=== PATIENT | female | born 1945 | race African-American/Black ===

== ENCOUNTER 2016-04-27 10:30 | Emergency (ER) | payer OTHER ==
[2016-04-27 10:51] VITALS: BMI 40.8
[2016-04-27] MEDS ORDERED: SODIUM CHLORIDE 1,000 ML IV STA (11:01)
--- NOTE | 2016-04-27 11:07 | PDOC ---
History of Present Illness - History of Present Illness Initial Comments: 04/27/16 11:02 70-year-old female with a past medical history of hypertension, hyperlipidemia, and hiatal hernia Patient has no history of CAD, although she has a strong family history of CAD PCP-Dr. Oneil Prasad Patient is complaining of 4-5 days of bilateral neck pain, more on the left lateral neck, less on the right lateral neck, radiating into the left face and into the left head She denies any associated fevers or chills, she denies any posterior neck pain She has had a left sided headache with this off and on This is been going on for 4-5 days and is unrelated to turning her head or changing in position She denies any focal neurologic symptoms She denies any dental pain She denies any cough She states that she did not go to the salon recently or have her head extended back She denies any whiplash or flexion-extension injury She denies any trauma to her neck She denies any chest pain or arm pain She denies any weakness or difficulty walking She states that this pain came on spontaneously She denies any other complaints at this time, and the remainder of the review of systems is negative <Shayla Woodson - Last Filed: 04/28/16 17:54> <Cecilia Riggs - Last Filed: 04/28/16 22:47> - General Chief Complaint: Pain, Acute Stated Complaint: NECK PAIN Time Seen by Provider: 04/27/16 10:44 Past History - Past Medical History Anemia: No Asthma: No Cancer: No GI Disorders: Yes (HIATAL HERNIA) HTN: Yes Hypercholesterolemia: Yes Suicide Attempt (Hx): No - Immunization History Immunization Up to Date: Yes - Psycho/Social/Smoking Cessation Hx Anxiety: No Suicidal Ideation: No Smoking Status: No Smoking History: Never smoked Have you smoked in the past 12 months: No Number of Cigarettes Smoked Daily: 0 Information on smoking cessation initiated: No Hx Alcohol Use: No Drug/Substance Use Hx: No Substance Use Type: None <Shayla Woodson - Last Filed: 04/28/16 17:54> <Cecilia Riggs - Last Filed: 04/28/16 22:47> - Past Medical History Allergies/Adverse Reactions: Allergies Allergy/AdvReac Type Severity Reaction Status Date / Time No Known Allergies Allergy Verified 04/27/16 10:51 Home Medications: Ambulatory Orders Rosuvastatin Calcium [Crestor] 20 mg PO DAILY 03/22/12 Amlodipine Besylate [Norvasc -] 5 mg PO DAILY 06/23/13 Aspirin [ASA -] 81 mg PO DAILY tab.chew 10/09/15 Carvedilol 25 mg PO BID 04/27/16 Quinapril/Hydrochlorothiazide [Accuretic 20-12.5 mg Tablet] 1 each PO DAILY 07/09 Review of Systems - Review of Systems Able to Perform ROS?: Yes Comments:: 04/27/16 11:04 12 point review of systems is as per history of present illness and otherwise negative <Shayla Woodson - Last Filed: 04/28/16 17:54> *Physical Exam - Vital Signs Last Vital Signs Temp Pulse Resp BP Pulse Ox 97.8 F 65 18 175/90 96 04/27/16 10:49 04/27/16 10:49 04/27/16 10:49 04/27/16 10:49 04/27/16 10:49 - Physical Exam Comments: 04/27/16 11:05 Physical exam Last Vital Signs Temp Pulse Resp BP Pulse Ox 97.8 F 65 18 175/90 96 04/27/16 10:49 04/27/16 10:49 04/27/16 10:49 04/27/16 10:49 04/27/16 10:49 GENERAL: The patient is awake, alert, and fully oriented, and in no apparent distress. HEAD: Normal with no signs of trauma. EYES: Pupils equal, round and reactive to light, extraocular movements intact, sclera anicteric, conjunctiva are normal. ENT: nares patent, oropharynx clear without exudates. Moist mucous membranes. There is some left cheek tenderness, although there is no evidence of gum tenderness or dental infection NECK: Normal range of motion, supple without lymphadenopathy, JVD, or masses. There is some diffuse left lateral neck tenderness, without definite adenopathy palpated There is lesser right lateral neck tenderness, with out definite adenopathy palpated There is no midline C-spine tenderness No thyroid mass is palpated LUNGS: Breath sounds equal, clear to auscultation bilaterally. No wheezes, and no crackles. HEART: Regular rate and rhythm, normal S1 and S2 without murmur, rub or gallop. ABDOMEN: Soft, nontender, normoactive bowel sounds. No guarding, no rebound. No masses appreciated. EXTREMITIES: Normal range of motion, no edema. No clubbing or cyanosis. No cords, erythema, or tenderness. NEURO: Mental status: The patient is oriented x3. Cranial nerves: Cranial nerves II through XII are intact Motor: The upper extremities are 5 over 5 in all muscle groups. The lower extremities are 5 over 5 in all muscle groups. Sensation: Sensation is intact to light touch throughout. Cerebellar: [id number] is normal in both upper extremities. Heel-knee- joe is normal in both lower extremities. Gait: Normal. PSYCH: Normal mood, normal affect. SKIN: Warm, Dry, normal turgor, no rashes or lesions noted. <Shayla Woodson - Last Filed: 04/28/16 17:54> - Vital Signs Last Vital Signs Temp Pulse Resp BP Pulse Ox 97.8 F 72 16 134/62 99 04/27/16 10:49 04/27/16 11:21 04/27/16 11:21 04/27/16 11:21 04/27/16 11:21 <Cecilia Riggs - Last Filed: 04/28/16 22:47> ED Treatment Course - LABORATORY CBC & Chemistry Diagram: 04/27/16 11:20 04/27/16 11:20 - RADIOLOGY Radiology Studies Ordered: Category Date Time Status HEAD CT WITH AND W/O CONTRAST [CT] Stat CT Scan 04/27/16 10:59 Ordered NECK CTA [CT] Stat CT Scan 04/27/16 10:59 Ordered CHEST X-RAY PORTABLE* [RAD] Stat Radiology 04/27/16 10:58 Ordered <Shayla Woodson - Last Filed: 04/28/16 17:54> - LABORATORY CBC & Chemistry Diagram: 04/27/16 11:20 04/27/16 11:20 - ADDITIONAL ORDERS Additional order review: Laboratory Results 04/27/16 04/27/16 11:20 11:20 Sodium 141 Potassium 4.1 Chloride 102 Carbon Dioxide 32 Anion Gap 7 L BUN 18 Creatinine 1.1 H Creat Clearance w eGFR 49.25 Random Glucose 106 Calcium 8.6 Magnesium 1.9 Total Bilirubin 0.7 AST 21 ALT 17 D Alkaline Phosphatase 87 Creatine Kinase 191 D CK-MB (CK-2) < 1.000 Troponin I < 0.02 Total Protein 7.0 Albumin 3.6 TSH 0.68 04/27/16 11:20 RBC 4.79 MCV 77.5 L MCHC 31.6 L RDW 15.9 H MPV 8.3 - Medications Given in the ED: ED Medications Discontinued Medications Generic Name Dose Route Start Last Admin Trade Name Sanjuana PRN Reason Stop Dose Admin Acetaminophen 650 mg 04/27/16 11:40 04/27/16 12:00 Tylenol - PO 04/27/16 11:41 650 mg ONCE ONE Administration Sodium Chloride 1,000 mls @ 500 mls/hr 04/27/16 11:01 04/27/16 11:20 Normal Saline - IV 04/27/16 13:00 500 mls/hr ASDIR STA Administration <Cecilia Riggs - Last Filed: 04/28/16 22:47> Medical Decision Making - Medical Decision Making 04/27/16 11:06 70-year-old female with constellation of symptoms is noted One concern would be carotid dissection Which start with labwork, and CTA of the head and neck 04/27/16 17:27 Laboratory Results - last 24 hr 04/27/16 04/27/16 04/27/16 11:20 11:20 11:20 WBC 7.9 RBC 4.79 Hgb 11.7 Hct 37.1 MCV 77.5 L MCHC 31.6 L RDW 15.9 H Plt Count 201 D MPV 8.3 Sodium 141 Potassium 4.1 Chloride 102 Carbon Dioxide 32 Anion Gap 7 L BUN 18 Creatinine 1.1 H Creat Clearance w eGFR 49.25 Random Glucose 106 Calcium 8.6 Magnesium 1.9 Total Bilirubin 0.7 AST 21 ALT 17 D Alkaline Phosphatase 87 Creatine Kinase 191 D CK-MB (CK-2) < 1.000 Troponin I < 0.02 Total Protein 7.0 Albumin [address] head with and without-NAD Awaiting reading on CTA neck SIGN OUT Case discussed in detail with oncoming Emergency Physician including history, physical exam and ancillary studies. Oncoming Emergency Physician has assumed care for the patient and will complete the evaluation and treatment. Transfer of care to Dr. Riggs at 5:30 PM awaiting reading on CTA neck <Shayla Woodson Last Filed: 04/28/16 17:54> - Medical Decision Making 04/28/16 22:46 CTA neck NEGATIVE for any carotid dissection -there was significant discogenic disease particularly in c4,c5 pt discharged home <Cecilia Riggs - Last Filed: 04/28/16 22:47> *DC/Admit/Observation/Transfer <Shayla Woodson - Last Filed: 04/28/16 17:54> <Cecilia Riggs - Last Filed: 04/28/16 22:47> Diagnosis at time of Disposition: Neck pain, Discogenic cervical pain - Discharge Dispostion Disposition: HOME Condition at time of disposition: Stable - Referrals Referrals: Gerardo Thomas MD [Staff Physician] - - Patient Instructions Printed Discharge Instructions: DI for Neck Pain, DI for Degenerative Disc Disease Additional Instructions: please follow up with your primary doctor You should see orthopedist for further evaluation
[2016-04-27 11:33] LABS: MCH 24.5 pg (25.7-33.7); MCHC 31.6 g/dl (32.0-36.0); MEAN CELL VOLUME 77.5 fl (80-96); MEAN PLT VOLUME 8.3 fl (7.5-11.1); PLATELET COUNT 201 K/MM3 (134-434); RDW 15.9 % (11.6-15.6); WHITE BLOOD COUNT 7.9 K/mm3 (4.0-10.0)
[2016-04-27] MEDS ORDERED: ACETAMINOPHEN 325 MG TABLET (FP) PO ONE (11:40)
[2016-04-27] MEDS ORDERED: ACETAMINOPHEN 325 MG TABLET (FP) ONE (11:57)
[2016-04-27 11:59] LABS: ALBUMIN 3.6 g/dl (3.4-5.0); ANION GAP 7 (8-16); BILIRUBIN,TOTAL 0.7 mg/dL (0.2-1.0); CALCIUM 8.6 mg/dL (8.5-10.1); CO2 32 mmol/L (21-32); CREATININE 1.1 mg/dL (0.55-1.02); GLUCOSE,RANDOM 106 mg/dL (74-106); MAGNESIUM 1.9 mg/dL (1.8-2.4); SGPT/ALT 17 U/L (12-78)
[2016-04-27 12:01] LABS: ALK PHOS 87 U/L (45-117); TROPONIN I < 0.02 ng/ml (0.00-0.05)
[2016-04-27 12:02] LABS: SGOT/AST 21 U/L (15-37)
--- NOTE | 2016-04-27 19:03 | EKG ---
Test Reason : Blood Pressure : / mmHG Vent. Rate : 064 BPM Atrial Rate : 064 BPM P-R Int : 230 ms QRS Dur : 098 ms QT Int : 436 ms P-R-T Axes : 052 -31 -03 degrees QTc Int : 449 ms SINUS RHYTHM WITH 1ST DEGREE A-V BLOCK LEFT AXIS DEVIATION NONSPECIFIC T WAVE ABNORMALITY ABNORMAL ECG WHEN COMPARED WITH ECG OF 05-DEC-2015 21:23, FLAT T WAVES NOW EVIDENT IN INFEROLATERAL LEADS Confirmed by NIKKY JOHN MD ([id number]) on 04/27/2016 7:03:08 PM Referred By: Confirmed By:NIKKY JOHN MD
[2016-04-27] MEDS ORDERED: IBUPROFEN 600 MG TABLET (FP) PO ONE ×2 (19:12→19:25)
[2016-04-27 19:38] VITALS: BP 121/82; PULSE 66; TEMP 97.9
== END 2016-04-27 19:42 | disposition home or self-care (01) ==
LOC: JER 10:30
PROC: 3E0337Z Introduction of Electrolytic and Water Balance Substance into Peripheral Vein, Percutaneous Approach (ICD-10-PCS; principal; 2016-04-27)
DX: M50.30 Other cervical disc degeneration, unspecified cervical region (principal); I10 Essential (primary) hypertension; E78.00 Pure hypercholesterolemia, unspecified
CPT/HCPCS: 36415; 70470-TC; 70498-TC; 71010-TC; 80053; 82550; 82553; 83735; 84443; 84484; 85027; 93005; 93010; 96360; 96361; 99283-25

== ENCOUNTER 2016-05-21 19:33 | Emergency (ER) | payer OTHER ==
[2016-05-21 20:15] VITALS: PULSE 83; BMI 40.2
--- NOTE | 2016-05-21 21:18 | PDOC ---
History of Present Illness - General Chief Complaint: Weakness Stated Complaint: WEAKNESS Time Seen by Provider: 05/21/16 21:17 History Source: Patient Exam Limitations: No Limitations - History of Present Illness Initial Comments: 05/21/16 21:55 Patient is a 70-year-old female with history of hypertension and hypercholesterolemia who presents with flulike symptoms for the past 2-3 days. Patient complains of mild frontal headache, coarse cough productive of white sputum, rhinorrhea, sore throat, mild dysphasia, generalized weakness and malaise, and bilateral upper and lower extremity myalgias. Patient also complains of intermittent nausea but denies vomiting/diarrhea/dysuria/rash. Patient reports that 2 of her sons are experiencing flulike symptoms and one of them was diagnosed with influenza. Patient denies travel, complains of tactile fevers and chills. REVIEW OF SYSTEMS CONSTITUTIONAL: + fever, + chills, no fatigue EYES: No visual changes ENT: No ear pain, + sore throat CARDIOVASCULAR: No chest pain, no palpitations RESPIRATORY: + cough, no SOB GI: No abdominal pain, no nausea, no vomiting, no constipation, no diarrhea GENITOURINARY: No dysuria, no frequency, no hematuria MUSKULOSKELETAL: No backpain, no joint pain, + myalgias SKIN: No rash NEURO: + headache EXAMINATION CONSTITUTIONAL: Well-appearing; well-nourished; in no apparent distress HEAD: Normocephalic; atraumatic EYES: PERRL; EOM intact; no photophobia; ENMT: External appears normal; posterior pharynx is minimally erythematous; uvula is midline and nonedematous; there is no exudate NECK: Supple; non-tender; no cervical lymphadenopathy CARD: Normal S1, S2; no murmurs, rubs, or gallops RESP: Normal chest excursion with respiration; breath sounds clear and equal bilaterally; no wheezes, rhonchi, or rales ABD: Soft, non-distended; non-tender; no palpable organomegaly, no palpable hernias EXT: Normal ROM in all four extremities; non-tender to palpation; distal pulses intact SKIN: Warm, dry, no rash NEURO: Cranial nerves II through XII are grossly intact; motor is 554; gait- stable Past History - Past Medical History Allergies/Adverse Reactions: Allergies Allergy/AdvReac Type Severity Reaction Status Date / Time No Known Allergies Allergy Verified 05/21/16 20:11 Home Medications: Ambulatory Orders Rosuvastatin Calcium [Crestor] 20 mg PO DAILY 03/22/12 Amlodipine Besylate [Norvasc -] 5 mg PO DAILY 06/23/13 Aspirin [ASA -] 81 mg PO DAILY tab.chew 10/09/15 Carvedilol 25 mg PO BID 04/27/16 Quinapril/Hydrochlorothiazide [Accuretic 20-12.5 mg Tablet] 1 each PO DAILY 07/09 Oseltamivir Phosphate [Tamiflu -] 75 mg PO BID #10 capsule 05/22/16 Potassium Chloride [K-Dur -] 20 meq PO BID #6 tablet.er 05/22/16 Anemia: No Asthma: No Cancer: No GI Disorders: Yes (HIATAL HERNIA) HTN: Yes Hypercholesterolemia: Yes Suicide Attempt (Hx): No - Immunization History Immunization Up to Date: Yes - Psycho/Social/Smoking Cessation Hx Anxiety: No Suicidal Ideation: No Smoking Status: No Smoking History: Never smoked Have you smoked in the past 12 months: No Number of Cigarettes Smoked Daily: 0 Hx Alcohol Use: No Drug/Substance Use Hx: No Substance Use Type: None *Physical Exam - Vital Signs Last Vital Signs Temp Pulse Resp BP Pulse Ox 98.5 F 83 22 133/76 97 05/21/16 20:13 05/21/16 20:13 05/21/16 20:13 05/21/16 20:13 05/21/16 20:13 Heart Score/ECG Review - ECG Intrepretation Comment:: 05/21/16 22:08 83, sinus rhythm with first-degree AV block, left axis deviation, nonspecific interventricular conduction delay, no ST-T abnormalities, negative voltage criteria for LVH, abnormal EKG. ED Treatment Course - LABORATORY CBC & Chemistry Diagram: 05/21/16 22:28 05/21/16 22:28 - ADDITIONAL ORDERS Additional order review: 05/21/16 20:10 Influenza Types A,B Antigen (MARSHAL) - Final Nasopharyngeal Swab - Final Medical Decision Making - Medical Decision Making 05/22/16 00:18 Patient is a well-appearing 70-year-old female with history of hypertension and high cholesterol who presents with flulike symptoms. In the ER, patient is awake and alert, afebrile with stable vital signs. Patient is noted to be influenza B-positive. CBC is unremarkable. CMP reveals mild hypercalcemia and moderate hypokalemia. Elevated CPK but a normal troponin are also noted. It may be related to patient's statin therapy or a consequence of influenza. EKG shows no evidence of QTC prolongation. Chest x-ray reveals no evidence of infiltrate or effusion, small hiatal hernias noted. We'll administer Tamiflu, we 'll K-Dur and KCl IV. Will reassess. Likely discharge. 05/22/16 01:28 Patient reassessed. Patient is resting comfortably. Patient is safe for discharge with outpatient follow-up. *DC/Admit/Observation/Transfer Diagnosis at time of Disposition: Influenza B, Hypokalemia - Discharge Dispostion Disposition: HOME Condition at time of disposition: Stable - Referrals Referrals: Oneil Prasad MD [Primary Care Provider] - - Patient Instructions Printed Discharge Instructions: Influenza, DI for Hypokalemia Additional Instructions: Please stop taking Crestor until reevaluated by Dr. Oshea. Follow-up with them in several days. Return immediately to the ER for high fever, worsening weakness , severe muscle pains.
[2016-05-21 22:45] LABS: BASOPHIL 1.3 % (0-2.0); EOSINOPHIL 4.8 % (0-4.5); MCH 24.8 pg (25.7-33.7); MCHC 32.4 g/dl (32.0-36.0); MEAN CELL VOLUME 76.5 fl (80-96); MEAN PLT VOLUME 8.5 fl (7.5-11.1); PLATELET COUNT 182 K/MM3 (134-434); RDW 15.8 % (11.6-15.6); WHITE BLOOD COUNT 6.6 K/mm3 (4.0-10.0)
[2016-05-21 23:34] LABS: ALBUMIN 3.6 g/dl (3.4-5.0); ANION GAP 14 (8-16); BILIRUBIN,TOTAL 0.5 mg/dL (0.2-1.0); CALCIUM 8.3 mg/dL (8.5-10.1); CO2 30 mmol/L (21-32); CREATININE 1.6 mg/dL (0.55-1.02); GLUCOSE,RANDOM 109 mg/dL (74-106); SGOT/AST 21 U/L (15-37); SGPT/ALT 15 U/L (12-78); TOT PROT 7.3 g/dl (6.4-8.2)
[2016-05-21 23:36] LABS: ALK PHOS 83 U/L (45-117); TROPONIN I < 0.02 ng/ml (0.00-0.05)
[2016-05-21] MEDS ORDERED: KCL 10 MEQ IVPB 100 ML IVPB SCH (23:45)
[2016-05-21] MEDS ORDERED: POTASSIUM CHLORIDE TABS 20 MEQ TABLET.ER (FP) PO ONE ×2 (23:47→23:54)
[2016-05-21] MEDS ORDERED: OSELTAMIVIR PHOSPHATE 75 MG CAPSULE PO ONE (23:48)
[2016-05-21] MEDS ORDERED: SODIUM CHLORIDE 500 ML IV STA (23:52)
[2016-05-21] MEDS ORDERED: KCL 10 MEQ IVPB 100 ML IVPB ONE (23:54)
[2016-05-21] MEDS ORDERED: OSELTAMIVIR PHOSPHATE 75 MG CAPSULE ONE (23:54)
[2016-05-22 02:06] VITALS: BP 149/85; TEMP 99.3
--- NOTE | 2016-05-22 12:22 | EKG ---
Test Reason : Blood Pressure : / mmHG Vent. Rate : 083 BPM Atrial Rate : 083 BPM P-R Int : 224 ms QRS Dur : 112 ms QT Int : 372 ms P-R-T Axes : 048 -36 066 degrees QTc Int : 437 ms SINUS RHYTHM WITH 1ST DEGREE A-V BLOCK LEFT AXIS DEVIATION INCOMPLETE LEFT BUNDLE BRANCH BLOCK ABNORMAL ECG WHEN COMPARED WITH ECG OF 27-APR-2016 11:21, NO SIGNIFICANT CHANGE WAS FOUND Confirmed by HAILE SHARMA, GRACE ([id number]) on 05/22/2016 12:22:14 PM Referred By: Confirmed By:GRACE BE MD
== END 2016-05-22 01:55 | disposition home or self-care (01) ==
LOC: JER 19:33
PROC: 3E0337Z Introduction of Electrolytic and Water Balance Substance into Peripheral Vein, Percutaneous Approach (ICD-10-PCS; principal; 2016-05-21)
DX: J10.1 Influenza due to other identified influenza virus with other respiratory manifestations (principal); E87.6 Hypokalemia; I10 Essential (primary) hypertension; E78.00 Pure hypercholesterolemia, unspecified
CPT/HCPCS: 36415; 71020-TC; 80053; 82550; 82553; 84484; 85025; 87804; 93005; 93010; 99283-25

== ENCOUNTER 2016-05-27 20:14 | Emergency (ER) | payer OTHER ==
[2016-05-27 20:24] VITALS: BP 132/67; PULSE 73; TEMP 97.9; BMI 38.9
[2016-05-27] MEDS ORDERED: DEXAMETHASONE LIQUID 0.5 MG/5 ML 240 ML BULK BOTTLE PO ONE (21:02)
[2016-05-27] MEDS ORDERED: IBUPROFEN 100 MG/5 ML UNIT DOSE CUPS PO ONE (21:02)
[2016-05-27] MEDS ORDERED: ALBUTEROL SO4 0.083% IH SOL 2.5 MG/3 ML VIAL.NEB. NEB ONE ×2 (21:02→21:07)
[2016-05-27] MEDS ORDERED: DEXAMETHASONE 4 MG TABLET (FP) ONE (21:07)
[2016-05-27] MEDS ORDERED: IBUPROFEN 100 MG/5 ML UNIT DOSE CUPS ONE (21:07)
--- NOTE | 2016-05-27 21:12 | PDOC ---
History of Present Illness - General Chief Complaint: Sore Throat Stated Complaint: SORE THROAT Time Seen by Provider: 05/27/16 20:30 History Source: Patient Exam Limitations: No Limitations - History of Present Illness Initial Comments: 05/27/16 21:12 CHIEF COMPLAINT: Throat pain HISTORY OF PRESENT ILLNESS: This is a 70-year-old female with history of hypertension and hypercholesterolemia who was seen here on 05/21 and diagnosed with Influenza B. She completed a course of Tamiflu. She returns today with persistent cough/wheeze and throat pain. She has been "spitting" all day because it is so painful to swallow. She has had chills, but no fever. Vital signs on arrival are unremarkable. REVIEW OF SYSTEMS: GENERAL/CONSTITUTIONAL: No fever or chills. No weakness. No weight change. HEAD, EYES, EARS, NOSE AND THROAT: Throat pain/painful swallowing. CARDIOVASCULAR: No chest pain or palpitations. RESPIRATORY: Cough and wheezing. No shortness of breath. GASTROINTESTINAL: No nausea, vomiting, diarrhea or constipation. GENITOURINARY: No dysuria, frequency, or change in urination. MUSCULOSKELETAL: No joint or muscle swelling or pain. No neck or back pain. SKIN: No rash or easy bruising. NEUROLOGIC: No headache, vertigo, loss of consciousness, or loss of sensation. HEMATOLOGIC/LYMPHATIC: No anemia, easy bleeding, or history of blood clots. ALLERGIC/IMMUNOLOGIC: No hives or skin allergy. No latex allergy. PHYSICAL EXAM: GENERAL: The patient is awake, alert, and fully oriented, in no acute distress. ENT: Pharyngeal erythema, + tonsillar swelling, + cervical adenopathy. No exudates. Pupils equal, round and reactive to light, extraocular movements intact, sclera anicteric, conjunctiva clear. Neck supple. LUNGS: Coughing. No wheezing. Normal excursion. No respiratory distress or use of accessory muscles. CV: RRR, S1/S2, no MRG. Cap refill < 2 sec. ABDOMEN: Soft, non-distended, non-tender. EXTREMITIES: Normal range of motion, no edema. NEUROLOGICAL: Normal speech, normal gait. CN II-XII grossly intact. PSYCH: Normal mood, normal affect. SKIN: Warm, dry, normal turgor, no rashes or lesions noted. Past History - Past Medical History Allergies/Adverse Reactions: Allergies Allergy/AdvReac Type Severity Reaction Status Date / Time No Known Allergies Allergy Verified 05/27/16 20:22 Home Medications: Ambulatory Orders Rosuvastatin Calcium [Crestor] 20 mg PO DAILY 03/22/12 Amlodipine Besylate [Norvasc -] 5 mg PO DAILY 06/23/13 Aspirin [ASA -] 81 mg PO DAILY tab.chew 10/09/15 Carvedilol 25 mg PO BID 04/27/16 Quinapril/Hydrochlorothiazide [Accuretic 20-12.5 mg Tablet] 1 each PO DAILY 07/09 Oseltamivir Phosphate [Tamiflu -] 75 mg PO BID #10 capsule 05/22/16 Potassium Chloride [K-Dur -] 20 meq PO BID #6 tablet.er 05/22/16 Amoxicillin/Potassium Clav [Augmentin 875-125 Tablet] 1 each PO BID #14 tablet 05/27/16 Anemia: No Asthma: No Cancer: No GI Disorders: Yes (HIATAL HERNIA) HTN: Yes Hypercholesterolemia: Yes Suicide Attempt (Hx): No - Immunization History Immunization Up to Date: Yes - Psycho/Social/Smoking Cessation Hx Anxiety: No Suicidal Ideation: No Smoking Status: No Smoking History: Never smoked Have you smoked in the past 12 months: No Number of Cigarettes Smoked Daily: 0 Information on smoking cessation initiated: No Hx Alcohol Use: No Drug/Substance Use Hx: No Substance Use Type: None *Physical Exam - Vital Signs Last Vital Signs Temp Pulse Resp BP Pulse Ox 97.9 F 73 14 132/67 95 05/27/16 20:22 05/27/16 20:22 05/27/16 20:22 05/27/16 20:22 05/27/16 20:22 ED Treatment Course - RADIOLOGY Radiology Studies Ordered: Category Date Time Status CHEST PA & LAT [RAD] Stat Radiology 05/27/16 21:02 Ordered Medical Decision Making - Medical Decision Making 05/27/16 23:09 A/P: 70 year old female with throat pain, tonsillar swelling, and cervical adenopathy. 1. CXR (coughing, post-influenza, r/o infiltrate) 2. Albuterol neb x 1 for cough 3. Decadron 10mg po x 1 4. Throat culture CXR wet read: no infiltrate Patient is feeling better following Decadron/albuterol and requesting to be discharged Throat culture is pending - will treat empirically with Augmentin *DC/Admit/Observation/Transfer Diagnosis at time of Disposition: Throat pain - Discharge Dispostion Disposition: HOME Condition at time of disposition: Improved Admit: No - Prescriptions Prescriptions: Amoxicillin/Potassium Clav [Augmentin 875-125 Tablet] 1 each PO BID #14 tablet - Referrals Referrals: Oneil Prasad MD [Primary Care Provider] - 3 days - Patient Instructions Printed Discharge Instructions: DI for Pharyngitis/Tonsillopharyngitis -- Adult Additional Instructions: -You were given a one-time dose of steroids for throat inflammation -Continue antibiotics as prescribed -Follow up with Dr. Prasad -Return here for difficulty breathing, inability to swallow your saliva, or any other concerning symptoms
== END 2016-05-27 22:19 | disposition home or self-care (01) ==
LOC: JERFT 20:14
PROC: 3E0F7GC Introduction of Other Therapeutic Substance into Respiratory Tract, Via Natural or Artificial Opening (ICD-10-PCS; principal; 2016-05-27)
DX: J02.9 Acute pharyngitis, unspecified (principal); I10 Essential (primary) hypertension
CPT/HCPCS: 71020-TC; 87070; 87430; 94640; 99281-25

== ENCOUNTER 2016-06-15 10:13 | Emergency (ER) | payer OTHER ==
[2016-06-15 10:18] VITALS: TEMP 98.2; BMI 39.6
--- NOTE | 2016-06-15 10:33 | PDOC ---
History of Present Illness - General Chief Complaint: Respiratory Stated Complaint: COUGH Time Seen by Provider: 06/15/16 10:32 History Source: Patient Exam Limitations: No Limitations - History of Present Illness Initial Comments: 70 F h/o significant family h/o cardiac disease, HTN, HLD, and chronic back pain presented to the ED with cough and shortness of breath. The symptom has been getting worse since last night, associated with nausea and chronic non productive cough which has been persistent since last time she's treated for flu in and finished tamiflu as outpatient. Patient stated that she's experiencing increasing excercise intolerance and feel like something is dripping down her throat and cough more when she wakes up in the morning. Denies fever, chills, chest pain, chest pressure, dizziness, focal weakness. Past History - Past Medical History Allergies/Adverse Reactions: Allergies Allergy/AdvReac Type Severity Reaction Status Date / Time No Known Allergies Allergy Verified 06/15/16 10:16 Home Medications: Ambulatory Orders Amlodipine Besylate [Norvasc -] 10 mg PO DAILY 06/23/13 Aspirin [ASA -] 81 mg PO DAILY tab.chew 10/09/15 Carvedilol 25 mg PO BID 04/27/16 Benzonatate [Tessalon Pearls -] 100 mg PO TID #21 capsule 06/15/16 Loratadine [Claritin -] 10 mg PO DAILY #7 tablet 06/15/16 Ondansetron [Zofran -] 4 mg PO BID #7 tablet 06/15/16 Anemia: No Asthma: No Cancer: No GI Disorders: Yes (HIATAL HERNIA) HTN: Yes Hypercholesterolemia: Yes Suicide Attempt (Hx): No - Immunization History Immunization Up to Date: Yes - Psycho/Social/Smoking Cessation Hx Anxiety: No Suicidal Ideation: No Smoking Status: No Smoking History: Never smoked Have you smoked in the past 12 months: No Number of Cigarettes Smoked Daily: 0 Hx Alcohol Use: No Drug/Substance Use Hx: No Substance Use Type: None *Physical Exam - Vital Signs Last Vital Signs Temp Pulse Resp BP Pulse Ox 98.2 F 78 18 138/78 98 06/15/16 10:15 06/15/16 10:15 06/15/16 10:15 06/15/16 10:15 06/15/16 10:15 ED Treatment Course - LABORATORY CBC & Chemistry Diagram: 06/15/16 10:40 04/23/17 10:52 Medical Decision Making - Medical Decision Making 06/15/16 11:57 71 yo F c/o shortness of breath with cough. Patient was previously admitted for chest pain and flu respectively. Will obtain cardiac enzyme, cbc, cmp, cxr. Ddx include bronchitis, post-nasal drip 06/15/16 12:04 CXR negative for any pulmonary disease, EKG shows no acute change, CBC within normal limits. Awaits electrolytes. 06/15/16 12:17 Chemistry negative for any acute electrolyte imbalance, Cr is elevated but at baseline. Will discharge the patient on tessalon zofran and claritin. Instructed the patient to follow up with her PMD regarding kidney function. *DC/Admit/Observation/Transfer Diagnosis at time of Disposition: Shortness of breath, Post-nasal drip, Cough - Discharge Dispostion Disposition: HOME Condition at time of disposition: Stable - Prescriptions Prescriptions: Loratadine [Claritin -] 10 mg PO DAILY #7 tablet Benzonatate [Tessalon Pearls -] 100 mg PO TID #21 capsule Ondansetron [Zofran -] 4 mg PO BID #7 tablet - Referrals Referrals: Oneil Prasad MD [Primary Care Provider] - - Patient Instructions Additional Instructions: You were seen in the ED because of shortness of breath with cough after flu. The shortness of breath is likely due to your persistent cough and post-nasal drip. All your blood work, EKG and chest X-ray are negative. Please take clarin for a week and tessalon 3 times a day as needed. Come back in the ER if you develop fever, chills, chest pain, worsening shortness of breath.
[2016-06-15 11:31] LABS: MCH 25.1 pg (25.7-33.7); MEAN CELL VOLUME 78.4 fl (80-96); MEAN PLT VOLUME 8.6 fl (7.5-11.1); RDW 16.1 % (11.6-15.6); WHITE BLOOD COUNT 8.9 K/mm3 (4.0-10.0)
[2016-06-15 11:42] LABS: MAGNESIUM 1.9 mg/dL (1.8-2.4)
[2016-06-15 11:43] LABS: TROPONIN I < 0.02 ng/ml (0.00-0.05)
[2016-06-15 12:05] LABS: PLATELET COUNT 158 K/MM3 (134-434)
[2016-06-15 12:05] LABS: ALBUMIN 3.4 g/dl (3.4-5.0); BILIRUBIN,TOTAL 0.6 mg/dL (0.2-1.0); CALCIUM 8.4 mg/dL (8.5-10.1); COCKROFT - GAULT 76.33; CREATININE 1.1 mg/dL (0.55-1.02)
[2016-06-15 12:24] VITALS: BP 130/74; PULSE 74
--- NOTE | 2016-06-18 08:23 | EKG ---
Test Reason : Blood Pressure : / mmHG Vent. Rate : 078 BPM Atrial Rate : 078 BPM P-R Int : 206 ms QRS Dur : 086 ms QT Int : 398 ms P-R-T Axes : 038 -39 -09 degrees QTc Int : 453 ms NORMAL SINUS RHYTHM LEFT AXIS DEVIATION JUNCTIONAL ST DEPRESSION, PROBABLY ABNORMAL ABNORMAL ECG WHEN COMPARED WITH ECG OF 21-MAY-2016 21:58, Confirmed by NEL BELLO MD ([id number]) on 06/18/2016 8:22:57 AM Referred By: Confirmed By:NEL BELLO MD
== END 2016-06-15 12:27 | disposition home or self-care (01) ==
LOC: SUPCPDRO 10:13 → JER 10:13
DX: R09.82 Postnasal drip (principal); R05 Cough; I10 Essential (primary) hypertension; E78.00 Pure hypercholesterolemia, unspecified
CPT/HCPCS: 36415; 71010-TC; 80053; 82550; 83735; 84484; 85025; 93005; 93010; 99283-25

== ENCOUNTER 2016-07-11 20:22 | Emergency (ER) | payer OTHER ==
[2016-07-11 20:50] VITALS: BP 156/86; PULSE 75; TEMP 98; BMI 39.6
--- NOTE | 2016-07-11 22:18 | PDOC ---
History of Present Illness - General History Source: Patient Exam Limitations: No Limitations - History of Present Illness Initial Comments: 07/11/16 22:21 The patient is a 71 year old female with a significant past medical history of HTN, HLD, anosmia, who presents to the ER with gradually worsening bilateral lower leg swelling for four days. Patient reports she had similar symptoms about 4-5 months ago that she reports were resolved with leg elevations. Patient states she was diagnosed with a first degree heart block 6 months ago and was given Carvedilol for the symptoms. Patient also reports having a productive cough with white sputum for about a month. Crampy legs when she walks Pins and needles in left leg Denies nausea, vomiting, diarrhea Denies dizziness Denies chest pain, shortness of breath, orthopnea Denies calf pain Family Hx: Son from [place]. Mother from stroke PCP: Dr. Sim <Mili Acosta - Last Filed: 07/12/16 01:33> <Elizabeth Adams - Last Filed: 07/12/16 19:51> - General Chief Complaint: Edema Stated Complaint: BOTH FEET SWOLLENG/PAIN Time Seen by Provider: 07/11/16 21:41 Past History <Mili Acosta - Last Filed: 07/12/16 01:33> - Past Medical History Anemia: No Asthma: No Cancer: No GI Disorders: Yes (HIATAL HERNIA) HTN: Yes Hypercholesterolemia: Yes Suicide Attempt (Hx): No - Immunization History Immunization Up to Date: Yes - Psycho/Social/Smoking Cessation Hx Anxiety: No Suicidal Ideation: No Smoking Status: No Smoking History: Never smoked Have you smoked in the past 12 months: No Number of Cigarettes Smoked Daily: 0 Information on smoking cessation initiated: No Hx Alcohol Use: No Drug/Substance Use Hx: No Substance Use Type: None <Elizabeth Adams - Last Filed: 07/12/16 19:51> - Past Medical History Allergies/Adverse Reactions: Allergies Allergy/AdvReac Type Severity Reaction Status Date / Time No Known Allergies Allergy Verified 06/15/16 10:16 Home Medications: Ambulatory Orders Amlodipine Besylate [Norvasc -] 10 mg PO DAILY 06/23/13 Aspirin [ASA -] 81 mg PO DAILY tab.chew 10/09/15 Carvedilol 25 mg PO BID 04/27/16 Benzonatate [Tessalon Pearls -] 100 mg PO TID #21 capsule 06/15/16 Loratadine [Claritin -] 10 mg PO DAILY #7 tablet 06/15/16 Ondansetron [Zofran -] 4 mg PO BID #7 tablet 06/15/16 Review of Systems - Review of Systems Comments:: 07/11/16 22:54 CONSTITUTIONAL: Absent: fever, no chills, no fatigue EYES: Absent: visual changes ENT: Absent: ear pain, no sore throat CARDIOVASCULAR: Absent: chest pain, no palpitations RESPIRATORY: Present: (+)cough Absent: no SOB GI: Absent: abdominal pain, no nausea, no vomiting, no constipation, no diarrhea GENITOURINARY: Absent: dysuria, no frequency, no hematuria MUSCULOSKELETAL: Present: Bilateral leg edema Absent: back pain, no arthralgia, no myalgia SKIN: Absent: rash NEURO: Absent: headache <Uts,Mili - Last Filed: 07/12/16 01:33> *Physical Exam - Vital Signs Last Vital Signs Temp Pulse Resp BP Pulse Ox 98.0 F 75 23 156/86 98 07/11/16 20:46 07/11/16 20:46 07/11/16 20:46 07/11/16 20:46 07/11/16 20:46 - Physical Exam Comments: 07/11/16 22:54 GENERAL: Well-appearing, well-nourished. No apparent distress. HEENT: Normocephalic, atraumatic. PERRL, EOM intact. CARDIOVASCULAR: Normal S1, S2. Regular rate and rhythm. PULMONARY: Clear to auscultation bilaterally. ABDOMEN: Soft, non-distended, non-tender. EXTREMITIES: 1-2+ pedal edema bilaterally. No calf tenderness. Normal ROM in all four extremities. SKIN: Warm, dry. No rash NEUROLOGICAL: No focal neurological deficits. <Uts,Mili - Last Filed: 07/12/16 01:33> - Vital Signs Last Vital Signs Temp Pulse Resp BP Pulse Ox 98.0 F 75 23 156/86 98 07/11/16 20:46 07/11/16 20:46 07/11/16 20:46 07/11/16 20:46 07/11/16 20:46 <Elizabeth Adams - Last Filed: 07/12/16 19:51> ED Treatment Course - LABORATORY CBC & Chemistry Diagram: 07/11/16 22:45 07/11/16 22:45 <Mili Acosta - Last Filed: 07/12/16 01:33> - LABORATORY CBC & Chemistry Diagram: 07/11/16 22:45 07/11/16 22:45 <Elizabeth Adams - Last Filed: 07/12/16 19:51> Medical Decision Making - Medical Decision Making 07/12/16 01:13 Report Date: 07/12/2016 00:09:00 Report Status: Preliminary === Begin of Report Content Referring Physician: Elizabeth Adams Patient Name: Adriana Ann This is a preliminary report by imaging external relations manager Exam: Bilateral lower extremity venous duplex Images: 40 Clinical indication: Rule out DVT. Findings: The common femoral, proximal deep femoral , proximal greater saphenous femoral, popliteal and and posterior tibial veins were examined bilaterally using mckinley scale, color, and Doppler venous imaging. All levels exhibited normal compressibility, color signal, and Doppler venous wave forms. No filling defects were identified. Impression: Bilateral lower extremity venous duplex negative for deep venous thrombosis. THIS DOCUMENT HAS BEEN ELECTRONICALLY SIGNED 07/12/16 19:50 Pt also complains of a white productive cough. CXR is normal and she has no fever so I will not treat this with any meds. Pt's repeat vitals are normal and she is compliant with all of her meds. SHe will follow with her PMD. <Elizabeth Adams - Last Filed: 07/12/16 19:51> *DC/Admit/Observation/Transfer - Attestations Scribe Attestion: 07/11/16 22:55 Documentation prepared by Mili Acosta, acting as medical care evaluation specialist for Elizabeth Adams MD. <Mili Acosta - Last Filed: 07/12/16 01:33> - Discharge Dispostion Admit: No <Elizabeth Adams - Last Filed: 07/12/16 19:51> Diagnosis at time of Disposition: Leg swelling, Pins and needles sensation - Discharge Dispostion Disposition: HOME Condition at time of disposition: Stable - Referrals Referrals: Oneil Prasad MD [Primary Care Provider] - - Patient Instructions Printed Discharge Instructions: DI for Leg Pain Additional Instructions: compression stockings
[2016-07-11 23:06] LABS: BASOPHIL 1.3 % (0-2.0); EOSINOPHIL 7.9 % (0-4.5); MCH 24.5 pg (25.7-33.7); MCHC 31.8 g/dl (32.0-36.0); MEAN PLT VOLUME 8.1 fl (7.5-11.1); PLATELET COUNT 211 K/MM3 (134-434); RDW 16.5 % (11.6-15.6)
[2016-07-11 23:23] LABS: INR 1.06 (0.82-1.09); PROTHROMBIN TIME (PATIENT) 11.7 SEC (9.98-11.88)
[2016-07-11 23:34] LABS: ALBUMIN 3.8 g/dl (3.4-5.0); BILIRUBIN,TOTAL 0.7 mg/dL (0.2-1.0); CALCIUM 8.8 mg/dL (8.5-10.1); COCKROFT - GAULT 83.963; TOT PROT 7.2 g/dl (6.4-8.2)
== END 2016-07-12 02:01 | disposition home or self-care (01) ==
LOC: SUPCPDRO 20:22 → JER 20:22
DX: R60.0 Localized edema (principal); R20.2 Paresthesia of skin; I10 Essential (primary) hypertension; E78.00 Pure hypercholesterolemia, unspecified; R43.0 Anosmia
CPT/HCPCS: 36415; 71020-TC; 80053; 83880; 85025; 85610; 93970-TC; 99282-25

== ENCOUNTER → 2016-08-02 | Emergency (ER) | payer OTHER ==
[~2016-08-02] MED LIST: ACETAMINOPHEN 325 MG TABLET (FP) PO ONE
[2016-08-02 12:20] VITALS: BP 154/84; PULSE 81; TEMP 97.9; BMI 39.6
--- NOTE | 2016-08-02 12:46 | PDOC ---
History of Present Illness - General Chief Complaint: Edema Stated Complaint: SWOLLEN FEET Time Seen by Provider: 08/02/16 12:42 History Source: Patient Exam Limitations: No Limitations - History of Present Illness Initial Comments: 08/02/16 13:05 71y F hx of htn, hl, ?renal problems - currently being worked up by dr. Gudino , presents with leg pain and swelling. Pt states that for the past few days she has had incerased pain on ambulation. The pain is localized to the dorsum of her LLE/anterior ankle and radiates to her toe - it is worse when she is dorsiflexing and ambulating. When she is resting she is fine. Pt also notes she has had swelling in her extremities for several months, improves when she is keeping them elevated / sleeping, worse after she ambulates. pt denies any other complaints including cp, sob, cough, palpitations, hemoptysis, calf pain. Past History - Past Medical History Allergies/Adverse Reactions: Allergies Allergy/AdvReac Type Severity Reaction Status Date / Time No Known Allergies Allergy Verified 08/02/16 12:18 Home Medications: Ambulatory Orders Amlodipine Besylate [Norvasc -] 10 mg PO DAILY 06/23/13 Aspirin [ASA -] 81 mg PO DAILY tab.chew 10/09/15 Carvedilol 25 mg PO BID 04/27/16 Benzonatate [Tessalon Pearls -] 100 mg PO TID #21 capsule 06/15/16 Loratadine [Claritin -] 10 mg PO DAILY #7 tablet 06/15/16 Ondansetron [Zofran -] 4 mg PO BID #7 tablet 06/15/16 Anemia: No Asthma: No Cancer: No GI Disorders: Yes (HIATAL HERNIA) HTN: Yes Hypercholesterolemia: Yes Suicide Attempt (Hx): No Other medical history: being worked up for kidney disease - Immunization History Immunization Up to Date: Yes - Psycho/Social/Smoking Cessation Hx Anxiety: No Suicidal Ideation: No Smoking Status: No Smoking History: Never smoked Have you smoked in the past 12 months: No Number of Cigarettes Smoked Daily: 0 Hx Alcohol Use: No Drug/Substance Use Hx: No Substance Use Type: None Review of Systems - Review of Systems Able to Perform ROS?: Yes Comments:: 08/02/16 13:15 Constitutional - no reported Fever, Chills, HEENT: no reported vision changes, sore throat Respiratory: no reported cough, sob, hemoptysis Cardiac: no reported chest pain, palpitations, light headedness, leg swelling Abd/GI: no reported abd pain, nausea, vomiting, blood per rectum, melena, diarrhea : no reported dysuria, frequency, discharge Musculskelatal - +b/l leg swelling, L foot/ankle pain no reported back pain, joint swelling skin - no reported bruising, erythema, rash neurological: no reported headache, numbness, focal weakness, tingling, ataxia, hematologic: no reported anemia, easy bruising, easy bleeding *Physical Exam - Vital Signs Last Vital Signs Temp Pulse Resp BP Pulse Ox 97.9 F 81 18 154/84 99 08/02/16 12:19 08/02/16 12:19 08/02/16 12:19 08/02/16 12:19 08/02/16 12:19 - Physical Exam Comments: 08/02/16 13:17 GENERAL: The patient is awake, alert, and fully oriented, Nontoxic - in no acute distress. HEAD: Normocephalic, atraumatic. EYES: extraocular movements intact, sclera anicteric, conjunctiva clear. ENT: Normal voice, Moist mucous membranes. NECK: Normal range of motion, supple LUNGS: Breath sounds equal, clear to auscultation bilaterally. No wheezes, no rhonchi, no rales. HEART: Regular rate and rhythm, normal S1 and S2 without murmur, rub or gallop. ABDOMEN: Soft, nontender, normoactive bowel sounds. No guarding, no rebound. . No CVA tenderness EXTREMITIES: +tenderness to extensor halisus longus (reproducible with dorsflexion and palpation), neg calf tenderness, neg homans sign, +1 pitting edema b/l in ankles NEUROLOGICAL: No facial assymetry, Normal speech, PSYCH: Normal mood, normal affect. SKIN: Warm, Dry, normal turgor, Medical Decision Making - Medical Decision Making 08/02/16 13:23 suspect tendonitis will r/ odvt with US pt with labsin the ast month, will dfer lab work 08/02/16 16:21 pts DVT negative will dc with supportive care at home will have pt fu with pmd and renal I discussed the physical exam findings, ancillary test results and final diagnoses with the patient. I answered all of the patient's questions. The patient was satisfied with the care received and felt comfortable with the discharge plan and treatment plan. The patient will call their primary care physician within 24 hours to arrange follow-up and will return to the Emergency Department with any new, persistent or worsening symptoms. *DC/Admit/Observation/Transfer Diagnosis at time of Disposition: Leg edema, Tendonitis of ankle or foot - Discharge Dispostion Disposition: HOME Condition at time of disposition: Improved Admit: No - Referrals Referrals: Oneil Prasad MD [Primary Care Provider] - - Patient Instructions Printed Discharge Instructions: DI for Dependent Edema, DI for Tendinitis Additional Instructions: Return to the emergency department immediately with ANY new, persistent or worsening symptoms. Take tylenol as needed for your pain. Keep your leg elevated to minimize swelling. You MUST call and follow up with your doctor tomorrow for further evaluation of your symptoms. Results were discussed with you. Please make sure your doctor reviews the results of your emergency evaluation. Print Language: ZAMBIAN
== END | disposition home or self-care (01) ==
LOC: JER 12:16
DX: M77.8 Other enthesopathies, not elsewhere classified (principal); M79.89 Other specified soft tissue disorders; I10 Essential (primary) hypertension; E78.00 Pure hypercholesterolemia, unspecified
CPT/HCPCS: 93971-TC; 99281-25

== ENCOUNTER 2016-08-19 16:10 | Emergency (ER) | payer OTHER ==
[2016-08-19 16:19] VITALS: BMI 40.4
[2016-08-19] MEDS ORDERED: LABETALOL HCL 5 MG/1 ML (100MG/20 ML VIAL) IVPUSH ONE (16:27)
[2016-08-19] MEDS ORDERED: FUROSEMIDE 40 MG/4 ML INJECTABLE VIAL IVPUSH ONE (16:27)
[2016-08-19] MEDS ORDERED: LABETALOL HCL 5 MG/1 ML (200MG/40ML VIAL) IVPB ONE (16:52)
[2016-08-19] MEDS ORDERED: FUROSEMIDE 40 MG/4 ML INJECTABLE VIAL ONE (16:52)
--- NOTE | 2016-08-19 17:11 | PDOC ---
History of Present Illness - General History Source: Patient Exam Limitations: No Limitations - History of Present Illness Initial Comments: CHIEF COMPLAINT: 71 y/o afebrile female with PMH HTN and CHF c/o worsening LE swelling and SOB. HISTORY OF PRESENT ILLNESS: The patient states for the past 2 months her lower extremity swelling has been getting worse, along with her SOB on exertion. She admits this morning she did have some chest discomfort which has resolved. She used to take amlodipine and lasix but was taken off because of swelling and low potassium. She states she went to see her [employer], Dr. Resendiz today, and he wanted her to come here because her BP was very high. She denies REBOLLEDO, changes in vision/hearing, neck pain, cough, hemoptysis, n/v/d, abd pain, back pain, orthopnea. Dr. Resendiz would like the patient to have IV labetalol and lasix. Vital signs on arrival are notable for BP of 210/110. REVIEW OF SYSTEMS: GENERAL/CONSTITUTIONAL: No fever/chills. No weakness. No weight change. HEAD, EYES, EARS, NOSE AND THROAT: No change in vision. No ear pain or discharge. No sore throat. CARDIOVASCULAR: +CP. +SOB on exertion. No orthopnea RESPIRATORY: No cough, wheezing, or hemoptysis. GASTROINTESTINAL: No abd pain, nausea, vomiting, diarrhea. GENITOURINARY: No dysuria, frequency, or change in urination. MUSCULOSKELETAL: +LE swelling. No neck or back pain. SKIN: No rash or easy bruising. NEUROLOGIC: No headache, vertigo, loss of consciousness, or loss of sensation. PHYSICAL EXAM: GENERAL: The patient is awake, alert, and fully oriented, in no acute distress. She is a pleasant, morbidly obese, ambulatory female who is in NAD and speaks in full sentences. HEAD: Normal with no signs of trauma. ENT: Pupils equal, round and reactive to light, extraocular movements intact, sclera anicteric, conjunctiva clear. Neck supple. LUNGS: Clear to auscultation bilaterally. Normal excursion. No respiratory distress or use of accessory muscles. CV: RRR, S1/S2, no MRG. Cap refill < 2 sec. ABDOMEN: Soft, non-distended, non-tender even to deep palpation, no hepatomegaly or splenomegaly, no masses. EXTREMITIES: Normal range of motion. 1+ pitting edema right LE. 2+ pitting edema left LE. NEUROLOGICAL: Normal speech, normal gait. CN II-XII grossly intact. No slurred speech. No facial drooping. Normal finger to nose. Normal rapid alternating movements. A&Ox 3. Equal straight leg raise b/l. PSYCH: Normal mood, normal affect. SKIN: Warm, dry, normal turgor, no rashes or lesions noted. <Shayla Reed - Last Filed: 08/19/16 18:54> <Kelly Odell - Last Filed: 08/19/16 20:02> - General Chief Complaint: Shortness of Breath Stated Complaint: HIGH BP Time Seen by Provider: 08/19/16 16:26 Past History - Past Medical History Anemia: No Asthma: No Cancer: No GI Disorders: Yes (HIATAL HERNIA) HTN: Yes Hypercholesterolemia: Yes Suicide Attempt (Hx): No Other medical history: back problems - Immunization History Immunization Up to Date: Yes - Psycho/Social/Smoking Cessation Hx Anxiety: No Suicidal Ideation: No Smoking Status: No Smoking History: Never smoked Have you smoked in the past 12 months: No Number of Cigarettes Smoked Daily: 0 Information on smoking cessation initiated: No Hx Alcohol Use: No Drug/Substance Use Hx: No Substance Use Type: None <Shayla Reed - Last Filed: 08/19/16 18:54> <Kelly Odell - Last Filed: 08/19/16 20:02> - Past Medical History Allergies/Adverse Reactions: Allergies Allergy/AdvReac Type Severity Reaction Status Date / Time No Known Allergies Allergy Verified 08/19/16 17:36 Home Medications: Ambulatory Orders Carvedilol 25 mg PO BID 04/27/16 Quinapril HCl [Accupril -] 10 mg PO TID 08/19/16 Rosuvastatin Calcium [Crestor] 10 mg PO DAILY 08/19/16 *Physical Exam - Vital Signs Last Vital Signs Temp Pulse Resp BP Pulse Ox 97.4 F L 65 18 210/110 97 08/19/16 16:13 08/19/16 16:13 08/19/16 16:13 08/19/16 16:13 08/19/16 16:13 <Shayla Reed - Last Filed: 08/19/16 18:54> - Vital Signs Last Vital Signs Temp Pulse Resp BP Pulse Ox 98.7 F 63 18 203/100 100 08/19/16 17:40 08/19/16 18:47 08/19/16 18:47 08/19/16 18:47 08/19/16 18:47 <Kelly Odell - Last Filed: 08/19/16 20:02> Heart Score/ECG Review - ECG Intrepretation Comment:: Twelve-lead EKG was performed and reviewed by Dr. Canas. There is sinus bradycardia with sinus arrhythmia. The axis is normal. The intervals are normal. There are no ST or T wave abnormalities. Impression: Borderline twelve-lead EKG <Shayla Reed - Last Filed: 08/19/16 18:54> ED Treatment Course - LABORATORY CBC & Chemistry Diagram: 08/19/16 17:32 08/19/16 17:32 - RADIOLOGY Radiology Studies Ordered: Category Date Time Status CHEST PA & LAT [RAD] Stat Radiology 08/19/16 16:28 Ordered <Shayla Reed - Last Filed: 08/19/16 18:54> - LABORATORY CBC & Chemistry Diagram: 08/19/16 17:32 08/19/16 17:32 - ADDITIONAL ORDERS Additional order review: Laboratory Results 08/19/16 17:32 Sodium 140 Potassium 4.2 Chloride 103 Carbon Dioxide 30 Anion Gap 7 L BUN 13 Creatinine 0.9 Creat Clearance w eGFR > 60 Random Glucose 81 Calcium 9.0 Total Bilirubin 0.8 AST 17 ALT 17 Alkaline Phosphatase 78 Creatine Kinase 171 D CK-MB (CK-2) < 1.000 Troponin I < 0.02 B-Natriuretic Peptide 200.56 H Total Protein 7.1 Albumin 3.5 08/19/16 17:32 RBC 4.39 MCV 77.4 L MCHC 31.4 L RDW 16.2 H MPV 8.3 Neutrophils % 53.8 Lymphocytes % 28.7 Monocytes % 7.9 Eosinophils % 8.4 H Basophils % 1.2 - Medications Given in the ED: ED Medications Discontinued Medications Generic Name Dose Route Start Last Admin Trade Name Freq PRN Reason Stop Dose Admin Carvedilol 25 mg 08/19/16 18:29 08/19/16 18:38 Coreg - PO 08/19/16 18:30 25 mg ONCE ONE Administration Furosemide 40 mg 08/19/16 16:27 08/19/16 17:35 Lasix Injection - IVPUSH 08/19/16 16:28 40 mg ONCE ONE Administration Labetalol HCl 20 mg 08/19/16 16:27 08/19/16 17:35 Normodyne Injection - IVPUSH 08/19/16 16:28 20 mg ONCE ONE Administration <Kelly Odell - Last Filed: 08/19/16 20:02> Medical Decision Making - Medical Decision Making A/P: 71 y/o afebrile female with worsening SOB on exertion and LE edema sent in by Dr. Resendiz. Plan is as follows: 1. Labs 2. EKG 3. CXR 4. IV labetalol 5. IV lasix Labs otherwise unremarkable. 1st troponin negative BNP 200 The patient states she already feels better after IV labetalol and IV lasix. However, her BP is still 203/[address] Resendiz I am signing this patient out to my colleague: TUTU Odell In brief, this patient is being seen in the ED for a chief complaint of: SOB on exertion, LE edema I have completed the initial assessment interview note and have ordered: labs, CXR, EKG I have reviewed the following results: Labs, EKG Pending results are: CXR Please call the PCP: Osmar Plan for disposition is as follows: Most likely admission <Shayla Reed - Last Filed: 08/19/16 18:54> - Medical Decision Making 08/19/16 19:29 Patient repeat B/P 164/99. She denies Cp, SOB, Diff breathing, back pain. Patient otherwise appears well. 08/19/16 20:01 2 Calls placed to PCP. No return call. Patient requesting to go home, states she feels fine and will f/u with Cardiology. <Kelly Odell - Last Filed: 08/19/16 20:02> *DC/Admit/Observation/Transfer <Shayla Reed - Last Filed: 08/19/16 18:54> - Discharge Dispostion Admit: No <Kelly Odell - Last Filed: 08/19/16 20:02> Diagnosis at time of Disposition: SOB (shortness of breath) on exertion Hypertension Qualifiers: Hypertension type: other secondary hypertension Qualified Code(s): I15.8 - Other secondary hypertension - Discharge Dispostion Disposition: HOME Condition at time of disposition: Improved - Referrals Referrals: Oneil Rodriges MD [Primary Care Provider] - - Patient Instructions Printed Discharge Instructions: High Blood Pressure Additional Instructions: FOLLOW UP WITH DR. RODRIGES THIS WEEK AND YOUR [facility] DISCUSSED. RETURN IF SYMPTOMS WORSEN OR ANY CONCERNS FOR FURTHER EVALUATION. Print Language: URDU
[2016-08-19 17:44] VITALS: TEMP 98.7
[2016-08-19 17:52] LABS: BASOPHIL 1.2 % (0-2.0); EOSINOPHIL 8.4 % (0-4.5); MCH 24.3 pg (25.7-33.7); MCHC 31.4 g/dl (32.0-36.0); MEAN CELL VOLUME 77.4 fl (80-96); MEAN PLT VOLUME 8.3 fl (7.5-11.1); NEUTROPHILS 53.8 % (42.8-82.8); PLATELET COUNT 199 K/MM3 (134-434); RDW 16.2 % (11.6-15.6); WHITE BLOOD COUNT 6.9 K/mm3 (4.0-10.0)
[2016-08-19 18:16] LABS: ALBUMIN 3.5 g/dl (3.4-5.0); ANION GAP 7 (8-16); BILIRUBIN,TOTAL 0.8 mg/dL (0.2-1.0); CO2 30 mmol/L (21-32); CREATININE 0.9 mg/dL (0.55-1.02); GLUCOSE,RANDOM 81 mg/dL (74-106); SGOT/AST 17 U/L (15-37); SGPT/ALT 17 U/L (12-78); TOT PROT 7.1 g/dl (6.4-8.2)
[2016-08-19 18:19] LABS: ALK PHOS 78 U/L (45-117); TROPONIN I < 0.02 ng/ml (0.00-0.05)
[2016-08-19] MEDS ORDERED: CARVEDILOL 25 MG TABLET (FP) PO ONE (18:29)
[2016-08-19 19:33] VITALS: BP 164/99; PULSE 70
--- NOTE | 2016-08-21 11:17 | EKG ---
Test Reason : Blood Pressure : / mmHG Vent. Rate : 057 BPM Atrial Rate : 057 BPM P-R Int : 200 ms QRS Dur : 096 ms QT Int : 436 ms P-R-T Axes : 029 -28 000 degrees QTc Int : 424 ms POOR DATA QUALITY, INTERPRETATION MAY BE ADVERSELY AFFECTED SINUS BRADYCARDIA WITH SINUS ARRHYTHMIA INCOMPLETE RIGHT BUNDLE BRANCH BLOCK MINIMAL VOLTAGE CRITERIA FOR LVH, MAY BE NORMAL VARIANT BORDERLINE ECG WHEN COMPARED WITH ECG OF 15-JUN-2016 10:34, NO SIGNIFICANT CHANGE WAS FOUND Confirmed by GRACE BE MD ([id number]) on 08/21/2016 11:17:08 AM Referred By: Confirmed By:GRACE BE MD
== END 2016-08-19 21:19 | disposition home or self-care (01) ==
LOC: JER 16:10
PROC: 3E033GC Introduction of Other Therapeutic Substance into Peripheral Vein, Percutaneous Approach (ICD-10-PCS; principal; 2016-08-19)
DX: I15.8 Other secondary hypertension (principal); R06.02 Shortness of breath
CPT/HCPCS: 36415; 71020-TC; 80053; 82550; 82553; 83880; 84484; 85025; 93005; 93010; 96374; 96375; 99285-25

== ENCOUNTER 2016-09-16 20:42 | Emergency (ER) | payer OTHER ==
[2016-09-16 20:50] VITALS: TEMP 97.8; BMI 41.7
--- NOTE | 2016-09-16 21:19 | PDOC ---
History of Present Illness - General History Source: Patient Exam Limitations: No Limitations - History of Present Illness Initial Comments: 09/16/16 21:28 The patient is a 71-year-old female, with a significant past medical history of HTN and hypercholesterolemia, who presents to the ED with left-sided headache and discomfort under left eye. She denies experiencing any numbness or weakness. She states that her BP fluctuates despite her being compliant with her medications. She is followed by her PCP, cytopathology technologist, and language specialist in order to control her BP. At present patient is not experiencing any chest pain or shortness of breath. Her headache is about the same and the discomfort under her left eye has somewhat improved. The patient denies any fever, chills, nausea, vomiting, diarrhea, or abdominal pain. She denies any dizziness. <Anju Mejia - Last Filed: 09/16/16 23:35> - General History Source: Patient <Sin Tate - Last Filed: 09/17/16 00:34> - General Chief Complaint: Blood Pressure Problem Stated Complaint: BLOOD PRESSURE PROBLEM Time Seen by Provider: 09/16/16 21:19 NIH Stroke Scale - Last Known Well Date/Time & Onset Date Last Known Well: 09/16/16 Time Last Known Well: 21:23 - Initial Evaluation Level of consciousness: Alert Ask patient the month and their age: Answers both correctly Ask patient to open & close eyes; make fist and let go: Obeys both correctly Best gaze (horizontal eye movement): Normal Visual field testing: No visual field loss Facial paresis (Show teeth/raise eyebrows/close eyes tight): Normal symmetrical movement Motor Function: Left Arm: Normal Motor Function: Right Arm: Normal (extends arm 90 (or 45) degrees for 10 seconds without drift Motor Function: Left Leg: Normal (extends leg 30 degrees for 5 seconds without drift) Motor Function: Right Leg: Normal (extends leg 30 degrees for 5 seconds without drift) Limb Ataxia: No ataxia Sensory(Use pinprick test arms,legs,trunk,face/side to side): Normal Best language (Describe picture, name items, read sentences): No Aphasia Dysarthria (read several words): Normal articulation Extinction and Inattention: No abnormality - Total Score NIH Stroke Scale Score: 0 <Sin Tate - Last Filed: 09/17/16 00:34> tPA Exclusion Checklist 0-3hr - Time Elapsed Date last known well: 09/16/16 Time last known well: 21:24 Elaspsed time: Day(s) and 3 Hour(s) and 9 Minutes - Thrombolytic Therapy Candidate Is the patient eligible for Thrombolytic Therapy?: No - Exclusion Criteria 0-3hr SBP greater than 185 or DBP greater than 110mmHg despite tx: No Recent IC/spinal surgery,head trauma or stroke w/in last 3mo: No Hx of previous IC hemorrhage, IC neoplasm, AVM or aneurysm: No Active internal bleeding: No Blding diathesis(low plt ct, inc PTT,INR>1.7 or use of NOAC): No Symptoms suggest subarachnoid hemorrhage: No CT demonstrates multilobar infarct(>1/3 cerebral hemiphere): No Arterial puncture at noncompressible site in previous 7 days: No Blood glucose concentration less than 50mg/dL (2.7mmol/L): No - Relative Exclusion Criteria 0-3h Life expectancy <1yr/severe co-morbid illness/[employer] on admit: No : No Patient/family refused: No Rapid improvement: No Stroke severity too mild: Yes Recent acute [place] (w/in previous 3 months): No Seizure at onset with postictal residual neuro impairments: No Major surgery or serious trauma w/in previous 14 days: No Recent GI or hemorrhage (w/in previous 21 days): No - Ineligibility reason(s) Reasons No tPA given: See reason(s) noted above <Sin Tate - Last Filed: 09/17/16 00:34> Past History <Anju Mejia - Last Filed: 09/16/16 23:35> - Past Medical History Anemia: No Asthma: No Cancer: No GI Disorders: Yes (HIATAL HERNIA) HTN: Yes Hypercholesterolemia: Yes Suicide Attempt (Hx): No - Immunization History Immunization Up to Date: Yes - Psycho/Social/Smoking Cessation Hx Anxiety: No Suicidal Ideation: No Smoking Status: No Smoking History: Never smoked Have you smoked in the past 12 months: No Number of Cigarettes Smoked Daily: 0 Information on smoking cessation initiated: No Hx Alcohol Use: No Drug/Substance Use Hx: No Substance Use Type: None <Sin Tate - Last Filed: 09/17/16 00:34> - Past Medical History Allergies/Adverse Reactions: Allergies Allergy/AdvReac Type Severity Reaction Status Date / Time No Known Allergies Allergy Verified 09/16/16 20:50 Home Medications: Ambulatory Orders Carvedilol 25 mg PO BID 04/27/16 Quinapril HCl [Accupril -] 10 mg PO TID 08/19/16 Rosuvastatin Calcium [Crestor] 10 mg PO DAILY 08/19/16 Review of Systems - Review of Systems Able to Perform ROS?: Yes Comments:: 09/16/16 21:28 CONSTITUTIONAL: Absent: fever, chills, diaphoresis, generalized weakness, malaise, loss of appetite HEENT: Present: left under eye discomfort Absent: rhinorrhea, nasal congestion, throat pain, throat swelling, difficulty swallowing, mouth swelling, ear pain, visual Changes CARDIOVASCULAR: Absent: chest pain, syncope, palpitations, irregular heart rate, lightheadedness , peripheral edema RESPIRATORY: Absent: cough, shortness of breath, dyspnea with exertion, orthopnea, wheezing, stridor, hemoptysis GASTROINTESTINAL: Absent: abdominal pain, abdominal distension, nausea, vomiting, diarrhea, constipation, melena, hematochezia GENITOURINARY: Absent: dysuria, frequency, urgency, hesitancy, hematuria, flank pain, genital pain MUSCULOSKELETAL: Absent: myalgia, arthralgia, joint swelling SKIN: Absent: rash, itching, pallor HEMATOLOGIC/IMMUNOLOGIC: Absent: easy bleeding, easy bruising, lymphadenopathy, frequent infections ENDOCRINE: Absent: unexplained weight gain, unexplained weight loss, heat intolerance, cold intolerance NEUROLOGIC: Present: headache Absent: focal weakness or paresthesias, dizziness, unsteady gait, seizure, mental status changes, bladder or bowel incontinence PSYCHIATRIC: Absent: anxiety, depression, suicidal or homicidal ideation, hallucinations. <Anju Mejia - Last Filed: 09/16/16 23:35> *Physical Exam - Vital Signs Last Vital Signs Temp Pulse Resp BP Pulse Ox 97.8 F 66 17 160/98 99 09/16/16 20:47 09/16/16 20:47 09/16/16 20:47 09/16/16 20:47 09/16/16 20:47 - Physical Exam Comments: 09/16/16 21:29 GENERAL: Well developed, well nourished. Awake and alert. No acute distress. HEENT: Normocephalic, atraumatic. PERRLA, EOMI. No conjunctival pallor. Sclera are non- icteric. Moist mucous membranes. Oropharynx is clear. NECK: Supple. Full ROM. No JVD. Carotid pulses 2+ and symmetric, without bruits. No thyromegaly. No lymphadenopathy. CARDIOVASCULAR: Regular rate and rhythm. No murmurs, rubs, or gallops. Distal pulses are 2+ and symmetric. PULMONARY: No evidence of respiratory distress. Lungs clear to auscultation bilaterally. No wheezing, rales or rhonchi. ABDOMINAL: Soft. Non-tender. Non-distended. No rebound or guarding. No organomegaly. Normoactive bowel sounds. MUSCULOSKELETAL Normal range of motion at all joints. No bony deformities or tenderness. No CVA tenderness. EXTREMITIES: No cyanosis. No clubbing. No edema. No calf tenderness. SKIN: Warm and dry. Normal capillary refill. No rashes. No jaundice. NEUROLOGICAL: Alert, awake, appropriate. PSYCHIATRIC: Cooperative. Good eye contact. Appropriate mood and affect. <Anju Mejia - Last Filed: 09/16/16 23:35> - Vital Signs Last Vital Signs Temp Pulse Resp BP Pulse Ox 97.8 F 66 17 160/98 99 09/16/16 20:47 09/16/16 20:47 09/16/16 20:47 09/16/16 20:47 09/16/16 20:47 <Sin Tate - Last Filed: 09/17/16 00:34> Heart Score/ECG Review - ECG Intrepretation Comment:: 09/16/16 23:35 EKG was reviewed by Dr. Tate at 22:26. Impression: Sinus bradycardia with 1st degree AV block. Left axis deviation. Minimal voltage criteria for LVH, may be normal variant. Vent. rate: 53 bpm SD Interval: 214 ms QTc: 427 ms <Anju Mejia - Last Filed: 09/16/16 23:35> ED Treatment Course - LABORATORY CBC & Chemistry Diagram: 09/16/16 22:30 09/16/16 22:30 <Sin Tate - Last Filed: 09/17/16 00:34> Medical Decision Making - Medical Decision Making 09/17/16 00:30 Dr. Sinisterra: The scribe's documentation has been prepared under my direction and personally reviewed by me in its entirery. I confirm that the note above accurately reflects all work, treatment, procedures, and medical decision making performed by me. Blood pressure has improved. CAT scan of brain is negative for any pathology. We will discharge to follow-up with her pcp. Advised ot continue her medications <Sin Tate - Last Filed: 09/17/16 00:34> *DC/Admit/Observation/Transfer - Attestations Scribe Attestion: 09/16/16 21:30 Documentation prepared by Anju Mejia, acting as adjunct faculty for medical terminology for Sin Tate MD. <Anju Mejia - Last Filed: 09/16/16 23:35> - Discharge Dispostion Admit: No <Sin Tate - Last Filed: 09/17/16 00:34> Diagnosis at time of Disposition: Headache Hypertension Qualifiers: Hypertension type: essential hypertension Qualified Code(s): I10 - Essential ( primary) hypertension - Discharge Dispostion Disposition: HOME Condition at time of disposition: Stable - Referrals Referrals: Oneil Prasad MD [Primary Care Provider] - - Patient Instructions Printed Discharge Instructions: DI for High Blood Pressure, How to Monitor Your Blood Pressure at Home Additional Instructions: Please follow up with your primary care for further evaluation as needed. continue your current blood pressure medication. Periodically take Tylenol or Motrin pain
[2016-09-16 23:41] LABS: BASOPHIL 0.7 % (0-2.0); EOSINOPHIL 8.9 % (0-4.5); MCH 24.3 pg (25.7-33.7); MCHC 31.5 g/dl (32.0-36.0); MEAN CELL VOLUME 77.2 fl (80-96); MEAN PLT VOLUME 8.9 fl (7.5-11.1); NEUTROPHILS 48.7 % (42.8-82.8); PLATELET COUNT 210 K/MM3 (134-434); RDW 15.5 % (11.6-15.6); WHITE BLOOD COUNT 8.1 K/mm3 (4.0-10.0)
[2016-09-16 23:54] LABS: INR 1.04 (0.82-1.09); PROTHROMBIN TIME (PATIENT) 11.5 SEC (9.98-11.88)
[2016-09-17 00:04] LABS: ALBUMIN 3.7 g/dl (3.4-5.0); ANION GAP 9 (8-16); BILIRUBIN,TOTAL 0.6 mg/dL (0.2-1.0); CALCIUM 9.1 mg/dL (8.5-10.1); CO2 30 mmol/L (21-32); CREATININE 1.6 mg/dL (0.55-1.02); GLUCOSE,RANDOM 101 mg/dL (74-106); SGOT/AST 21 U/L (15-37); SGPT/ALT 20 U/L (12-78); TOT PROT 7.3 g/dl (6.4-8.2)
[2016-09-17 00:06] LABS: ALK PHOS 83 U/L (45-117); TROPONIN I < 0.02 ng/ml (0.00-0.05)
[2016-09-17 00:27] VITALS: BP 148/97; PULSE 83
--- NOTE | 2016-09-17 12:58 | EKG ---
Test Reason : Blood Pressure : / mmHG Vent. Rate : 052 BPM Atrial Rate : 052 BPM P-R Int : 214 ms QRS Dur : 102 ms QT Int : 460 ms P-R-T Axes : 059 -30 006 degrees QTc Int : 427 ms SINUS BRADYCARDIA WITH 1ST DEGREE A-V BLOCK LEFT AXIS DEVIATION MINIMAL VOLTAGE CRITERIA FOR LVH, MAY BE NORMAL VARIANT ABNORMAL ECG WHEN COMPARED WITH ECG OF 19-AUG-2016 17:16, NO SIGNIFICANT CHANGE WAS FOUND Confirmed by WADE NICKERSON MD ([id number]) on 09/17/2016 12:58:35 PM Referred By: Confirmed By:WADE NICKERSON MD
== END 2016-09-17 00:46 | disposition home or self-care (01) ==
LOC: JER 20:42
DX: I10 Essential (primary) hypertension (principal); E78.00 Pure hypercholesterolemia, unspecified; R00.1 Bradycardia, unspecified
CPT/HCPCS: 70450-TC; 80053; 82550; 82553; 84484; 85025; 85610; 93005; 93010; 99282-25

== ENCOUNTER 2017-03-12 05:10 | Emergency (ER) | payer OTHER ==
[2017-03-12 05:36] VITALS: BMI 40.9
[2017-03-12] MEDS ORDERED: ACETAMINOPHEN 1000 MG/100 ML VIAL (NON FORMULARY) IVPB ONE (06:13)
--- NOTE | 2017-03-12 06:13 | PDOC ---
Attending Attestation - [facility] HPI: 03/12/17 06:28 The patient is a 71 year old female, with a significant past medical history of CAD, htn, hld, who presents to the emergency department with 2 weeks of cough which has been progressively worse over the past few days, The patient also reports diffuse body aches, subjective fevers, chills, nausea, and vomiting. She denies sick contacts. She denies chest pain, shortness of breath, headache and dizziness. She denies diarrhea and constipation. She denies dysuria, frequency, urgency and hematuria. Allergies: NKDA PCP: Dr. Prasad - Physicial Exam PE: 03/12/17 06:16 GENERAL: (+) febrile. ill-appearing. In mild distress. Awake and alert. Obese. HEENT: (+) edentulous on bottom. Normocephalic, atraumatic. PERRLA, EOMI. No conjunctival pallor. Sclera are non-icteric. Moist mucous membranes. Oropharynx is clear. NECK: Supple. Full ROM. No JVD. Carotid pulses 2+ and symmetric, without bruits. No thyromegaly. No lymphadenopathy. CARDIOVASCULAR: Regular rate and rhythm. No murmurs, rubs, or gallops. Distal pulses are 2+ and symmetric. PULMONARY: No evidence of respiratory distress. Lungs clear to auscultation bilaterally. No wheezing, rales or rhonchi. ABDOMINAL: Soft. Non-tender. Non-distended. No rebound or guarding. No organomegaly. Normoactive bowel sounds. MUSCULOSKELETAL No active vomiting. Normal range of motion at all joints. No bony deformities or tenderness. No CVA tenderness. EXTREMITIES: No cyanosis. No clubbing. No edema. No calf tenderness. SKIN: Warm and dry. Normal capillary refill. No rashes. No jaundice. NEUROLOGICAL: Alert, awake, appropriate. Cranial nerves 2-12 intact. Normoreflexic in the upper and lower extremities. Normal speech. Toes are down-going bilaterally. Gait is normal without ataxia. PSYCHIATRIC: Cooperative. Good eye contact. Appropriate mood and affect. __ Documentation prepared by Pretty Cui, acting as electromedical equipment technician for Sin Tate DO. <Pretty Cui - Last Filed: 03/12/17 06:28> - Resident Resident Name: She Muñoz - ED Attending Attestation I have performed the following: I have examined & evaluated the patient, The case was reviewed & discussed with the resident, I agree w/resident's findings & plan, Exceptions are as noted - Medical Decision Making 03/12/17 20:34 Pt treated and released <Sin Tate - Last Filed: 03/12/17 20:34>
[2017-03-12] MEDS ORDERED: SODIUM CHLORIDE 0.9% 1000 ML INFUS.BAG IV ONE (06:14)
[2017-03-12] MEDS ORDERED: ONDANSETRON 4 MG/2 ML VIAL IVPUSH ONE (06:20)
--- NOTE | 2017-03-12 06:41 | PDOC ---
History of Present Illness - General Chief Complaint: Pain, Acute Stated Complaint: ABD PAIN,COUGHING,ACHES Time Seen by Provider: 03/12/17 06:00 History Source: Patient Exam Limitations: No Limitations - History of Present Illness Initial Comments: This is a 71 YOF with h/o CHF, HTN, and HLD who p/w vomiting, diarrhea, body aches, cough productive of yellow sputum, generalized weakness, and malaise worsening for the past two days. She has not been able to keep down anything she eats or drinks (including water and tea). She additionally notes right- sided chest pain yesterday night but none currently. She has not tried any medications for her symptoms. She expresses concern that if she has influenza or another infectious cause, she does not want to pass this to her daughter who has cerebral palsy and whom she has to care for. She denies any current or recent chest pain, SOB, rash, leg swelling, or other symptoms. Past History - Past Medical History Allergies/Adverse Reactions: Allergies Allergy/AdvReac Type Severity Reaction Status Date / Time No Known Allergies Allergy Verified 03/12/17 05:33 Home Medications: Ambulatory Orders Carvedilol 25 mg PO BID 04/27/16 Quinapril HCl [Accupril -] 10 mg PO TID 08/19/16 Rosuvastatin Calcium [Crestor] 10 mg PO DAILY 08/19/16 Anemia: No Asthma: No Cancer: No GI Disorders: Yes (HIATAL HERNIA) HTN: Yes Hypercholesterolemia: Yes - Immunization History Immunization Up to Date: Yes - Suicide/Smoking/Psychosocial Hx Smoking Status: No Smoking History: Never smoked Have you smoked in the past 12 months: No Number of Cigarettes Smoked Daily: 0 Information on smoking cessation initiated: No Hx Alcohol Use: No Drug/Substance Use Hx: No Substance Use Type: None Review of Systems - Review of Systems Able to Perform ROS?: Yes Constitutional: Yes: Chills, Fever, Malaise, Weakness. No: Unexplained wgt Loss HEENTM: Yes: Nose Congestion. No: Throat Pain Respiratory: Yes: Cough, Productive cough. No: Shortness of Breath Cardiac (ROS): Yes: Chest Pain (last night). No: Edema, Lightheadedness, Palpitations ABD/GI: Yes: Diarrhea, Nausea, Vomiting. No: Constipated : No: Burning, Dysuria Musculoskeletal: No: Back Pain, Neck Pain Integumentary: No: Bruising, Rash Neurological: No: Headache, Numbness, Tingling, Weakness, Dizziness Endocrine: No: Unexplained Weight Gain, Unexplained Weight Loss *Physical Exam - Vital Signs Last Vital Signs Temp Pulse Resp BP Pulse Ox 100.0 F H 90 20 136/73 98 03/12/17 05:33 03/12/17 05:33 03/12/17 05:33 03/12/17 05:03/12/17 05:33 - Physical Exam General Appearance: Yes: Nourished, Appropriately Dressed, Mild Distress, Obese , Other (uncomfortable appearing older adult female who is laying on her side but sits up to talk with examiner, answers questions appropriately) HEENT: positive: EOMI, CONSTANTINO, Normal Voice, Pharynx Normal, Nasal Congestion, Hearing Grossly Normal, Other (mostly edentulous). negative: Scleral Icterus (R ), Scleral Icterus (L) Neck: positive: Trachea midline, Supple. negative: Tender, Rigid, Decreased range of motion, Rigidity Respiratory/Chest: positive: Lungs Clear, Normal Breath Sounds. negative: Chest Tender, Respiratory Distress, Crackles, Rhonchi, Stridor, Wheezing Cardiovascular: positive: Regular Rhythm, Regular Rate, Systolic Murmur (2/6). negative: Edema, JVD, Murmur Gastrointestinal/Abdominal: positive: Normal Bowel Sounds, Soft. negative: Tender, Organomegaly, Pulsatile Mass, Guarding Musculoskeletal: positive: Normal Inspection. negative: Decreased Range of Motion, Vertebral Tenderness Extremity: positive: Normal Capillary Refill, Normal Inspection, Normal Range of Motion. negative: Tender, Cyanosis Integumentary: positive: Normal Color, Dry, Warm. negative: Erythema, Rash, Bruising Neurologic: positive: diesel engine erector II-XII NML intact, Fully Oriented, Alert, Normal Mood/ Affect, Normal Response, Motor Strength 5/5 Heart Score/ECG Review - History History: Slightly suspicious - Age Age: >/= 65 - Risk Factors Risk Factors Heart Score: Yes Hx Hypercholesterolemia, Yes Hx Hypertension, Yes Hx Obesity Based on the list above the patient has:: >/=3 risk factors or Hx atherosclerotic disease ED Treatment Course - RADIOLOGY Radiology Studies Ordered: Category Date Time Status CHEST PA & LAT [RAD] Stat Radiology 03/12/17 06:03 Ordered *DC/Admit/Observation/Transfer - Referrals Referrals: Oneil Prasad MD [Primary Care Provider] - - Patient Instructions - Post Discharge Activity
[2017-03-12 08:01] LABS: BASO % 0.7 % (0-2.0); EOS % 4.2 % (0-4.5); HEMATOCRIT 35.9 % (32.4-45.2); HEMOGLOBIN 11.2 GM/dL (10.7-15.3); LYMPH % 10.9 % (8-40); MCH 24.2 pg (25.7-33.7); MCHC 31.2 g/dl (32.0-36.0); MEAN CELL VOLUME 77.4 fl (80-96); MEAN PLT VOLUME 8.3 fl (7.5-11.1); MONO % 9.6 % (3.8-10.2); NEUT % 74.6 % (42.8-82.8); PLATELET COUNT 192 K/MM3 (134-434); RBC 4.64 M/mm3 (3.60-5.2); RDW 15.6 % (11.6-15.6); WHITE BLOOD COUNT 9.5 K/mm3 (4.0-10.0)
[2017-03-12 08:12] LABS: ALBUMIN 3.5 g/dl (3.4-5.0); ANION GAP 6 (8-16); BILIRUBIN,TOTAL 0.7 mg/dL (0.2-1.0); BLOOD UREA NITROGEN 21 mg/dL (7-18); CALCIUM 8.4 mg/dL (8.5-10.1); CHLORIDE 102 mmol/L (98-107); CO2 30 mmol/L (21-32); CREATININE 1.3 mg/dL (0.55-1.02); GLUCOSE,RANDOM 114 mg/dL (74-106); POTASSIUM 3.8 mmol/L (3.5-5.1); SGOT/AST 14 U/L (15-37); SGPT/ALT 17 U/L (12-78); SODIUM 138 mmol/L (136-145); TOT PROT 7.4 g/dl (6.4-8.2)
[2017-03-12 08:15] LABS: ALK PHOS 78 U/L (45-117); N-TERMINAL BNP 254.26 pg/ml (5-125)
--- NOTE | 2017-03-12 08:23 | PDOC ---
*Physical Exam - Vital Signs Last Vital Signs Temp Pulse Resp BP Pulse Ox 100.0 F H 90 20 136/73 98 03/12/17 05:33 03/12/17 05:33 03/12/17 05:33 03/12/17 05:33 03/12/17 05:33 - Physical Exam General Appearance: Yes: Nourished, Appropriately Dressed HEENT: positive: CONSTANTINO. negative: Tonsillar Exudate, Tonsillar Erythema, Nasal Congestion, Sinus Tenderness, TM Dull, TM Erythema Neck: positive: Trachea midline, Supple Respiratory/Chest: positive: Lungs Clear Cardiovascular: positive: S1, S2 Gastrointestinal/Abdominal: positive: Normal Bowel Sounds. negative: Distended , Guarding, Rebound, Tenderness, Hernia, Mass Extremity: positive: Normal Capillary Refill, Normal Inspection Integumentary: positive: Normal Color, Dry, Warm Neurologic: positive: Fully Oriented, Alert ED Treatment Course - LABORATORY CBC & Chemistry Diagram: 03/12/17 07:32 03/12/17 07:32 - ADDITIONAL ORDERS Additional order review: Laboratory Results 03/12/17 07:32 Sodium 138 Potassium 3.8 Chloride 102 Carbon Dioxide 30 Anion Gap 6 L BUN 21 H Creatinine 1.3 H Creat Clearance w eGFR 40.49 Random Glucose 114 H Calcium 8.4 L Total Bilirubin 0.7 AST 14 L ALT 17 Total Protein 7.4 Albumin 3.5 03/12/17 07:12 Influenza Types A,B Antigen (MARSHAL) - Preliminary Nasopharyngeal Swab - Preliminary 03/12/17 07:32 RBC 4.64 MCV 77.4 L MCHC 31.2 L RDW 15.6 MPV 8.3 Neutrophils % 74.6 D Lymphocytes % 10.9 D Monocytes % 9.6 Eosinophils % 4.2 Basophils % 0.7 - Medications Given in the ED: ED Medications Discontinued Medications Generic Name Dose Route Start Last Admin Trade Name Freq PRN Reason Stop Dose Admin Acetaminophen 1,000 mg 03/12/17 06:13 03/12/17 07:31 Ofirmev Injection - IVPB 03/12/17 06:14 1,000 mg ONCE ONE Administration Ondansetron HCl 4 mg 03/12/17 06:20 03/12/17 07:31 Zofran Injection IVPUSH 03/12/17 06:21 4 mg NOW ONE Administration Sodium Chloride 500 ml 03/12/17 06:14 03/12/17 07:31 Normal Saline - IV 03/12/17 06:15 500 ml ONCE ONE Administration Medical Decision Making - Medical Decision Making 03/12/17 08:23 Patient signed out by Dr. Muñoz (Resident) under the care of Dr. Tate ( Attending). Patient is a 71 y.o. female who presents with Viral URI symptoms. Influenza A positive. Febrile @ 100 degrees F --> Tylenol. 03/12/17 10:28 Patient counseled extensively on risks/benefits of Tamiflu. Given OTD in ED with outpatient prescription. Successful PO challenge. Patient to be discharged home with return precautions, instructions for supportive care and alternating Tylenol/Motrin for fevers. At time of discharge patient ambulatory , tolerating PO intake, improved and understands her discharge instructions. *DC/Admit/Observation/Transfer Diagnosis at time of Disposition: Influenza - Discharge Dispostion Disposition: HOME Condition at time of disposition: Good Admit: No - Prescriptions Prescriptions: Oseltamivir Phosphate [Tamiflu] 75 mg PO BID #20 capsule - Referrals Referrals: Oneil Prasad MD [Primary Care Provider] - - Patient Instructions Printed Discharge Instructions: DI for Influenza -- Adult Additional Instructions: Please increase fluid intake (2-3 L daily) and wash your hands often. A prescription has been called to your pharmacy. Please complete the entire antibiotic course. You can take Tylenol or Motrin for fevers and/or body aches. Please return to the ED for any new/worsening/concerning symptoms. - Post Discharge Activity
[2017-03-12] MEDS ORDERED: OSELTAMIVIR PHOSPHATE 75 MG CAPSULE PO ONE (08:24)
[2017-03-12] MEDS ORDERED: OSELTAMIVIR PHOSPHATE 75 MG CAPSULE ONE (08:31)
[2017-03-12 11:07] VITALS: BP 115/74; PULSE 73; TEMP 97.8
--- NOTE | 2017-03-12 12:31 | EKG ---
Test Reason : Blood Pressure : / mmHG Vent. Rate : 081 BPM Atrial Rate : 081 BPM P-R Int : 194 ms QRS Dur : 108 ms QT Int : 400 ms P-R-T Axes : 056 -20 056 degrees QTc Int : 464 ms POOR DATA QUALITY, INTERPRETATION MAY BE ADVERSELY AFFECTED NORMAL SINUS RHYTHM SEPTAL INFARCT , AGE UNDETERMINED ABNORMAL ECG WHEN COMPARED WITH ECG OF 16-SEP-2016 22:26, VENT. RATE HAS INCREASED BY 29 BPM SEPTAL INFARCT IS NOW PRESENT Confirmed by GRACE BE MD ([id number]) on 03/12/2017 12:30:42 PM Referred By: Confirmed By:GRACE BE MD
== END 2017-03-12 11:38 | disposition home or self-care (01) ==
LOC: JER 05:10
PROC: 3E033GC Introduction of Other Therapeutic Substance into Peripheral Vein, Percutaneous Approach (ICD-10-PCS; principal; 2017-03-12)
PROC: 3E033NZ Introduction of Analgesics, Hypnotics, Sedatives into Peripheral Vein, Percutaneous Approach (ICD-10-PCS; 2017-03-12)
DX: J09.X2 Influenza due to identified novel influenza A virus with other respiratory manifestations (principal); I10 Essential (primary) hypertension; E78.00 Pure hypercholesterolemia, unspecified
CPT/HCPCS: 36415; 71046-TC; 80053; 82550; 82553; 83880; 84484; 85025; 87804; 93005; 93010; 99283-25

== ENCOUNTER 2017-03-18 20:49 | Emergency (ER) | payer OTHER ==
--- NOTE | 2017-03-18 21:56 | PDOC ---
Rapid Medical Evaluation Time Seen by Provider: 03/18/17 21:53 Medical Evaluation: Allergies Allergy/AdvReac Type Severity Reaction Status Date / Time No Known Allergies Allergy Verified 03/12/17 05:33 I have performed a brief in-person evaluation of this patient. The patient presents with a chief complaint of: productive cough x 2 weeks. no fever. was treated for flu last Pertinent physical exam findings: none. no cough in triage I have ordered the following: none The patient will proceed to the ED for further evaluation.
[2017-03-18 21:58] VITALS: BP 140/90; PULSE 75; BMI 40.9
--- NOTE | 2017-03-18 23:07 | PDOC ---
History of Present Illness - General Chief Complaint: Cold Symptoms Stated Complaint: FATIGUE Time Seen by Provider: 03/18/17 21:53 History Source: Patient - History of Present Illness Initial Comments: 03/18/17 23:02 patient has had a persistent cough beginning of the year. Patient was recently treated with Tamiflu, for which she Completed the course. However, patient state cough is now green sputum. Patient has attempted to see her primary care physician, but has not been able to. Denies fever. Past History - Past Medical History Allergies/Adverse Reactions: Allergies Allergy/AdvReac Type Severity Reaction Status Date / Time No Known Allergies Allergy Verified 03/12/17 05:33 Home Medications: Ambulatory Orders Carvedilol 25 mg PO BID 04/27/16 Quinapril HCl [Accupril -] 10 mg PO TID 08/19/16 Rosuvastatin Calcium [Crestor] 10 mg PO DAILY 08/19/16 Guaifenesin AC [Robitussin AC -] 5 ml PO TID #60 liquid MDD 20ml 03/18/17 Ondansetron [Zofran *Odt*] 4 mg SL TID #30 od.tablet 03/18/17 Anemia: No Asthma: No Cancer: No COPD: No GI Disorders: Yes (HIATAL HERNIA) HTN: Yes Hypercholesterolemia: Yes - Immunization History Immunization Up to Date: Yes - Suicide/Smoking/Psychosocial Hx Smoking Status: No Smoking History: Never smoked Have you smoked in the past 12 months: No Number of Cigarettes Smoked Daily: 0 Hx Alcohol Use: No Drug/Substance Use Hx: No Substance Use Type: None Review of Systems - Review of Systems Constitutional: Yes: Symptoms Reported, See HPI. No: Chills, Diaphoresis, Fever , Loss of Appetite, Malaise, Weight Stable HEENTM: Yes: Symptoms Reported, See HPI. No: Eye Pain (all), Blurred Vision, Tearing, Recent change in vision, Double Vision, Cataracts, Ear Pain, Ocular Prothesis, Ear Discharge, Nose Pain, Nose Congestion, Tinnitus Respiratory: Yes: Symptoms reported, See HPI, Cough, Shortness of Breath, Productive cough Cardiac (ROS): Yes: Symptoms Reported, See HPI. No: Chest Pain, Edema, Irregular Heart Rate, Lightheadedness (with), Palpitations, Syncope, Chest Tightness, Other ABD/GI: Yes: Symptoms Reported, See HPI. No: Abdominal Distended, Blood Streaked Bowels, Constipated, Difficulty Swallowing, Nausea, Poor Appetite, Poor Fluid Intake, Rectal Bleeding, Abdominal cramping : Yes: Symptoms Reported, See HPI. No: Burning, Dysuria, Discharge, Urgency, Testicular Mass, Testicular Swelling, Other Musculoskeletal: Yes: Symptoms Reported, See HPI. No: Back Pain, Gout, Joint Pain, Joint Swelling, Neck Pain Integumentary: Yes: Symptoms Reported, See HPI. No: Bruising, Change in Color, Lesions, Lumps Neurological: Yes: Symptoms reported, See HPI. No: Headache, Numbness, Paresthesia Psychiatric: No: Anxiety, Depression, Frequent Crying, Stressors, Sleep Pattern Change Endocrine: Yes: Symptoms Reported, See HPI. No: Excessive Sweating, Flushing, Intolerance to Cold, Increased Hunger, Increased Thirst Hematologic/Lymphatic: Yes: Symptoms Reported, See HPI. No: Anemia, Blood Clots , Easy Bleeding, Lymph Node Abnormalities (he) *Physical Exam - Vital Signs Last Vital Signs Temp Pulse Resp BP Pulse Ox 75 140/90 100 03/18/17 21:54 03/18/17 21:54 03/18/17 21:54 - Physical Exam General Appearance: Yes: Nourished, Appropriately Dressed HEENT: positive: EOMI, CONSTANTINO, Normal ENT Inspection, Normal Voice, TMs Normal, Pharynx Normal, Pale Conjunctivae. negative: Photophobia, Scleral Icterus (R), Scleral Icterus (L), Muffled/Hoarse voice, Pharyngeal Erythema, Tonsillar Exudate, Tonsillar Erythema Neck: positive: Tender, Trachea midline, Normal Thyroid, Supple. negative: Rigid, Carotid bruit, Decreased range of motion, Stridor, Lymphadenopathy (R) Respiratory/Chest: positive: Respiratory Distress, Decreased Breath Sounds, Rhonchi. negative: Chest Tender Cardiovascular: positive: Regular Rhythm, Regular Rate, S1, S2. negative: Edema , JVD, Murmur, Bradycardia, Tachycardia, Gallop/S3 Gastrointestinal/Abdominal: positive: Normal Bowel Sounds, Flat, Soft Musculoskeletal: positive: Normal Inspection. negative: CVA Tenderness Extremity: positive: Normal Capillary Refill, Normal Inspection, Normal Range of Motion Integumentary: positive: Normal Color, Dry, Warm. 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 negative: Abnormal Cranial NS, Respond to painful stimul, EOM Palsy ED Treatment Course - RADIOLOGY Radiology Studies Ordered: Category Date Time Status CHEST PA & LAT [RAD] Stat Radiology 03/18/17 23:00 Ordered Medical Decision Making - Medical Decision Making 03/18/17 23:47 Dr. Tate: The scribe's documentation has been prepared under my direction and personally reviewed by me in its entirery. I confirm that the note above accurately reflects all work, treatment, procedures, and medical decision making performed by me. *DC/Admit/Observation/Transfer Diagnosis at time of Disposition: Cough, Bronchitis - Discharge Dispostion Disposition: HOME Condition at time of disposition: Stable Admit: No - Prescriptions Prescriptions: Guaifenesin AC [Robitussin AC -] 5 ml PO TID #60 liquid MDD 20ml Ondansetron [Zofran *Odt*] 4 mg SL TID #30 od.tablet - Referrals Referrals: Oneil Prasad MD [Primary Care Provider] - - Patient Instructions Printed Discharge Instructions: DI for Acute Bronchitis, DI for Cough -- Adult Additional Instructions: Take medications as directed. Take cough medication when you needed. Follow up with your doctor by Thursday. - Post Discharge Activity
[2017-03-18] MEDS ORDERED: ALBUTEROL SO4 2.5/IPRATROPIUM 0.5 INH SOL 3 ML VIAL.NEB. NEB ONE (23:15)
[2017-03-18] MEDS ORDERED: guaiFENesin/CODEINE 10 ML UNIT-DOSE CUPS PO ONE (23:42)
[2017-03-18] MEDS ORDERED: AZITHROMYCIN 250 MG TABLET PO STA (23:42)
== END 2017-03-19 | disposition home or self-care (01) ==
LOC: JER 20:49 → JERFT 20:49 → JER 03-19
PROC: 3E0F7GC Introduction of Other Therapeutic Substance into Respiratory Tract, Via Natural or Artificial Opening (ICD-10-PCS; principal; 2017-03-18)
DX: J04.0 Acute laryngitis (principal); R05 Cough
CPT/HCPCS: 71046-TC; 99281-25

== ENCOUNTER 2017-03-20 09:53 | Emergency (ER) | payer OTHER ==
[2017-03-20 09:58] VITALS: BP 138/71; PULSE 73; TEMP 99.4; BMI 40.9
[2017-03-20] MEDS ORDERED: NAPROXEN 500 MG TABLET (FP) PO ONE (11:20)
[2017-03-20] MEDS ORDERED: NAPROXEN 500 MG TABLET (FP) ONE (11:28)
--- NOTE | 2017-03-20 11:28 | PDOC ---
History of Present Illness - General Chief Complaint: Injury Stated Complaint: ANKLE INJURY Time Seen by Provider: 03/20/17 10:45 History Source: Patient Exam Limitations: No Limitations - History of Present Illness Initial Comments: 03/20/17 11:24 71 yr female with right ankle pain after she twisted it during the night walking to the bathroom. 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 pt states pain is worse with ambulation. Past History - Past Medical History Allergies/Adverse Reactions: Allergies Allergy/AdvReac Type Severity Reaction Status Date / Time No Known Allergies Allergy Verified 03/18/17 23:52 Home Medications: Ambulatory Orders Carvedilol 25 mg PO BID 04/27/16 Quinapril HCl [Accupril -] 10 mg PO TID 08/19/16 Rosuvastatin Calcium [Crestor] 10 mg PO DAILY 08/19/16 Anemia: No Asthma: No Cancer: No COPD: No GI Disorders: Yes (HIATAL HERNIA) HTN: Yes Hypercholesterolemia: Yes Other medical history: denies any gout history - Immunization History Immunization Up to Date: Yes - Suicide/Smoking/Psychosocial Hx Smoking Status: No Smoking History: Never smoked Have you smoked in the past 12 months: No Number of Cigarettes Smoked Daily: 0 Information on smoking cessation initiated: No Hx Alcohol Use: No Drug/Substance Use Hx: No Substance Use Type: None *Physical Exam - Vital Signs Last Vital Signs Temp Pulse Resp BP Pulse Ox 99.4 F 73 20 138/71 99 03/20/17 09:56 03/20/17 09:56 03/20/17 09:56 03/20/17 09:56 03/20/17 09:56 - Physical Exam General Appearance: Yes: Nourished, Appropriately Dressed HEENT: positive: EOMI, CONSTANTINO Musculoskeletal: positive: Normal Inspection Extremity: positive: Normal Capillary Refill, Normal Inspection, Normal Range of Motion, Tender, Swelling (lateral maleolus right ankle , nv intact warm and pink ) Integumentary: positive: Normal Color, Dry, Warm. negative: Pale Neurologic: positive: Fully Oriented, Alert, Normal Mood/Affect, Normal Response , Motor Strength 5/5 Procedures - Splinting Pre-Made Type: aircast ED Treatment Course - RADIOLOGY Radiology Studies Ordered: Category Date Time Status ANKLE & FOOT-RIGHT* [RAD] Stat Radiology 03/20/17 10:43 Taken Progress Note - Progress Note Progress Note: right ankle pain after twisting ankle walking to the bathroom. pt did not fall pt states this was at 10pm last nigh no pain meds taken, pt woke up and was unable to bear weight due to pain. Medical Decision Making - Medical Decision Making 03/20/17 11:41 cc: twisted right ankle will give naprosyn and xray r/o fracture air cast splint placed and dc inst given to pt and her son who understand the dc plan of care. all questions asked and answered. *DC/Admit/Observation/Transfer Diagnosis at time of Disposition: Ankle sprain Qualifiers: Encounter type: initial encounter Involved ligament of ankle: unspecified ligament Laterality: right Qualified Code(s): S93.401A - Sprain of unspecified ligament of right ankle, initial encounter - Discharge Dispostion Disposition: HOME Condition at time of disposition: Good - Referrals Referrals: Jorge Galeano MD [Staff Physician] - - Patient Instructions Additional Instructions: elevate the ankle and apply ice every 2hrs for 20 minutes for the next 2 days while awake take naprosyn every 12hrs for pain as needed use the splint while awake remove to sleep and bathe follow with the orthopedist for follow up next week - Post Discharge Activity
== END 2017-03-20 11:41 | disposition home or self-care (01) ==
LOC: JERFT 09:53
PROC: 2W3QX1Z Immobilization of Right Lower Leg using Splint (ICD-10-PCS; principal; 2017-03-20)
DX: S93.401A Sprain of unspecified ligament of right ankle, initial encounter (principal); X58.XXXA Exposure to other specified factors, initial encounter; Y93.89 Activity, other specified; Y92.9 Unspecified place or not applicable
CPT/HCPCS: 29515; 73610-TC-RT; 73630-TC-RT; 99281-25

== ENCOUNTER 2017-12-23 16:42 | Emergency (ER) | payer OTHER ==
--- NOTE | 2017-12-23 16:45 | PDOC ---
Rapid Medical Evaluation Chief Complaint: Chest Pain Time Seen by Provider: 12/23/17 16:44 Medical Evaluation: Allergies Allergy/AdvReac Type Severity Reaction Status Date / Time No Known Allergies Allergy Verified 05/18/17 18:52 12/23/17 16:45 I have performed a brief in-person evaluation of this patient. The patient presents with a chief complaint of: right shoulder and chest pressure since yesterday . Has changed HTN medications over past few weeks. Pertinent physical exam findings: well. ambulatory, some palpitations I have ordered the following: EKG, CBC, CMP, BNP, CardiacProfile The patient will proceed to the ED for further evaluation. 12/23/17 16:45 12/23/17 16:49 12/23/17 16:49
[2017-12-23 17:00] VITALS: BMI 40.9
--- NOTE | 2017-12-23 17:59 | PDOC ---
History of Present Illness - General Chief Complaint: Chest Pain Stated Complaint: CHEST PAIN Time Seen by Provider: 12/23/17 16:44 History Source: Patient Exam Limitations: No Limitations - History of Present Illness Initial Comments: Pt presenting with complaints of R-sided chest pain since 10:30 am this morning and pain in her back between her shoulder blades since 7pm. Pt states the pain is non-exertional, is not associated with new exercise/lifting, and is not associated with nausea/vomiting. Pt denies any fevers/chills, headache, vision changes, SOB, nausea/vomiting, abdominal pain, diarrhea, or leg swelling. She has also been constipated and "straining" with BMs x2 weeks. Pt has PMH of HTN and HLD, and has not been taking her medications as prescribed in over 6 months, as her atorvastatin made her "not have energy" and her HTN medication could not be paid for by insurance. Pt has been taking her old HTN medication instead (amlodipine/valsartan 5mg/160 mg Qday, and Carvedilol 25 mg PO BID), and has stopped the atorvastatin completely. Pt denies alcohol, cigarette and other drug use. Pt denies recent travel and other sick contacts. 12/23/17 19:27 Past History - Travel Traveled outside of the country in the last 30 days: No Close contact w/someone who was outside of country & ill: No - Past Medical History Allergies/Adverse Reactions: Allergies Allergy/AdvReac Type Severity Reaction Status Date / Time No Known Allergies Allergy Verified 05/18/17 18:52 Home Medications: Ambulatory Orders Carvedilol 25 mg PO BID 04/27/16 Rosuvastatin Calcium [Crestor] 10 mg PO DAILY 08/19/16 Amlodipine Besylate/Valsartan [Amlodipine-Valsartan 5-160 mg] 1 each PO DAILY Aspirin [[place] Aspirin] 2 tab PO ONCE 12/23/17 Azilsartan Med/Chlorthalidone [Edarbyclor 40-25 mg Tablet] 1 each PO ASDIR 12/23 Anemia: No Asthma: No Cancer: No COPD: No GI Disorders: Yes (HIATAL HERNIA) HTN: Yes Hypercholesterolemia: Yes - Immunization History Immunization Up to Date: Yes - Suicide/Smoking/Psychosocial Hx Smoking Status: No Smoking History: Never smoked Have you smoked in the past 12 months: No Number of Cigarettes Smoked Daily: 0 Hx Alcohol Use: No Drug/Substance Use Hx: No Substance Use Type: None Review of Systems - Review of Systems Able to Perform ROS?: Yes Is the patient limited Hebrew proficient: No Constitutional: Yes: Weight Stable. No: Chills, Diaphoresis, Fever, Loss of Appetite, Weakness HEENTM: No: Blurred Vision, Recent change in vision, Double Vision, Nose Congestion, Hearing Loss, Difficulty Swallowing Respiratory: No: Cough, Orthopnea, Shortness of Breath Cardiac (ROS): Yes: Chest Pain. No: Edema, Irregular Heart Rate, Lightheadedness, Palpitations, Syncope, Chest Tightness ABD/GI: Yes: Constipated. No: Diarrhea, Nausea, Poor Appetite, Poor Fluid Intake, Rectal Bleeding, Vomiting, Abdominal cramping : No: Burning, Dysuria, Frequency, Hematuria, Pain Musculoskeletal: Yes: Back Pain. No: Joint Pain, Neck Pain Integumentary: No: Bruising, Rash Neurological: No: Headache, Numbness, Seizure, Weakness, Unsteady Gait, Ataxia, Dizziness Psychiatric: Yes: Stressors (has daughter at home with severe disabilities). No : Sleep Pattern Change, Change in Appetite Endocrine: No: Increased Urine, Change in Weight Hematologic/Lymphatic: No: Anemia, Blood Clots, Easy Bleeding, Easy Bruising All Other Systems: Reviewed and Negative *Physical Exam - Vital Signs Last Vital Signs Temp Pulse Resp BP Pulse Ox 98 F 72 18 183/79 H 100 12/23/17 16:45 12/23/17 16:45 12/23/17 16:45 12/23/17 16:45 12/23/17 16:45 - Physical Exam General Appearance: Yes: Nourished, Appropriately Dressed, Obese. No: Apparent Distress HEENT: positive: EOMI, CONSTANTINO, Normal ENT Inspection, Normal Voice, Symmetrical, Pharynx Normal, Hearing Grossly Normal. negative: Scleral Icterus (R), Scleral Icterus (L), Pharyngeal Erythema, Tonsillar Exudate, Tonsillar Erythema, Rhinorrhea Neck: positive: Tender, Trachea midline, Normal Thyroid, Supple. negative: Rigid, Lymphadenopathy (R), Lymphadenopathy (L) Respiratory/Chest: positive: Chest Tender (focal tenderness over 11-12th R rib, no tenderness in back with palpation.), Lungs Clear, Normal Breath Sounds. negative: Respiratory Distress, Accessory Muscle Use, Crackles, Wheezing Cardiovascular: positive: Regular Rhythm, Regular Rate, S1, S2. negative: Edema , JVD, Murmur Vascular Pulses: Carotid (R): 4+, Carotid (L): 4+ Gastrointestinal/Abdominal: positive: Normal Bowel Sounds, Soft, Protuberent. negative: Tender, Flat, Organomegaly, Pulsatile Mass, Distended, Guarding, Rebound, Hernia Rectal Exam: positive: deferred Lymphatic: negative: Adenopathy, Tenderness Musculoskeletal: positive: Normal Inspection. negative: CVA Tenderness, Vertebral Tenderness Extremity: positive: Normal Capillary Refill, Normal Inspection, Normal Range of Motion, Pelvis Stable. negative: Tender, Pedal Edema Integumentary: positive: Normal Color, Dry, Warm. 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 Tenderness with chest wall palpation.) - Electrocardiogram EKG: Normal - Age Age: >/= 65 - Risk Factors Risk Factors Heart Score: Yes Hx Hypercholesterolemia, Yes Hx Hypertension Based on the list above the patient has:: 1-2 risk factors - Troponin Troponin: </= normal limit - Score Heart Score - Total: 3 - ECG Intrepretation Rhythm: Regular Rhythm - [place]: Normal - P and AR Delta Wave(s) Present: No WPW: No - ST and T Early Repolarization: No Non Specific ST-T Wave changes: No Flattened T Waves: No Prolonged Q-T Interval: No - ECG Impressions Normal ECG: Yes Non-specific ST Elevation: No Ischemic Changes: No Bradycardia: No Torsades suze Pointes: No WPW: No ED Treatment Course - LABORATORY CBC & Chemistry Diagram: 12/23/17 17:45 12/23/17 17:45 - RADIOLOGY Radiology Studies Ordered: Category Date Time Status CHEST PA & LAT [RAD] Stat Radiology 12/23/17 17:46 Ordered Medical Decision Making - Medical Decision Making Pt was seen at bedside, also will be seen by attending Dr. Najera. Pt presenting with complaints of R-sided chest pain since 10:30 am this morning and pain in her back between her shoulder blades since 7pm. Pt states the pain is non-exertional, is not associated with new exercise/lifting, and is not associated with nausea/vomiting. Pt denies any fevers/chills, headache, vision changes, SOB, nausea/vomiting, abdominal pain, diarrhea, or leg swelling. She has also been constipated and "straining" with BMs x2 weeks. Pt has PMH of HTN and HLD, and has not been taking her medications as prescribed in over 6 months, as her atorvastatin made her "not have energy" and her HTN medication could not be paid for by insurance. Pt has been taking her old HTN medication instead (amlodipine/valsartan 5mg/160 mg Qday, and Carvedilol 25 mg PO BID), and has stopped the atorvastatin completely. PE showed obese woman, focal tenderness on R chest wall (11-12th R rib). Clear lung and heart sounds, no pedal edema. BP 183/79 today, likely due to pt medication non-compliance. Considering costochondritis vs msk pain vs ACS r/o. Pain is non-exertional, no n /v, no radiation to extremities or jaw. Pt afebrile. Ordered work-up including CBC, CMP, troponin, chest x-ray, ECG. Provided 162 mg PO aspirin (pt takes 162 mg at home), and 5 mg PO Norvasc for HTN and prevention of clot formation. Will continue to reassess pt and monitor for symptomatic improvement. ECG NSR, no ST elevations, intervals normal. 12/23/17 17:58 CBC: WNL First troponin <.02. Second troponin ordered for 3 hours from first level (20:45 ). Total cholesterol 215, LDL 148. CMP: WNL 12/23/17 18:45 Coags WNL. 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 Pt signed out to next resident team. Explained presentation, ED course, any pending results, and needed interventions to resident Dr. Flowers. Pending pt chest x-ray and second troponin. 12/23/17 19:22 *DC/Admit/Observation/Transfer Diagnosis at time of Disposition: Chest pain Qualifiers: Chest pain type: intercostal pain Qualified Code(s): R07.82 - Intercostal pain - Referrals Referrals: Oneil Prasad MD [Primary Care Provider] - - Patient Instructions Printed Discharge Instructions: DI for Atypical Chest Pain Additional Instructions: You were seen in the ER today for chest pain. Please follow-up with your primary care doctor and your commission agent livestock within 1-2 days to discuss your visit and make sure your symptoms have improved. Please return to the ER if you have any worsening chest pain, development of fevers or chills, loss of consciousness , inability to tolerate food or fluids, or any other concerns. - Post Discharge Activity
[2017-12-23 18:01] LABS: BASO % 0.8 % (0-2.0); EOS % 6.5 % (0-4.5); HEMATOCRIT 34.2 % (32.4-45.2); HEMOGLOBIN 10.9 GM/dL (10.7-15.3); LYMPH % 25.1 % (8-40); MCH 24.8 pg (25.7-33.7); MCHC 31.9 g/dl (32.0-36.0); MEAN CELL VOLUME 77.8 fl (80-96); MEAN PLT VOLUME 8.3 fl (7.5-11.1); MONO % 7.2 % (3.8-10.2); NEUT % 60.4 % (42.8-82.8); PLATELET COUNT 220 K/MM3 (134-434); RDW 15.9 % (11.6-15.6); WHITE BLOOD COUNT 8.2 K/mm3 (4.0-10.0)
[2017-12-23 18:25] LABS: INR 1.03 (0.83-1.09); PROTHROMBIN TIME (PATIENT) 12.1 SEC (9.7-13.0)
[2017-12-23 18:30] LABS: ALBUMIN 3.6 g/dl (3.4-5.0); ALK PHOS 78 U/L (45-117); ANION GAP 8 MMOL/L (8-16); BILIRUBIN,TOTAL 0.7 mg/dL (0.2-1); BLOOD UREA NITROGEN 20 mg/dL (7-18); CALCIUM 8.6 mg/dL (8.5-10.1); CHLORIDE 108 mmol/L (98-107); CHOLESTEROL 215 mg/dL (50-200); CO2 26 mmol/L (21-32); CREATININE 1.1 mg/dL (0.55-1.3); GLUCOSE,RANDOM 83 mg/dL (74-106); HDL CHOLESTEROL 51 mg/dL (40-60); N-TERMINAL BNP 134.5 pg/ml (5-125); POTASSIUM 3.9 mmol/L (3.5-5.1); SGOT/AST 12 U/L (15-37); SGPT/ALT 14 U/L (13-61); SODIUM 142 mmol/L (136-145); TOT PROT 6.9 g/dl (6.4-8.2); TRIGLYCERIDES 73 mg/dL (0-150)
--- NOTE | 2017-12-23 18:32 | PDOC ---
Attending Attestation - HPI HPI: 12/23/17 19:53 The patient is a 72 year old female, with a significant past medical history of hypertension and hypercholesterolemia, who presents to the emergency department with, chest pain. As per patient the symptoms onset this morning. Her pain is right sided and nonpleuritic. She denies recent fevers, chills, headache or dizziness. She denies recent nausea, vomit, diarrhea or constipation. She denies recent dysuria, frequency, urgency or hematuria. She denies recent shortness of breath. Allergies: NKDA Primary Care Physician: Dr. Prasad - Physicial Exam PE: 12/23/17 19:55 Constitutional: Awake, alert, oriented. No acute distress. Head: Normocephalic. Atraumatic Eyes: PERRL. EOMI. Conjunctivae are not pale. ENT: Mucous membranes are moist and intact. Posterior pharynx without exudates or erythema. Uvula midline. Neck: Supple. Full ROM. No lymphadenopathy. Cardiovascular: Regular rate. Regular rhythm. S1, S2 regular. Distal pulses are 2+ and symmetric. Pulmonary/Chest: Right peristernal tenderness at the fold of the breast. No evidence of respiratory distress. Clear to auscultation bilaterally No wheezing, rales or rhonchi. Abdominal: Soft and non-distended. There is no tenderness. No rebound, guarding or rigidity. No organomegaly. No palpable masses. Good bowel sounds. Back: No CVA tenderness. Musculoskeletal: No edema. No cyanosis. No clubbing. Full range of motion in all extremities. No calf tenderness. Radial/pedal pulses are intact and 2+ bilaterally Skin: Skin is warm and dry. No petechiae. No purpura. Neurological: Alert and oriented to person, place, and time. Cranial nerves II -XII are grossly intact. Normal speech. Strength is grossly symmetric. No sensory deficits. Psychiatric: Good eye contact. Normal interaction, affect and behavior. <Jaime Stallings - Last Filed: 12/23/17 19:53> - Resident Resident Name: Berna Westbrook - ED Attending Attestation I have performed the following: I have examined & evaluated the patient, The case was reviewed & discussed with the resident, I agree w/resident's findings & plan, Exceptions are as noted - Medical Decision Making 12/23/17 18:32 I, Dr. Blanca Najera DO, attest that this document has been prepared under my direction and personally reviewed by me in its entirety. I further attest, that it accurately reflects all work, treatment, procedures and medical decision -making performed by me. 12/23/17 19:08 a/p: 72yo female with R sided reproducible parasternal chest wall pain -no cough, no f/c, no rash -palpation reproduces pain -no pleuritic component -mildly elevated BP, will give another dose of norvasc - asa -trop x 2 -cxr -labs -will monitor and reassess 12/23/17 21:58 repeat trop negative vital signs improved cxr clear 12/23/17 22:09 pt denies cp at this time states she feels much better trop negative stable for d/c to home <Blanca Najera - Last Filed: 12/23/17 22:10> *DC/Admit/Observation/Transfer - Discharge Dispostion Decision to Admit order: No - Attestations Physician Attestion: 12/23/17 22:10 I, Dr. Blanca Najera DO, attest that this document has been prepared under my direction and personally reviewed by me in its entirety. I further attest, that it accurately reflects all work, treatment, procedures and medical decision -making performed by me. <Blanca Najera - Last Filed: 12/23/17 22:10> Diagnosis at time of Disposition: Chest pain Qualifiers: Chest pain type: intercostal pain Qualified Code(s): R07.82 - Intercostal pain - Discharge Dispostion Disposition: HOME Condition at time of disposition: Stable - Referrals Referrals: Oneil Prasad MD [Primary Care Provider] - Cam Garay MD [Staff Physician] - - Patient Instructions Printed Discharge Instructions: DI for Atypical Chest Pain Additional Instructions: You were seen in the ER today for chest pain. 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 Please return to the ER if you have any worsening chest pain, development of fevers or chills, loss of consciousness , inability to tolerate food or fluids, or any other concerns. - Post Discharge Activity Heart Score/ECG Review - ECG Intrepretation Comment:: 12/23/17 19:51 sinus at 73 w 1st degree av block, nl axis, no acute st/t wave findings <Blanca Najera - Last Filed: 12/23/17 22:10> Attestations - Attestations 12/23/17 20:04 Documentation prepared by Jaime Stallings, acting as ophthalmic medical technologist for Blanca Najera DO. <Jaime Stallings - Last Filed: 12/23/17 19:53>
[2017-12-23] MEDS ORDERED: amLODIPine BESYLATE 5 MG TABLET (FP) PO ONE (18:35)
[2017-12-23] MEDS ORDERED: ASPIRIN 325 MG TABLET PO ONE (18:35)
[2017-12-23] MEDS ORDERED: ASPIRIN 81 MG CHEWABLE TABLETS ONE (18:37)
[2017-12-23] MEDS ORDERED: amLODIPine BESYLATE 5 MG TABLET (FP) ONE (18:37)
[2017-12-23] MEDS ORDERED: ASPIRIN 81 MG CHEWABLE TABLETS PO ONE (18:37)
--- NOTE | 2017-12-23 19:09 | PDOC ---
*Physical Exam - Vital Signs Last Vital Signs Temp Pulse Resp BP Pulse Ox 98 F 72 18 183/79 H 100 12/23/17 16:45 12/23/17 16:45 12/23/17 16:45 12/23/17 16:45 12/23/17 16:45 ED Treatment Course - LABORATORY CBC & Chemistry Diagram: 12/23/17 17:45 12/23/17 17:45 - ADDITIONAL ORDERS Additional order review: Laboratory Results 12/23/17 12/23/17 17:45 17:45 PT with INR 12.10 INR 1.03 PTT (Actin FS) 31.0 Sodium 142 Potassium 3.9 Chloride 108 H Carbon Dioxide 26 Anion Gap 8 BUN 20 H Creatinine 1.1 Creat Clearance w eGFR 48.96 Random Glucose 83 Calcium 8.6 Total Bilirubin 0.7 AST 12 L ALT 14 Alkaline Phosphatase 78 Creatine Kinase 149 Troponin I < 0.02 B-Natriuretic Peptide 134.5 H Total Protein 6.9 Albumin 3.6 Triglycerides 73 Cholesterol 215 H Total LDL Cholesterol 148 H HDL Cholesterol 51 12/23/17 17:45 RBC 4.40 MCV 77.8 L MCHC 31.9 L RDW 15.9 H MPV 8.3 Neutrophils % 60.4 Lymphocytes % 25.1 Monocytes % 7.2 Eosinophils % 6.5 H Basophils % 0.8 - Medications Given in the ED: ED Medications Discontinued Medications Generic Name Dose Route Start Last Admin Trade Name Freq PRN Reason Stop Dose Admin Amlodipine Besylate 5 mg 12/23/17 18:35 12/23/17 18:41 Norvasc - PO 12/23/17 18:36 5 mg ONCE ONE Administration Aspirin 325 mg 12/23/17 18:35 12/23/17 18:41 Asa - PO 12/23/17 18:36 Not Given ONCE ONE Aspirin 162 mg 12/23/17 18:37 12/23/17 18:41 Asa - PO 12/23/17 18:38 162 mg ONCE ONE Administration Medical Decision Making - Medical Decision Making 12/23/17 19:[address] Westbrook. Patient is a 72 yo female w/ pmh of HTN and HLD who presents for evaluation of right shoulder /chest pressure x1 day. Patient has had recent medication changes in past few weeks, currently pending repeat troponin for further evaluation; negative workup thus far. *DC/Admit/Observation/Transfer Diagnosis at time of Disposition: Chest pain Qualifiers: Chest pain type: intercostal pain Qualified Code(s): R07.82 - Intercostal pain - Discharge Dispostion Disposition: HOME Condition at time of disposition: Stable - Referrals Referrals: Oneil Prasad MD [Primary Care Provider] - Cam Garay MD [Staff Physician] - - Patient Instructions Printed Discharge Instructions: DI for Atypical Chest Pain Additional Instructions: You were seen in the ER today for chest pain. 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 Please return to the ER if you have any worsening chest pain, development of fevers or chills, loss of consciousness , inability to tolerate food or fluids, or any other concerns. - Post Discharge Activity
[2017-12-23 21:28] VITALS: BP 142/81; PULSE 67; TEMP 98.6
--- NOTE | 2017-12-24 15:08 | EKG ---
Test Reason : Blood Pressure : / mmHG Vent. Rate : 072 BPM Atrial Rate : 072 BPM P-R Int : 202 ms QRS Dur : 100 ms QT Int : 404 ms P-R-T Axes : 053 -23 041 degrees QTc Int : 442 ms POOR DATA QUALITY, INTERPRETATION MAY BE ADVERSELY AFFECTED NORMAL SINUS RHYTHM NORMAL ECG WHEN COMPARED WITH ECG OF 18-MAY-2017 19:05, NO SIGNIFICANT CHANGE WAS FOUND Confirmed by HAILE SHARMA, GRACE ([id number]) on 12/24/2017 3:08:12 PM Referred By: Confirmed By:GRACE BE MD
== END 2017-12-23 22:03 | disposition home or self-care (01) ==
LOC: JER 16:42
DX: R07.82 Intercostal pain (principal)
CPT/HCPCS: 36415; 71046-TC-FY; 80053; 80061; 82550; 83721; 83880; 84484; 85025; 85610; 85730; 93005; 93010; 99282-25

== ENCOUNTER 2018-01-22 17:56 | Emergency (ER) | payer OTHER ==
--- NOTE | 2018-01-22 18:11 | PDOC ---
Rapid Medical Evaluation Time Seen by Provider: 01/22/18 18:08 Medical Evaluation: Allergies Allergy/AdvReac Type Severity Reaction Status Date / Time No Known Allergies Allergy Verified 05/18/17 18:52 01/22/18 18:09 I have performed a brief in-person evaluation of this patient. The patient presents with a chief complaint of: sudden onset severe REBOLLEDO to L restorationism 1 hr ago, comes and goes, worse REBOLLEDO of life. No dizziness, blurry vision, focal weakness, n/v. H/o HTN, HLD, Pertinent physical exam findings: BP 182/73, non-focal I have ordered the following:cbc/chem/esr/CT head The patient will proceed to the ED for further evaluation. 01/22/18 18:12 01/22/18 18:13 Discharge Disposition - Diagnosis Headache Qualifiers: Headache type: unspecified Headache chronicity pattern: acute headache Intractability: not intractable Qualified Code(s): R51 - Headache - Referrals Referrals: Oneil Prasad MD [Primary Care Provider] - - Patient Instructions - Post Discharge Activity
[2018-01-22 18:19] VITALS: BMI 40.9
[2018-01-22 18:46] LABS: BASO % 0.9 % (0-2.0); EOS % 7.1 % (0-4.5); HEMATOCRIT 32.1 % (32.4-45.2); HEMOGLOBIN 10.9 GM/dL (10.7-15.3); LYMPH % 26.8 % (8-40); MEAN CELL VOLUME 76.6 fl (80-96); NEUT % 56.2 % (42.8-82.8); PLATELET COUNT 216 K/MM3 (134-434); RDW 15.5 % (11.6-15.6); WHITE BLOOD COUNT 8.5 K/mm3 (4.0-10.0)
[2018-01-22 19:15] LABS: ALBUMIN 3.7 g/dl (3.4-5.0); ALK PHOS 85 U/L (45-117); ANION GAP 8 MMOL/L (8-16); BILIRUBIN,TOTAL 0.7 mg/dL (0.2-1); BLOOD UREA NITROGEN 19 mg/dL (7-18); CALCIUM 8.3 mg/dL (8.5-10.1); CHLORIDE 105 mmol/L (98-107); CO2 27 mmol/L (21-32); CREATININE 1.4 mg/dL (0.55-1.3); GLUCOSE,RANDOM 89 mg/dL (74-106); POTASSIUM 3.9 mmol/L (3.5-5.1); SGOT/AST 18 U/L (15-37); SGPT/ALT 20 U/L (13-61); SODIUM 140 mmol/L (136-145); TOT PROT 7.3 g/dl (6.4-8.2)
--- NOTE | 2018-01-22 20:03 | PDOC ---
History of Present Illness - General Chief Complaint: Headache Stated Complaint: LEFT SIDE PAIN Time Seen by Provider: 01/22/18 18:08 - History of Present Illness Initial Comments: Adriana Ann is a 72yo woman with a PMH of HTN and HLD who presents with left-sided temporal pain that started around 6pm today. Ms Ann reports that the pain started acutely this evening. It is a 8/10 pain, sharp and throbbing, and she has never experienced anything similar before. She also notes pain in the right jaw. The jaw pain has been present for several days, though Ms Ann attributed it to poor dentition, but this has also worsened significantly today. She denies any associated visual changes, headache, sinus congestion, nasal congestion/rhinorrhea, or ear pain. The pain was concerning enough that Ms Ann thought it needed immediate evaluation. Ms Ann does note frequent headaches lately, but she has been ignoring them. She reports that she feels she gets headaches when she forgets her BP medication. Past History - Past Medical History Allergies/Adverse Reactions: Allergies Allergy/AdvReac Type Severity Reaction Status Date / Time No Known Allergies Allergy Verified 01/22/18 18:12 Home Medications: Ambulatory Orders Carvedilol 25 mg PO BID 04/27/16 Rosuvastatin Calcium [Crestor] 10 mg PO DAILY 08/19/16 Amlodipine Besylate/Valsartan [Amlodipine-Valsartan 5-160 mg] 1 each PO DAILY Aspirin [Heard Aspirin] 2 tab PO ONCE 12/23/17 Chlorhexidine Gluconate [Peridex -] 15 ml MM BID #1 bottle 01/22/18 Anemia: No Asthma: No Cancer: No COPD: No GI Disorders: Yes (HIATAL HERNIA) HTN: Yes Hypercholesterolemia: Yes - Immunization History Immunization Up to Date: Yes - Suicide/Smoking/Psychosocial Hx Smoking Status: No Smoking History: Never smoked Have you smoked in the past 12 months: No Number of Cigarettes Smoked Daily: 0 Hx Alcohol Use: No Drug/Substance Use Hx: No Substance Use Type: None Review of Systems - Review of Systems Comments:: General: No fevers, no chills, no weight or appetite change, no malaise. + Difficulty sleeping. HEENT: No changes in vision, no changes in hearing, no congestion, no sore throat. +frequent REBOLLEDO CV: No chest pain, no palpitations, no LE edema. h/o HTN Pulm: No SOB, no cough, no wheezing GI: No nausea or vomiting, no change in bowel habits, no melena : No frequency, no urgency, no dysuria Musc: No back pain, no joint swelling, no recent injury Skin: No rash, no lesions, no erythema Endo: No excessive thirst, no heat/cold intolerance Heme: No unusual bruising or bleeding, no swollen glands Neuro: No syncope, no numbness/tingling, no focal weakness Vasc: No claudication Psych: No recent change in mood, no SI or HI *Physical Exam - Vital Signs Last Vital Signs Temp Pulse Resp BP Pulse Ox 98 F 72 20 182/73 H 100 01/22/18 18:07 01/22/18 18:07 01/22/18 18:07 01/22/18 18:07 01/22/18 18:07 - Physical Exam Comments: General: Concerned but no acute distress HEENT: PERRL, EOMI, MMM, voice normal, normal neck ROM, no LAD. No sinus tenderness. Some TTP along L religion. Very poor dentition with gingival disease and numerous missing teeth Cards: RRR, no murmur appreciated Pulm: Comfortable on room air, clear to auscultation bilaterally Abd: Soft, nontender, nondistended Ext: Atraumatic.ROM intact. Strength 5/5 and equal bilaterally Vasc: Extremities WWP Skin: Normal color, no rashes or lesions Neuro: A&Ox3, CN grossly intact, normal speech, motor/sensory grossly intact and symmetric Psych: Mood appropriate to situation Moderate Sedation - Procedure Monitoring Vital Signs: Procedure Monitoring Vital Signs Temperature 98 F 01/22/18 18:07 Pulse Rate 72 01/22/18 18:07 Respiratory Rate 20 01/22/18 18:07 Blood Pressure 182/73 H 01/22/18 18:07 O2 Sat by Pulse Oximetry (%) 100 01/22/18 18:07 ED Treatment Course - LABORATORY CBC & Chemistry Diagram: 01/22/18 18:36 01/22/18 18:36 - ADDITIONAL ORDERS Additional order review: Laboratory Results 01/22/18 18:36 Sodium 140 Potassium 3.9 Chloride 105 Carbon Dioxide 27 Anion Gap 8 BUN 19 H Creatinine 1.4 H Creat Clearance w eGFR 37.07 Random Glucose 89 Calcium 8.3 L Total Bilirubin 0.7 AST 18 ALT 20 Alkaline Phosphatase 85 Total Protein 7.3 Albumin 3.7 01/22/18 18:36 RBC 4.20 MCV 76.6 L MCHC 34.0 RDW 15.5 MPV 8.0 Neutrophils % 56.2 Lymphocytes % 26.8 Monocytes % 9.0 Eosinophils % 7.1 H Basophils % 0.9 - RADIOLOGY Radiology Studies Ordered: Category Date Time Status FACIAL BONES CT W/O CONTRAST [CT] Stat CT Scan 01/22/18 19:23 Ordered Medical Decision Making - Medical Decision Making 01/22/18 19:34 Adriana Ann is a 72yo woman with a PMH of HTN and HLD who presents with acute onset of left temporal and left jaw pain that started about an hour before presenting to the ED. - Concerning for temporal arteritis. May also be tension REBOLLEDO, sinusitis, or less likely migraine given lack of associated symptoms - CT head ordered in E. Added CT facial bones - CBC, CMP, ERS ordered in E. Added CRP. 01/22/18 20:17 - Labs reviewed. No concerning abnormalities - CT completed, read pending. Images reviewed, appear to be normal w/o bleed, fracture, or other concerning findings - Ms Ann reports that her pain has now resolved. She also reports difficulty sleeping, feeling fatigued, and symptoms c/w [id number] though she has never been evaluated and does not wear CPAP. She additionally reports that she has been under a significant amount of stress caring for her daughter. - Will most likely be discharged home with appropriate follow up once CT read is completed. - BP will need to be rechecked prior to discharge 01/22/18 21:59 - ESR 22. CRP elevated at 1.6, but non-specific change and may be due to gingival disease - Discussed with Ms Ann and with her son and daughter, now present in the ED with her - Discussed home care and follow up at length. Ms Ann and her children all state understanding and agreement with the plan to discharge home. Continues to feel significantly improved. Seen and discussed with Dr Najera. Nicole Epperson PGY1 *DC/Admit/Observation/Transfer Diagnosis at time of Disposition: Headache Qualifiers: Headache type: unspecified Headache chronicity pattern: acute headache Intractability: not intractable Qualified Code(s): R51 - Headache - Discharge Dispostion Disposition: HOME Condition at time of disposition: Stable Decision to Admit order: No - Prescriptions Prescriptions: Chlorhexidine Gluconate [Peridex -] 15 ml MM BID #1 bottle - Referrals Referrals: Edy Su MD [Staff Physician] - Cortes Slater MD [Staff Physician] - - Patient Instructions Printed Discharge Instructions: DI for Gingivitis, DI for Headache Additional Instructions: Discharge Instructions: You were seen in the emergency department for a headache on the left side of your face and head. You had blood tests which were all normal. You also had a CT scan of your face and head. There was no injury or acute problem, but the CT noted some sinus polyps. Home care: - You have been prescribed an antibiotic mouthwash. Please pick this up at your pharmacy and use it twice per day to help with your dental disease and gum infections. Do not swallow the medication; swish and spit. - You may use acetaminophen or your preferred pain medication for your headaches. You may take 1000mg of acetaminophen every 6 hours as needed. Do not take more than 4g of acetaminophen per day (4 doses total) to avoid liver injury. - You may find that an ice pack or laying down for a short time helps relieve your headaches Follow Up: - You should see a dentist as soon as possible to address your gum disease. This is likely contributing significantly to your pain - Follow up with your primary doctor within the next week. Talk to your regular doctor about following up with a sleep specialist to evaluate you for sleep apnea. - You have been referred to Dr Slater in neurology to evaluate your chronic headaches. Make an appointment within the next 1-2 weeks - You have been referred to Dr Su in ENT to evaluate if your sinus polyps are contributing to your headaches. - Post Discharge Activity
[2018-01-22] MEDS ORDERED: ACETAMINOPHEN 325 MG TABLET (FP) PO ONE (20:16)
--- NOTE | 2018-01-22 20:16 | PDOC ---
Attending Attestation - HPI HPI: 01/22/18 20:26 The patient is a 72 year old female with a significant PMH of hypertension and hyperlipidemia who presents to the emergency department with a headache since earlier today. The patient describes her headache as located temporally, sharp and throbbing. She reports some associated jaw pain. She states that she has experienced some previous gum pain for several days. She states that this pain that she is experiencing elissa is worse than that. She denies any ear pain or sinus congestion. The patient denies any other symptoms or complaints. PCP: Osmar Documentation prepared by Nito Jay, acting as medical voucher clerk for Blanca Najera MD. <Nito Jay - Last Filed: 01/22/18 20:25> - Resident Resident Name: Nicole Epperson - ED Attending Attestation I have performed the following: I have examined & evaluated the patient, The case was reviewed & discussed with the resident, I agree w/resident's findings & plan, Exceptions are as noted - Physicial Exam PE: 01/22/18 20:49 Gen: aaox3, nad heent: PERRL, EOMI, MMM, poor dentition neck: supple, no midline ttp heart: +s1s2 reg lungs: cta b/l abd: soft, nt/nd +bs ext: no c/c/e neuro: cn II-xii grossly intact, muscle strength 5/5 UE and LE, sensation intact , mild ttp L temporal region - Medical Decision Making 01/22/18 20:16 I, Dr. Blanca Najera, DO, attest that this document has been prepared under my direction and personally reviewed by me in its entirety. I further attest, that it accurately reflects all work, treatment, procedures and medical decision -making performed by me. 01/22/18 20:47 a/p: 72yo female with intermittent short episodes of L temporal pain -c/o frontal sinus pain and gum pain -pt with poor dentition, gingival disease to gums-needs dental follow up -pt currently denies the pain -no n/v/d -no vision changes or eye pain, no injected eye -ttp over L mu-ism -neuro intact -no f/c -ambulates with a steady gait -will send labs, esr, crp -head ct, facial bones ct -will give tylenol for pain 01/22/18 20:[address] negative retention cysts seen on facial bones ct without acute sinusitis labs reviewed, pending ESR and CRP 01/22/18 22:00 pt feeling better ESR negative nonspecific mildly elevated CRP will give dental, neuro, ent follow up <Blanca Najera - Last Filed: 01/22/18 22:01>
[2018-01-22 22:22] VITALS: BP 144/73; PULSE 66; TEMP 97.8
== END 2018-01-22 22:23 | disposition home or self-care (01) ==
LOC: JER 17:56
DX: R51 Headache (principal); I10 Essential (primary) hypertension; E78.5 Hyperlipidemia, unspecified
CPT/HCPCS: 36415; 70450-TC; 70486-TC; 80053; 85025; 85651; 86140; 99282-25

== ENCOUNTER 2018-02-25 13:56 | Emergency (ER) | payer OTHER ==
[2018-02-25 14:15] VITALS: TEMP 97.9; BMI 40.9
--- NOTE | 2018-02-25 14:16 | PDOC ---
Rapid Medical Evaluation Chief Complaint: Eye Problem Time Seen by Provider: 02/25/18 14:12 Medical Evaluation: Allergies Allergy/AdvReac Type Severity Reaction Status Date / Time No Known Allergies Allergy Verified 02/25/18 14:11 02/25/18 14:12 I have performed a brief in-person evaluation of this patient. The patient presents with a chief complaint of:Left eye red and teary since this AM. denies injury denies pain or discharge. no vision change, has cataract in the left eye. Headache to the left side dull sensation started this morning. Pertinent physical exam findings:left eye with GUERITA, conjunctiva red , EOMI without pain. I have ordered the following:none The patient will proceed to the ED for further evaluation.
--- NOTE | 2018-02-25 16:04 | PDOC ---
History of Present Illness - General Chief Complaint: Eye Problem Stated Complaint: EYE PROBLEM Time Seen by Provider: 02/25/18 14:12 History Source: Patient - History of Present Illness Initial Comments: 02/25/18 16:29 The patient is a 72 year female with a PMH of HTN, HLD, cataract who presents to our ED this afternoon c/o acute onset of L eye redness. States she went to the bathroom earlier today and saw in the mirror that her eye was red prompting her visit to the ED. Endorses unilateral L sided tearning since yesterday denies any changes from her baseline visual acuity (@ baseline patient has L sided blurry vision), forego body sensation, pain, trauma. Notes she had R sided cataract surgery a few years previous and was counseled to have R sided surgery however she did not do so. The patient denies chest pain, shortness of breath, abdominal pain, nausea/ vomiting, diarrhea/constipation, dysuria/hematuria. NKDA PMD: Dr. Prasad Past History - Past Medical History Allergies/Adverse Reactions: Allergies Allergy/AdvReac Type Severity Reaction Status Date / Time No Known Allergies Allergy Verified 02/25/18 14:11 Home Medications: Ambulatory Orders Carvedilol 25 mg PO BID 04/27/16 Rosuvastatin Calcium [Crestor] 10 mg PO DAILY 08/19/16 Amlodipine Besylate/Valsartan [Amlodipine-Valsartan 5-160 mg] 1 each PO DAILY Aspirin [[place] Aspirin] 2 tab PO ONCE 12/23/17 Chlorhexidine Gluconate [Peridex -] 15 ml MM BID #1 bottle 01/23/18 Amlodipine/Valsartan [Exforge 5-160 mg Tablet] 1 tab PO DAILY #30 tab 02/25/18 Anemia: No Asthma: No Cancer: No COPD: No GI Disorders: Yes (HIATAL HERNIA) HTN: Yes Hypercholesterolemia: Yes - Immunization History Immunization Up to Date: Yes - Suicide/Smoking/Psychosocial Hx Smoking Status: No Smoking History: Never smoked Have you smoked in the past 12 months: No Number of Cigarettes Smoked Daily: 0 Information on smoking cessation initiated: No Hx Alcohol Use: No Drug/Substance Use Hx: No Substance Use Type: None Review of Systems - Review of Systems Constitutional: No: Chills, Fever HEENTM: Yes: Blurred Vision, Tearing. No: Eye Pain, Recent change in vision, Double Vision Respiratory: No: Shortness of Breath, Wheezing Cardiac (ROS): No: Chest Pain, Palpitations, Syncope ABD/GI: No: Constipated, Diarrhea, Nausea, Vomiting : No: Burning, Dysuria *Physical Exam - Vital Signs Last Vital Signs Temp Pulse Resp BP Pulse Ox 97.9 F 81 16 176/86 H 98 02/25/18 14:12 02/25/18 14:12 02/25/18 14:12 02/25/18 14:12 02/25/18 14:12 - Physical Exam General Appearance: Yes: Nourished, Appropriately Dressed HEENT: positive: Normal Voice, Hearing Grossly Normal, Other (L sided subconjunctival hemmorhage, EOMI, PEERLA; Snellen: L 20/20, R 20/70) Neck: positive: Trachea midline, Supple Respiratory/Chest: positive: Lungs Clear, Normal Breath Sounds Cardiovascular: positive: S1, S2. negative: Edema, JVD Moderate Sedation - Procedure Monitoring Vital Signs: Procedure Monitoring Vital Signs Temperature 97.9 F 02/25/18 14:12 Pulse Rate 81 02/25/18 14:12 Respiratory Rate 16 02/25/18 14:12 Blood Pressure 176/86 H 02/25/18 14:12 O2 Sat by Pulse Oximetry (%) 98 02/25/18 14:12 Medical Decision Making - Medical Decision Making 02/25/18 16:34 72 year old female with redness of L eye. VS significant for hypertension (176/ 86). Left sided subconjunctival hemmorhage, EOMI, PERRLA, decreased visual acuity (baseline) on R - suspect subjunctival hemmorhage vs. spontaneous hyphema as patient is not c/o pain less concerning for medical emergency including acute angle closure glaucoma. 02/25/18 16:36 On Attending exam, patient notes she is also at the ED because of her high blood pressure and that she has a family h/o strokes. Has not taken her BP medication (presents an empty bottle of HCTZ) for a few weeks because she ran out of pills and her insurance does not cover refills. 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 Resedniz, later this week. Denies headache, changes in blurry vision (which is baseline in R eye). 02/25/18 16:54 Case d/w Dr. Resendiz - requests 30 day prescription of Amlodipine-Valsartan (5-160 ) and outpatient follow-up as previously scheduled. Patient counseled on return precautions and importance of adhering to anti-hypertensive medication regimen. Will discharge with instruction to f/u with ophthalmology tomorrow and return to ED if patient notices changes in visual acuity, experience severe pain, or discharge. I discussed the physical exam findings, ancillary test results and final diagnoses with the patient. I answered all of the patient's questions. The patient was satisfied with the care received and felt comfortable with the discharge plan and treatment plan. The patient will return to the Emergency Department with any new, persistent or worsening symptoms. *DC/Admit/Observation/Transfer Diagnosis at time of Disposition: Redness of eye, left - Discharge Dispostion Disposition: HOME Condition at time of disposition: Good Decision to Admit order: No - Prescriptions Prescriptions: Amlodipine/Valsartan [Exforge 5-160 mg Tablet] 1 tab PO DAILY #30 tab - Referrals Referrals: Oneil Prasad MD [Primary Care Provider] - Antwan Resendiz MD [Staff Physician] - Lance Szymanski MD [Staff Physician] - - Patient Instructions Printed Discharge Instructions: DI for High Blood Pressure Additional Instructions: Please make a follow-up appointment to see Dr. Jordan (contact information included) tomorrow. Please keep your previously scheduled appointment with Dr. Resendiz. Follow-up with your primary care doctor in the next one week. Your care is not complete until you are evaluated by these doctors. As per Dr. Resendiz, we have sent a blood pressure medication to your pharmacy. Please take as directed. Return to the Emergency Department for any new/worsening/concerning symptoms. - Post Discharge Activity
[2018-02-25 16:22] VITALS: BP 159/77; PULSE 71
--- NOTE | 2018-02-25 16:52 | PDOC ---
Attending Attestation - Resident Resident Name: Elena Calhoun - ED Attending Attestation I have performed the following: I have examined & evaluated the patient, The case was reviewed & discussed with the resident, I agree w/resident's findings & plan, Exceptions are as noted - Medical Decision Making 02/25/18 16:49 Vital Signs Temp Pulse Resp BP Pulse Ox 97.9 F 71 16 159/77 97 02/25/18 14:12 02/25/18 16:22 02/25/18 16:22 02/25/18 16:22 02/25/18 16:22 72 year old female c/ hx of HTN, HLD, cataracts p/w L eye subconjunctival hemorrhage. Yesterday, was scratching her left eye. This morning, found subconjunctival hemorrhage. No itching, pain, or changes in visual acuity. Pt was concerned that this was a stroke so came into ED. No findings of conjunctivitis. No changes in VA. Findings c/w subconjunctival hemorrhage. Supportive care. Follow up with optho. Reassurance. <Yo Bower - Last Filed: 02/25/18 16:48> - HPI HPI: The patient is a 72 year old female, with a significant PMH of HTN, HLD, and cataract, who presents to the emergency department today complaining of left eye tearing for two days, and erythema for one day. Patient notes her eye began tearing yesterday without any trauma, foreign bodies in the eye, or recent illness. This morning, she notes her eye was red, which prompted her visit to the ED today. She denies any pruritus, eye pain, or changes in vision. The patient denies chest pain, shortness of breath, headache and dizziness. Denies fever, chills, nausea, vomit, diarrhea and constipation. Denies dysuria, frequency, urgency and hematuria. Allergies: NKA Social history: No reported PCP: Dr. Prasad 02/25/18 17:01 - Physicial Exam PE: GENERAL: Awake, alert, and fully oriented, in no acute distress HEAD: No signs of trauma EYES: PERRLA, EOMI, sclera anicteric, conjunctiva clear ENT: +Left eye, OS 20/[address] Calhoun. +Left eye subconjunctival hemorrhage. No purulence, drainage, or lesions. No pain on extraocular movement. Right eye normal exam. EOMI. PERRLA. Auricles normal inspection, hearing grossly normal, nares patent. Moist mucosa NECK: Normal ROM, supple. EXTREMITIES: Normal range of motion, no edema. No clubbing or cyanosis. No cords, erythema, or tenderness NEUROLOGICAL: Cranial nerves II through XII grossly intact. Normal speech, normal gait SKIN: Warm, Dry, normal turgor, no rashes or lesions noted. 02/25/18 17:01 - Medical Decision Making Documentation prepared by KATHIA Henderson, acting as medical surgery nurse for Yo Bower MD. 02/25/18 17:01 <Sharri Haro - Last Filed: 02/25/18 17:02>
== END 2018-02-25 17:21 | disposition home or self-care (01) ==
LOC: JER 13:56
DX: H57.89 Other specified disorders of eye and adnexa (principal); I10 Essential (primary) hypertension; E78.5 Hyperlipidemia, unspecified
CPT/HCPCS: 99281-25

== ENCOUNTER 2018-06-23 22:18 | Emergency (ER) | payer OTHER ==
[2018-06-23 22:30] VITALS: BP 156/82; PULSE 79; TEMP 98.1; BMI 37.3
[2018-06-23] MEDS ORDERED: ACETAMINOPHEN 1000 MG/100 ML VIAL (NON FORMULARY) IVPB ONE (23:34)
[2018-06-23] MEDS ORDERED: METOCLOPRAMIDE HCL INJECTION 10 MG/2 ML VIAL IVPB ONE (23:34)
--- NOTE | 2018-06-24 00:02 | PDOC ---
History of Present Illness - General Chief Complaint: Pain Stated Complaint: GLANDS HURT Time Seen by Provider: 06/23/18 23:07 History Source: Patient Exam Limitations: No Limitations - History of Present Illness Initial Comments: 06/23/18 23:54 73F with a PMH of HTN, HLD, CKD who presents to the ER with complaints of L neck pain. The patient describes 3 days of worsening neck pain. She describes a "hurting", intermittent pain which radiates to the L side of her head. She denies CP, SOB, nausea, vomiting, changes in vision. She states that she has had this similar pain "a year or two ago" when she had a viral URI. She admits to congestion and nasal drainage but denies a sore throat. She does admit to pain when she swallows. Past History - Past Medical History Allergies/Adverse Reactions: Allergies Allergy/AdvReac Type Severity Reaction Status Date / Time No Known Allergies Allergy Verified 02/25/18 14:11 Home Medications: Ambulatory Orders Carvedilol 25 mg PO BID 04/27/16 Rosuvastatin Calcium [Crestor] 10 mg PO DAILY 08/19/16 Aspirin [[place] Aspirin] 2 tab PO ONCE 12/23/17 Spironolactone 25 mg PO DAILY 04/15/18 Anemia: No Asthma: No Cancer: No COPD: No GI Disorders: Yes (HIATAL HERNIA) HTN: Yes Hypercholesterolemia: Yes - Immunization History Immunization Up to Date: Yes - Suicide/Smoking/Psychosocial Hx Smoking Status: No Smoking History: Never smoked Have you smoked in the past 12 months: No Number of Cigarettes Smoked Daily: 0 Information on smoking cessation initiated: No Hx Alcohol Use: No Drug/Substance Use Hx: No Substance Use Type: None Review of Systems - Review of Systems Able to Perform ROS?: Yes Comments:: 06/24/18 00:02 GENERAL/CONSTITUTIONAL: No fever or chills. No weakness. HEAD, EYES, EARS, NOSE AND THROAT: + for neck pain. No change in vision. No ear pain or discharge. CARDIOVASCULAR: No chest pain, palpitations, or lightheadedness. RESPIRATORY: No cough, wheezing, shortness of breath, or hemoptysis. GASTROINTESTINAL: No nausea, vomiting, diarrhea, constipation, or abdominal pain. GENITOURINARY: No dysuria, frequency, hematuria, or change in urination. MUSCULOSKELETAL: No joint or muscle swelling or pain. No neck or back pain. SKIN: No rash or lesions. NEUROLOGIC: No headache, numbness, tingling, focal weakness, loss of consciousness, or change in strength/sensation. Is the patient limited Gambian proficient: No *Physical Exam - Vital Signs Last Vital Signs Temp Pulse Resp BP Pulse Ox 98.1 F 79 16 156/82 100 06/23/18 22:27 06/23/18 22:27 06/23/18 22:27 06/23/18 22:27 06/23/18 22:27 - Physical Exam Comments: 06/24/18 00:02 GENERAL: Well developed, well nourished. Awake and alert. No acute distress. HEENT: Normocephalic, atraumatic. Hearing grossly normal. Moist mucous membranes. PERRLA, EOMI. No conjunctival pallor. Sclera are non-icteric. NECK: Supple. Full ROM. No JVD. No lymphadenopathy. No TTP over neck. CARDIOVASCULAR: Regular rate and rhythm. No murmurs, rubs, or gallops. PULMONARY: No evidence of respiratory distress. Lungs clear to auscultation bilaterally. No wheezing, rales or rhonchi. ABDOMINAL: Soft. Non-tender. Non-distended. No rebound or guarding. GENITOURINARY: No CVA tenderness bilaterally. MUSCULOSKELETAL: Normal range of motion at all joints. No bony deformities or tenderness. EXTREMITIES: No cyanosis. No clubbing. No edema. No calf tenderness or swelling. SKIN: Warm and dry. Normal capillary refill. No rashes. No jaundice. NEUROLOGICAL: Alert, awake, appropriate. Cranial nerves 2-12 intact. Normal speech. Gait is normal without ataxia. PSYCHIATRIC: Cooperative. Good eye contact. Appropriate mood and affect. Medical Decision Making - Medical Decision Making 06/24/18 00:03 73F with a PMH of HTN, HLD, CKD who presents to the ER with complaints of neck pain. The patient is requesting imaging. Will order labs and give tylenol and reglan for her headache and neck pain. Pt became agitated and wanted to leave the ED. I discussed with her why she should stay and get treatment. I also discussed that she should f/u with her PCP and she agrees to do so. However, she became adamant about leaving and walked out prior to signing AMA forms. *DC/Admit/Observation/Transfer Diagnosis at time of Disposition: Neck pain - Discharge Dispostion Disposition: AGAINST MEDICAL ADVICE Condition at time of disposition: Stable Decision to Admit order: No - Referrals Referrals: Oneil Prasad MD [Primary Care Provider] - - Patient Instructions - Post Discharge Activity
--- NOTE | 2018-06-24 00:10 | PDOC ---
Documentation entered by Lenard Byrnes SCRIBE, acting as scribe for Irene Baxter DO. Irene Baxter DO: This documentation has been prepared by the Fitz villalobos Daniel, SCRIBE, under my direction and personally reviewed by me in its entirety. I confirm that the documentation accurately reflects all work , treatment, procedures, and medical decision making performed by me. Attending Attestation - Resident Resident Name: Antwan Riley - ED Attending Attestation I have performed the following: The case was reviewed & discussed with the resident - HPI HPI: 06/23/18 23:34 The patient is a 73 year old female with a past medical history of CHF, HTN, and HLD here today for evaluation of neck pain. The patient reports that her neck pain began 3 days ago, has been worsening, and radiates from the left side of her neck to her head. She reports that her current symptoms feel the same as when she had a viral URI. Patient denies headache, lightheadedness. Denies fever, chills. Denies chest pain, shortness of breath. Denies nausea, vomiting, diarrhea, abdominal pain. Allergies: NKA PCP: Oneil Prasad - Physicial Exam PE: 06/23/18 23:34 see MDM section 06/24/18 00:07 - Medical Decision Making 06/24/18 00:07 73-year-old female initially complaining of jaw and neck pain While obtaining history patient became upset due to the line of questioning, stating "I am not a drug addict" After multiple attempts to convince the patient to stay for further evaluation she stated she wanted to leave and see her primary care physician Full evaluation and exam was not accomplished She was alert oriented 4 and ambulating with steady gait, there were no indications to keep the patient against her will
== END 2018-06-23 23:55 | disposition left against medical advice (07) ==
LOC: JER 22:18
DX: M54.2 Cervicalgia (principal); E78.5 Hyperlipidemia, unspecified; I12.9 Hypertensive chronic kidney disease with stage 1 through stage 4 chronic kidney disease, or unspecified chronic kidney disease; N18.9 Chronic kidney disease, unspecified
CPT/HCPCS: 99281-25

== ENCOUNTER 2018-10-14 20:08 | Inpatient (IN) | payer OTHER ==
--- NOTE | 2018-10-14 20:22 | PDOC ---
History of Present Illness - General Chief Complaint: Rectal Bleed Stated Complaint: RECTAL BLEEDING Time Seen by Provider: 10/14/18 20:21 History Source: Patient, Family (adult daughter at bedside) Exam Limitations: No Limitations - History of Present Illness Initial Comments: 10/14/18 22:03 73F w/ pmh of HTN, HLD, CKD BIBA after being found in the bathtub with blood and feces. Patient was having a bowel movement in the bathtub earlier in the evening then experienced a painful bowel movement with sensation of passing a large mass. The pain made her shout out for help. The daughter called EMS. EMS witnessed a brief episode of syncope in the tub before they could carry the pt out of the scene. Patient was recently diagnosed with a rectal mass after complaining of fatigue, constipation, perineal pain w/a intermittent dark red blood per rectum x 2mo. Had a colonoscopy in April that pt believed resulted in a bleeding polyp. Had an [facility] ED visit one week prior for severe rectal pain and bleed, suspicious mass was found on FLETCHER, was referred to Colorectal Surgery(Dr Whitlock). Dr Whitlock evaluated the patient in clinic ~10/06/18 and brought the patient into the OR for biopsy and sent the patient home with docusate, miralax, percocet. 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 [place] [facility] [place]. Prior to [facility]-ED visit, in the daytime, the patient had a staging pelvic MRI and CT. Severity: severe Associated Symptoms: reports: nausea/vomiting, weakness. denies: chest pain, cough, diaphoresis, headaches, seizure, shortness of breath Past History - Travel Traveled outside of the country in the last 30 days: No Close contact w/someone who was outside of country & ill: No - Past Medical History Allergies/Adverse Reactions: Allergies Allergy/AdvReac Type Severity Reaction Status Date / Time No Known Allergies Allergy Verified 02/25/18 14:11 Home Medications: Ambulatory Orders Carvedilol 25 mg PO BID 04/27/16 Rosuvastatin Calcium [Crestor] 10 mg PO DAILY 08/19/16 Aspirin [[place] Aspirin] 2 tab PO ONCE 12/23/17 Spironolactone 25 mg PO DAILY 04/15/18 Olmesartan/Hydrochlorothiazide [Olmesartan-Hctz 40-12.5 mg Tab] 1 each PO DAILY 10/14/18 Anemia: No Asthma: No Cancer: No (rectal mass) COPD: No Diabetes: No (pre-diabetic) GI Disorders: Yes (HIATAL HERNIA) HTN: Yes Hypercholesterolemia: Yes - Surgical History Abdominal Surgery: No Other Surgical History: 10/14/18 22:27 - eye surgery - tonsillectomy - Family Disease History Family Disease History: CA: Mother (colon cancer ) - Immunization History Immunization Up to Date: Yes - Suicide/Smoking/Psychosocial Hx Smoking Status: No Smoking History: Never smoked Have you smoked in the past 12 months: No Number of Cigarettes Smoked Daily: 0 Hx Alcohol Use: No Drug/Substance Use Hx: No Substance Use Type: None Review of Systems - Review of Systems Able to Perform ROS?: Yes Is the patient limited Lao proficient: No Constitutional: Yes: Weakness, Other (syncope). No: Chills, Fever HEENTM: No: Blurred Vision, Double Vision Respiratory: No: Cough, Shortness of Breath, Wheezing Cardiac (ROS): No: Chest Pain, Palpitations, Chest Tightness ABD/GI: Yes: Constipated, Diarrhea, Nausea, Rectal Bleeding : No: Burning, Dysuria Neurological: Yes: Weakness. No: Headache Hematologic/Lymphatic: Yes: Anemia *Physical Exam - Physical Exam General Appearance: Yes: Obese. No: Apparent Distress HEENT: positive: Symmetrical, Pale Conjunctivae. negative: Scleral Icterus (R) , Scleral Icterus (L) Neck: positive: Trachea midline. negative: Lymphadenopathy (R), Lymphadenopathy (L) Respiratory/Chest: positive: Lungs Clear, Normal Breath Sounds. negative: Labored Respiration, Rapid RR, Rhonchi, Stridor, Wheezing Cardiovascular: positive: Regular Rate (patient takes carvedilol), S1, S2. negative: Murmur, Tachycardia Vascular Pulses: Dorsalis-Pedis (R): 2+, Doralis-Pedis (L): 2+ Gastrointestinal/Abdominal: positive: Soft. negative: Distended, Guarding, Rebound, Tenderness Rectal Exam: positive: other (pedunculated 7-10cm rectal mass, extremely TTP, slow dark bleed) Extremity: positive: Normal Range of Motion, Other (cool extremities). negative : Pedal Edema, Erythema Integumentary: positive: Dry ED Treatment Course - LABORATORY CBC & Chemistry Diagram: 10/14/18 22:05 10/14/18 22:05 Medical Decision Making - Medical Decision Making 10/14/18 22:39 73F w/ pmh of HTN, HLD, CKD presenting with acute on chronic rectal bleed likely 2/2 malignancy - fu CBC, CMP, INR, T&S, EKG, CXR - administer NS 1L bolus - will transfuse if Hgb<7.0 10/14/18 23:14 - EKG showing sinus mandy - CMP notable for troponin <0.02, K 5.8, Cr 2.6 -- will hold off on intervening for elevated K for now - CBC Hgb 9.0 from baseline ~11 -- will administer pRBC x1 - SBP 105 after NS 1L, HR 50-60s but takes carvedilol - spoke to Dr Olivera(Colorectal Surgery, Dr Whitlock's partner), recommended gentle packing if severe bleeding from rectal mass and would accept transfer if necessary - decision to admit d/t need for blood transfusion *DC/Admit/Observation/Transfer Diagnosis at time of Disposition: Lower GI bleed - Discharge Dispostion Condition at time of disposition: Stable Decision to Admit order: Yes - Referrals Referrals: Oneil Prasad MD [Primary Care Provider] - - Patient Instructions - Post Discharge Activity
[2018-10-14 21:00] VITALS: BMI 38.7
--- NOTE | 2018-10-14 21:01 | PDOC ---
Documentation entered by Pan Schmid SCRIBE, acting as scribe for Bryan Lim MD. Bryan Lim MD: This documentation has been prepared by the Sharmaine villalobos Xhesika, SCRIBE, under my direction and personally reviewed by me in its entirety. I confirm that the documentation accurately reflects all work, treatment, procedures, and medical decision making performed by me. Attending Attestation - Resident Resident Name: Coleman Luis - ED Attending Attestation I have performed the following: I have examined & evaluated the patient, The case was reviewed & discussed with the resident, I agree w/resident's findings & plan, Exceptions are as noted - HPI HPI: 10/14/18 20:59 The patient is a 73 year old female with a past medical history of CHF, HTN, pre diabetic and HLD who presents to the ED with rectal bleeding. Patient states she had a rectal exam under anesthesia 1 week ago at [facility], which showed a rectal mass, possibly carcinoma. Patient states her daughter found her in her bathtub covered in her stool and blood. Patient notes she syncopized and currently feels nauseous and weak. Patient notes she has been endorsing 3 weeks of chronic constipation and has been taking miralax. The patient denies shortness of breath, headache and dizziness. Denies fever, chills, cough, vomiting, diarrhea. Denies dysuria, frequency, urgency. Allergies: NKDA PCP: Dr. Oneil Prasad - Physicial Exam PE: 10/15/18 05:23 Agree with exam as documented by resident - Medical Decision Making 10/15/18 05:28 73F with bleed from known rectal mass presenting after weakness and syncopal episode last night mass is oozing on exam Hgb is decreased from baseline by a point consider symptomatic anemia f/u labs 1u PRBC admit
[2018-10-14] MEDS ORDERED: SODIUM CHLORIDE 0.9% 500 ML INFUS.BAG IV ONE (21:07)
[2018-10-14 22:40] LABS: INR 1.08 (0.83-1.09); PROTHROMBIN TIME (PATIENT) 12.8 SEC (9.7-13.0)
[2018-10-14 22:42] LABS: BASO % 0.5 % (0-2.0); EOS % 1.9 % (0-4.5); HEMATOCRIT 28.5 % (32.4-45.2); LYMPH % 12.2 % (8-40); MCH 24.7 pg (25.7-33.7); MCHC 31.6 g/dl (32.0-36.0); MEAN CELL VOLUME 78.4 fl (80-96); MEAN PLT VOLUME 8.3 fl (7.5-11.1); MONO % 6.2 % (3.8-10.2); NEUT % 79.2 % (42.8-82.8); PLATELET COUNT 245 K/MM3 (134-434); RBC 3.63 M/mm3 (3.60-5.2); RDW 14.8 % (11.6-15.6)
[2018-10-14 22:55] LABS: ALBUMIN 3.5 g/dl (3.4-5.0); BILIRUBIN,TOTAL 0.7 mg/dL (0.2-1); CALCIUM 8.9 mg/dL (8.5-10.1); CREATININE 2.6 mg/dL (0.55-1.3); POTASSIUM 5.8 mmol/L (3.5-5.1)
[2018-10-14] MEDS ORDERED: morphine CARPU-JECT 4 MG/1 ML DISP.SYRIN IVPUSH ONE (23:52)
[2018-10-15] MEDS ORDERED: morphine SULFATE 4 MG/ML VIAL ONE (00:03)
[2018-10-15] MEDS ORDERED: SODIUM CHLORIDE 1,000 ML IV SCH (02:45)
[2018-10-15] MEDS ORDERED: oxyCODONE HCL 5 MG TABLET PO ONE (02:49)
[2018-10-15] MEDS ORDERED: ACETAMINOPHEN 325 MG TABLET (FP) PO ONE ×2 (02:50→17:36)
--- NOTE | 2018-10-15 03:02 | HP ---
CHIEF COMPLAINT: anemia PCP: HISTORY OF PRESENT ILLNESS: 73 y/o F, pmh of htn, hld, ckd, prediabetic, is biba after being found passed out in the bathtub surrounded in blood and feces. 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 The mass was biopsied and she was waiting on the results for tomorrow at [facility] from her colo-rectal surgeon Dr. Whitlock. However, today she went to her oncologist Dr. Man, who took a CT a/p after giving her contrast. As per pt, when she went home after the contrast and CT, she felt constipated and needed to use the bathroom urgently, however she could not force herself to move her bowels. Therefore, she sat in her bathtub trying to go, when copious amounts of blood and feces came out abruptly, causing her to pass out. She was then found by her daughter who called the ambulance. She had a colonoscopy done in june, during which multiple polyps were removed. 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 In the ED, her Hb was low and she was transfused 1 unit immediately, and given morphine for her pain. Currently, she is doing well and feeling better. She reports that she is scheduled for a possible surgery for resection of her mass on , if her biopsy came back tomorrow. Denies f/c/n/v/d/ chest pain, sob, numbness or tingling, dysuria. ER course was notable for: (1) Morphine 4mg given (2) 1u pRBC transfused (3) CXR taken- no acute changes noted- waiting for official read Recent Travel: denies recent travel outside country PAST MEDICAL HISTORY: pmh of htn, hld, ckd, prediabetic, b/l cataract, hiatal hernia, herniated disc PAST SURGICAL HISTORY: cataract surgery left eye, tonsillectomy, Social History: Smoking: denies Alcohol: denies Drugs: denies Family History: Mother had HTN, RA, Father- congenital heart disease, ESRD-cause of Sister- colon cancer Allergies No Known Allergies Allergy (Verified 02/25/18 14:11) HOME MEDICATIONS: Home Medications Medication Instructions Recorded Carvedilol 25 mg PO BID 04/27/16 Rosuvastatin Calcium [Crestor] 10 mg PO DAILY 08/19/16 Aspirin [[place] Aspirin] 2 tab PO ONCE 12/23/17 Spironolactone 25 mg PO DAILY 04/15/18 Olmesartan/Hydrochlorothiazide 1 each PO DAILY 10/14/18 [Olmesartan-Hctz 40-12.5 mg Tab] REVIEW OF SYSTEMS CONSTITUTIONAL: Admits: generalized weakness, weight change Absent: fever, chills, diaphoresis, loss of appetite, HEENT: Absent: eye pain, visual changes CARDIOVASCULAR: Absent: chest pain, syncope, palpitations, irregular heart rate, lightheadedness , RESPIRATORY: Absent: cough, shortness of breath, dyspnea with exertion, wheezing, hemoptysis GASTROINTESTINAL: Admits: melena, hematochezia Absent: abdominal pain, abdominal distension, nausea, vomiting, GENITOURINARY: Admits: rectal pain Absent: dysuria, frequency, urgency, hesitancy, hematuria, flank pain, MUSCULOSKELETAL: Absent: back pain, HEMATOLOGIC/IMMUNOLOGIC: Absent: frequent infections ENDOCRINE: Admits; weight loss Absent: unexplained weight gain, NEUROLOGIC: Admits to constipation and bloody diarrhea Absent: headache, unsteady gait, seizure, mental status changes, bladder or bowel incontinence PSYCHIATRIC: Absent: anxiety, PHYSICAL EXAMINATION Vital Signs - 24 hr Last Vital Signs Temp Pulse Resp BP Pulse Ox 98.1 F 60 19 112/49 L 100 10/15/18 02:45 10/15/18 02:45 10/15/18 02:45 10/15/18 02:45 10/15/18 02:45 GENERAL: Awake, alert, and fully oriented, in no acute distress. EYES: Pupils equal, round and reactive to light, extraocular movements intact, EARS, NOSE, THROAT: oropharynx clear without exudates. Moist mucous membranes. NECK: supple without lymphadenopathy, JVD, or masses on the neck, no bruit LUNGS: Breath sounds equal, clear to auscultation bilaterally. No wheezes, and no crackles. HEART: Regular rate and rhythm, normal S1 and S2 without murmur, rub or gallop. ABDOMEN: Soft, nontender, not distended, normoactive bowel sounds, no guarding, no rebound, no masses. No hepatomegaly or splenomegaly. MUSCULOSKELETAL: No CVA tenderness. Rectal: Large blood stained external mass attached to the rectum extending towards the pubis. Obstructing the rectum. UPPER EXTREMITIES: 2+ pulses, warm, well-perfused. No cyanosis. No peripheral edema. LOWER EXTREMITIES: 2+ pulses, warm, well-perfused. No peripheral edema. PSYCHIATRIC: Cooperative. Good eye contact. Appropriate mood and affect. Laboratory Results - last 24 hr CBC, BMP 10/14/18 22:05 10/14/18 22:05 ASSESSMENT/PLAN: 73 y/o F, pmh of htn, hld, ckd, prediabetic, is biba after being found passed out in the bathtub surrounded in blood and feces, likely 2/2 to anemia from acute blood loss w/ hb of 9 on arrival and copious bleeding from external rectal mass #Anemia secondary to lower GI bleed likely from rectal mass Hb of 9 on arrival, blood stained mass FOBT positive Pt started on 1U pRBC transfusion in ED Per ED, last Hb at [facility] was Hb 10 IVF ns at 100 Protonix 40 BID IV given Keep NPO Oxycodone/Acetaminophen for rectal pain As per pt, Colorectal surgery likely on for resection of mass-Dr. Whitlock Bx results of the mass due tomorrow at [facility] CT a/p done at oncologist office yesterday- Dr. 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 Whitlock's Office f/u CT s/p from Dr. Man's Office will monitor the mass for further bleed overnight As per pt, likely resection by Dr. Whitlock on #DRAKE BUN/Cre elevated contact PCP for baseline likely 2/2 to prerenal vs acute blood loss Urine Sodium ordered UA ordered IVF at 100 #Hyperkalemia likely due to CKD CMP ordered monitor Potassium closely IVF at 100 #HTN htn meds held due to acute bleed- carvedilol, spironolactone, Olmesartan/HCTZ BP is normotensive 124/64 Monitor BP #CKD IVF ns at 100 monitor BUN/Cre #HLD Hold rosuvastatin- pt NPO #DVT ppx SCDs FEN: NPO, including PO meds Dispo: f/u w/ Dr. Whitlock about Bx results, F/ Dr. Man's office for CT results, manage pt's pain ATTENDING PHYSICIAN STATEMENT I saw and evaluated the patient. I reviewed the resident's note and discussed the case with the resident. I agree with the resident's findings and plan as documented. SUBJECTIVE: OBJECTIVE: ASSESSMENT AND PLAN:
--- NOTE | 2018-10-15 03:34 | PN ---
Teaching Attending Note Name of Resident: Cory Riggs ATTENDING PHYSICIAN STATEMENT I saw and evaluated the patient. I reviewed the resident's note and discussed the case with the resident. I agree with the resident's findings and plan as documented. Seen and examined; please refer to resident note for further historical information. Briefly, this is a 73 y/o AAF presenting to the ER with a CC of rectal bleeding from known rectal mass; she follows with Dr. Pearce at [facility] who discussed the case with the ER and advised against transfer. She will be admitted to the medicine service at [facility]. Hb 10 last week; is now 9. Bleeding form around mass at the rectum that was recently biopsied; results pending. She has soft pressures but her arms are rather large and she is not tachycardic. She is afebrile. Will admit to medicine service with consideration of GI and surgical consultation. VS, labs, imaging reviewed NAD, AAO, resting in bed NC AT EOMI PERRLA RRR s1/2 CN2-12 wnl, no fnd Bleeding oblong sized mass with irregular borders; blood appears to come from base. No surrounding cellulitic changes. EKG reviewed ASSESSMENT AND PLAN: Patient presents to the ER with bleeding rectal mass; this is a known mass for which she followswith Dr. Hicks at [facility]. She is hemodynamically stable; pending labs from OSH but likely 1g lower. Will need to obtain old records to see if significant bleed; if not then will defer ongoing care likely to surgical subspecialties. In the interem we will check coags, type and screen, and monitor on the floor. # Rectal mass, r/o cancer (OSH with bx results pending) # Bleeding from mass # Obesity # Documented hx CHF (normal LVEF 2016 echo; confirm OP studies)
[2018-10-15 06:13] LABS: URINE APPEARANCE CLEAR; URINE BILIRUBIN NEGATIVE (NEGATIVE); URINE COLOR YELLOW; URINE GLUCOSE (UA) NEGATIVE (NEGATIVE); URINE KETONE TRACE (NEGATIVE); URINE LEUK ESTERASE NEGATIVE (NEGATIVE); URINE NITRITE NEGATIVE (NEGATIVE); URINE PROTEIN NEGATIVE (NEGATIVE)
[2018-10-15 08:01] LABS: BASO % 0.5 % (0-2.0); EOS % 1.7 % (0-4.5); HEMATOCRIT 27.7 % (32.4-45.2); LYMPH % 15.9 % (8-40); MCH 26.5 pg (25.7-33.7); MCHC 32.4 g/dl (32.0-36.0); MEAN CELL VOLUME 81.7 fl (80-96); MEAN PLT VOLUME 9.5 fl (7.5-11.1); MONO % 8.7 % (3.8-10.2); NEUT % 73.2 % (42.8-82.8); PLATELET COUNT 157 K/MM3 (134-434); RBC 3.39 M/mm3 (3.60-5.2); RDW 16.3 % (11.6-15.6); WHITE BLOOD COUNT 15.4 K/mm3 (4.0-10.0)
[2018-10-15 08:23] LABS: INR 1.12 (0.83-1.09); PROTHROMBIN TIME (PATIENT) 13.2 SEC (9.7-13.0)
[2018-10-15 08:26] LABS: ACTIVATED PTT 27.2 SECONDS (25.2-36.5)
[2018-10-15 08:27] LABS: ALBUMIN 2.9 g/dl (3.4-5.0); BILIRUBIN,TOTAL 1.4 mg/dL (0.2-1); CALCIUM 7.9 mg/dL (8.5-10.1); CREATININE 2.4 mg/dL (0.55-1.3); POTASSIUM 5.1 mmol/L (3.5-5.1); TOT PROT 5.6 g/dl (6.4-8.2)
[2018-10-15] MEDS ORDERED: PANTOPRAZOLE SODIUM 40 MG VIAL IVPUSH SCH (10:00)
[2018-10-15] MEDS ORDERED: PANTOPRAZOLE 40 MG TABLET (FP) PO SCH (10:00)
[2018-10-15] MEDS ORDERED: CARVEDILOL 25 MG TABLET (FP) PO SCH (10:00)
[2018-10-15] MEDS ORDERED: oxyCODONE HCL 5 MG TABLET PO PRN (11:02)
--- NOTE | 2018-10-15 11:45 | EKG ---
Test Reason : Blood Pressure : / mmHG Vent. Rate : 054 BPM Atrial Rate : 054 BPM P-R Int : 186 ms QRS Dur : 096 ms QT Int : 446 ms P-R-T Axes : 041 -26 -02 degrees QTc Int : 422 ms SINUS BRADYCARDIA OTHERWISE NORMAL ECG WHEN COMPARED WITH ECG OF 23-DEC-2017 16:49, T WAVE INVERSION NOW EVIDENT IN INFERIOR LEADS Confirmed by HAILE SHARMA, GRACE ([id number]) on 10/15/2018 11:45:37 AM Referred By: Confirmed By:GRACE BE MD
--- NOTE | 2018-10-15 12:24 | PN ---
Teaching Attending Note Name of Resident: Darya Hanna ATTENDING PHYSICIAN STATEMENT I saw and evaluated the patient. I reviewed the resident's note and discussed the case with the resident. I agree with the resident's findings and plan as documented. SUBJECTIVE: No fever or chills. No REBOLLEDO. NO SOB, has pain in her rectum. bleeding last night from mass. Has pressure in lower abd and suprapubic area. feels the need for urination but afraid it was going to hurt. no dysuria. reports retention last night for which she had a straight cath. OBJECTIVE: NAD. awake, alert, cooperative . looks ill and pale HEENT: pale conjunctivae, no facial droop. EOMI, round equal pupils, reactive to light. MMM Lungs: CTAB CV: RRR, No MRG Abd: soft, ND, TTP in suprapubic area. NL BS Ext : no edema Inspection of anal area shows large ulcerated mass ( about 15 cm ) protruding out of the rectum. old blood on diaper. no active bleeding ASSESSMENT AND PLAN: Unfortunate 73 y/o lady with h/o HTN, HLP, CKD, prediabetes, and recent diagnosis of a rectal mass who presented with rectal bleeding, and syncopal episode. 1- Bleeding from rectal mass. 2- Acute blood loss anemia 3-DRAKE on CKD 4- SYncope: vasovagal or hypotension 5- Prediabetes. 6- H/o HTN. Plan : - Spoke to surgical PA Galilea Tejada, form [facility]. 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 patietn was tentatively planned for surgical resection and diversion on , with chemo and radiation after then. She was supposed to get Rad Onc eval as out pt. CT C/A/P with oral contrast done yesterday, showed 4 mm nodule in KYE and 2 small nodule in R apex, but no other masses to suggest Mets. - Due to the growing tumor, and the bleeding, she will need the surgery done sooner. - [facility] was called and transfer was arranged. hopefully it will happen today. - Dr. Lindsey Whitlock is the surgeon who will perform the sx - In mean time: - cont IVf - Monitor H&H q 6Hr - place a moulton due to urinary retention - monitor Cr - hold all hypertensive meds - keep NPO for now - SCds , no heparin products Dispo : as above , accepted for transfer to the surgical service at [facility]. d/w patient and her daughter at bed side
[2018-10-15] MEDS ORDERED: oxyCODONE HCL 5 MG TABLET ONE (13:47)
[2018-10-15 14:58] VITALS: BP 147/57; PULSE 59; TEMP 98.3
[2018-10-15 17:09] LABS: HEMATOCRIT 28.6 % (32.4-45.2); HEMOGLOBIN 9.5 GM/dL (10.7-15.3); MCHC 33.3 g/dl (32.0-36.0); MEAN CELL VOLUME 81.1 fl (80-96); MEAN PLT VOLUME 8.3 fl (7.5-11.1); PLATELET COUNT 193 K/MM3 (134-434); RBC 3.52 M/mm3 (3.60-5.2); RDW 15.6 % (11.6-15.6)
[2018-10-15] MEDS ORDERED: ROSUVASTATIN CA 10 MG TABLET (FP) PO SCH (22:00)
== END 2018-10-15 19:26 | disposition short-term general hospital (02) | DRG 375 ==
LOC: JER 20:08 → JERBED 23:31 → J7W 10-15 14:16
PROVIDERS: ADMIT Internal Medicine; ATTEND Internal Medicine
PROC: 30233N1 Transfusion of Nonautologous Red Blood Cells into Peripheral Vein, Percutaneous Approach (ICD-10-PCS; principal; 2018-10-15)
DX: C20 Malignant neoplasm of rectum (principal); K62.5 Hemorrhage of anus and rectum; D62 Acute posthemorrhagic anemia; N17.9 Acute kidney failure, unspecified; I13.0 Hypertensive heart and chronic kidney disease with heart failure and stage 1 through stage 4 chronic kidney disease, or unspecified chronic kidney disease; I95.1 Orthostatic hypotension; R73.03 Prediabetes; K62.9 Disease of anus and rectum, unspecified; K44.9 Diaphragmatic hernia without obstruction or gangrene; E78.5 Hyperlipidemia, unspecified; E87.5 Hyperkalemia; E66.8 Other obesity; Z68.38 Body mass index [BMI] 38.0-38.9, adult; R91.1 Solitary pulmonary nodule; R33.8 Other retention of urine; N18.9 Chronic kidney disease, unspecified; I50.9 Heart failure, unspecified
CPT/HCPCS: 36415; 36430; 36511; 71045-TC-FY; 80053; 81003; 82272; 82550; 84300; 84484; 85025; 85027; 85610; 85730; 86850; 86900; 86901; 86922; 93005; 93010; 99285-25; J7030; P9038; P9058

== ENCOUNTER 2018-11-05 11:59 | Inpatient (IN) | payer OTHER | END 2018-11-08 19:10 | disposition home health service (06) | LOC: JER 11:59 → J7W 11-07 16:20 → JERBED 16:00 → J7W 20:59 ==

== ENCOUNTER 2019-01-22 12:58 | Emergency (ER) | payer OTHER ==
[2019-01-22 13:34] VITALS: BP 140/69; PULSE 66; TEMP 97.7; BMI 37.9
[2019-01-22] MEDS ORDERED: DEXAMETHASONE LIQUID 0.5 MG/5 ML PO ONE (13:51)
[2019-01-22] MEDS ORDERED: DEXAMETHASONE SOD PHOSPHATE 10 MG/1 ML VIAL ONE (13:56)
--- NOTE | 2019-01-22 14:23 | PDOC ---
History of Present Illness - General Chief Complaint: Pain Stated Complaint: THROAT PAIN Time Seen by Provider: 01/22/19 13:36 History Source: Patient Exam Limitations: Clinical Condition - History of Present Illness Initial Comments: 01/22/19 14:15 Patient with past medical history of colon cancer status post colectomy presented with complaint of 2 weeks history of pain to lower anterior throat with painful to swallow. Patient reports she is is cancer survivor and was found to have colon cancer 4 months ago and had to have surgery to remove tumor without complication. Patient reported cancer was localized to colon and has had no problems since surgery. Patient reported she was seen in urgent care week ago for symptoms and chest x-ray done was negative and was told symptoms was viral but has been persistent for 2 weeks now. Patient report painful to swallow over thyroid gland. Denies fever, chills, N/V, cough. Report taking Tylenol for symptoms w/o improvement Is this a multiple visit Asthma Patient?: No Timing/Duration: other (2 weeks) Past History - Past Medical History Allergies/Adverse Reactions: Allergies Allergy/AdvReac Type Severity Reaction Status Date / Time No Known Allergies Allergy Verified 01/22/19 13:28 Home Medications: Ambulatory Orders Carvedilol 25 mg PO BID 04/27/16 Spironolactone 25 mg PO DAILY 04/15/18 Acetaminophen [Tylenol .Regular Strength -] 650 mg PO Q6H PRN tablet 11/07/18 Rosuvastatin [Crestor -] 10 mg PO HS tablet 11/08/18 Amox-Tr/K Cl [Augmentin - 875Mg Tablet] 1 tab PO BID #14 tablet 01/22/19 Anemia: No Asthma: No Cancer: Yes (rectal mass, sarcoma) Cardiac Disorders: No CVA: No COPD: No CHF: No Dementia: No Diabetes: No (pre-diabetic) GI Disorders: Yes (HIATAL HERNIA) HTN: Yes Hypercholesterolemia: Yes Seizures: No - Surgical History Abdominal Surgery: Yes (sarcoma removal 12/11) Neurologic Surgery: No - Immunization History Immunization Up to Date: Yes - Psycho Social/Smoking Cessation Hx Smoking Status: No Smoking History: Never smoked Have you smoked in the past 12 months: No Number of Cigarettes Smoked Daily: 0 Hx Alcohol Use: No Drug/Substance Use Hx: No Substance Use Type: None Hx Substance Use Treatment: No Review of Systems - Review of Systems Is the patient limited Faroese proficient: Yes Constitutional: No: Chills, Fever, Malaise HEENTM: Yes: Symptoms Reported, See HPI, Throat Pain, Difficulty Swallowing. No : Eye Pain, Blurred Vision, Tearing, Recent change in vision, Double Vision, Cataracts, Ear Pain, Ocular Prothesis, Ear Discharge, Nose Pain, Nose Congestion , Tinnitus, Nose Bleeding, Hearing Loss, Throat Swelling, Mouth Pain, Dental Problems, Mouth Swelling, Other Respiratory: No: Symptoms reported, See HPI, Cough, Orthopnea, Shortness of Breath, SOB with Exertion, SOB at Rest, Stridor, Wheezing, Productive cough, Hemoptysis, Other Cardiac (ROS): No: Symptoms Reported, See HPI, Chest Pain, Edema, Irregular Heart Rate, Lightheadedness, Palpitations, Syncope, Chest Tightness, Other ABD/GI: No: Nausea, Vomiting Musculoskeletal: No: Symptoms Reported Integumentary: No: Symptoms Reported Neurological: No: Symptoms reported, Headache, Numbness, Dizziness Endocrine: No: Symptoms Reported, Excessive Sweating, Intolerance to Cold, Intolerance to Heat All Other Systems: Reviewed and Negative *Physical Exam - Vital Signs Last Vital Signs Temp Pulse Resp BP Pulse Ox 97.7 F 66 18 140/69 99 01/22/19 13:32 01/22/19 13:32 01/22/19 13:32 01/22/19 13:32 01/22/19 13:32 - Physical Exam General Appearance: Yes: Nourished, Appropriately Dressed. No: Apparent Distress HEENT: positive: CONSTANTINO, Normal ENT Inspection, Normal Voice, TMs Normal, Pharynx Normal Neck: positive: Normal Thyroid, Supple Respiratory/Chest: positive: Lungs Clear, Normal Breath Sounds. negative: Respiratory Distress, Accessory Muscle Use Cardiovascular: positive: Regular Rhythm, Regular Rate Musculoskeletal: positive: Normal Inspection Extremity: positive: Normal Inspection Integumentary: positive: Normal Color Neurologic: positive: Fully Oriented, Alert, Normal Mood/Affect, Normal Response ED Treatment Course - RADIOLOGY Radiology Studies Ordered: Category Date Time Status NECK SOFT TISSUE [RAD] Stat Radiology 01/22/19 13:51 Ordered - Medications Given in the ED: ED Medications Discontinued Medications Generic Name Dose Route Start Last Admin Trade Name Freq PRN Reason Stop Dose Admin Dexamethasone 10 mg 01/22/19 13:51 01/22/19 13:59 Decadron Liquid - PO 01/22/19 13:52 10 mg ONCE ONE Administration Medical Decision Making - Medical Decision Making 01/22/19 14:23 Patient with past medical history of colon cancer status post colectomy presented with complaint of 2 weeks history of pain to lower anterior throat with painful to swallow. Patient reports she is is cancer survivor and was found to have colon cancer 4 months ago and had to have surgery to remove tumor without complication. Patient reported cancer was localized to colon and has had no problems since surgery. Patient reported she was seen in urgent care week ago for symptoms and chest x-ray done was negative and was told symptoms was viral but has been persistent for 2 weeks now. Patient report painful to swallow over thyroid gland. Denies fever, chills, N/V, cough. Report taking Tylenol for symptoms w/o improvement No pharyngeal erythema on exam. Patient afebrile. Patient reporting subjective pain with swallowing. Given patient history, will do soft tissue neck x-ray to rule out acute pathology. Decadron 10 mg p.o. given for pain 01/22/19 14:28 Soft tissue neck x-ray is unremarkable. Given patient complaint of 2 weeks history of the throat pain, patient be discharged on Augmentin antibiotics with ENT follow-up Discharge - Discharge Information Problems reviewed: Yes Clinical Impression/Diagnosis: Pharyngitis Qualifiers: Pharyngitis/tonsillitis etiology: unspecified etiology Qualified Code(s): J02.9 - Acute pharyngitis, unspecified Condition: Stable Disposition: HOME - Admission No - Additional Discharge Information Prescriptions: Amox-Tr/K Cl [Augmentin - 875Mg Tablet] 1 tab PO BID #14 tablet - Follow up/Referral Referrals: Benitez Garcia MD [Staff Physician] - Oneil Prasad MD [Primary Care Provider] - - Patient Discharge Instructions Patient Printed Discharge Instructions: DI for Pharyngitis/Tonsillopharyngitis -- Adult Additional Instructions: Neck x-ray was negative. Take prescribed medication as prescribed for symptom. Follow-up referred ENT - Post Discharge Activity
== END 2019-01-22 14:30 | disposition home or self-care (01) ==
LOC: JERFT 12:58 → SUPCPDRO 12:58 → JERFT 14:30
DX: J02.9 Acute pharyngitis, unspecified (principal); I10 Essential (primary) hypertension; E78.5 Hyperlipidemia, unspecified; K44.9 Diaphragmatic hernia without obstruction or gangrene; R73.03 Prediabetes; Z85.038 Personal history of other malignant neoplasm of large intestine; Z90.49 Acquired absence of other specified parts of digestive tract
CPT/HCPCS: 70360-TC-FY; 99281-25

== ENCOUNTER 2020-02-16 12:07 | Emergency (ER) | payer OTHER ==
[2020-02-16 12:18] VITALS: TEMP 98; BMI 40.2
[2020-02-16] MEDS ORDERED: METOCLOPRAMIDE HCL INJECTION 10 MG/2 ML VIAL IVPUSH ONE (13:25)
[2020-02-16] MEDS ORDERED: SODIUM CHLORIDE 0.9% 500 ML INFUS.BAG IV ONE (13:25)
[2020-02-16] MEDS ORDERED: METOCLOPRAMIDE HCL INJECTION 10 MG/2 ML VIAL ONE (13:28)
[2020-02-16 15:58] LABS: EOS % 5.8 % (0-4.5); HEMATOCRIT 32.5 % (32.4-45.2); HEMOGLOBIN 10.1 GM/dL (10.7-15.3); LYMPH % 24.6 % (8-40); MCH 24.9 pg (25.7-33.7); MEAN CELL VOLUME 80.2 fl (80-96); MEAN PLT VOLUME 9.3 fl (7.5-11.1); MONO % 7.5 % (3.8-10.2); NEUT % 61.1 % (42.8-82.8); PLATELET COUNT 179 K/MM3 (134-434); RBC 4.05 M/mm3 (3.60-5.2); RDW 16.5 % (11.6-15.6); WHITE BLOOD COUNT 7.7 K/mm3 (4.0-10.0)
[2020-02-16 16:23] LABS: POTASSIUM 4.7 mmol/L (3.5-5.1)
[2020-02-16 16:29] LABS: CREATININE 1.7 mg/dL (0.55-1.3)
[2020-02-16 16:30] LABS: ALBUMIN 3.7 g/dl (3.4-5.0)
[2020-02-16 16:31] LABS: BLOOD UREA NITROGEN 25.8 mg/dL (7-18); CALCIUM 8.7 mg/dL (8.5-10.1)
[2020-02-16 16:37] LABS: BILIRUBIN,TOTAL 0.8 mg/dL (0.2-1)
[2020-02-16 17:04] VITALS: BP 158/96; PULSE 62
== END 2020-02-16 17:04 | disposition home or self-care (01) ==
LOC: JER 12:07
PROC: 3E033GC Introduction of Other Therapeutic Substance into Peripheral Vein, Percutaneous Approach (ICD-10-PCS; principal; 2020-02-16)
DX: R51.9 Headache, unspecified (principal)
CPT/HCPCS: 36415; 70450-TC; 80053; 85025; 99285-25

== ENCOUNTER 2020-03-10 14:54 | Emergency (ER) | payer OTHER ==
[2020-03-10 15:19] VITALS: BP 152/70; PULSE 70; TEMP 98.2; BMI 40.2
[2020-03-10] MEDS ORDERED: ACETAMINOPHEN 500 MG TABLET (FP) PO ONE (16:39)
[2020-03-10] MEDS ORDERED: ACETAMINOPHEN 500 MG TABLET (FP) ONE (16:43)
== END 2020-03-10 19:09 | disposition home or self-care (01) ==
LOC: JER 14:54 → JERFT 14:54
DX: M79.604 Pain in right leg (principal)
CPT/HCPCS: 73590-TC-RT-FY; 93971-TC; 99284-25

== ENCOUNTER 2021-04-19 17:55 | Emergency (ER) | payer OTHER ==
[2021-04-19 18:13] VITALS: BP 174/101; PULSE 73; TEMP 98.1; BMI 40.3
== END 2021-04-19 21:10 | disposition home or self-care (01) ==
LOC: JER 17:55
DX: M79.672 Pain in left foot (principal)
CPT/HCPCS: 73630-TC-LT; 93971-TC; 99284-25

== ENCOUNTER 2021-04-29 14:25 | Emergency (ER) | payer OTHER ==
[2021-04-29 14:46] VITALS: BP 164/84; PULSE 70; TEMP 97.9; BMI 42.0
[2021-04-29] MEDS ORDERED: ACETAMINOPHEN 500 MG TABLET (FP) PO ONE (16:23)
[2021-04-29] MEDS ORDERED: AMOX TR/POT CLAV 875MG/125MG TABLETS (FP) PO ONE (16:23)
[2021-04-29] MEDS ORDERED: AMOX TR/POT CLAV 875MG/125MG TABLETS (FP) ONE (16:31)
[2021-04-29] MEDS ORDERED: ACETAMINOPHEN 325 MG TABLET (FP) ONE (16:31)
== END 2021-04-29 17:03 | disposition home or self-care (01) ==
LOC: JER 14:25
DX: K08.89 Other specified disorders of teeth and supporting structures (principal)
CPT/HCPCS: 99283-25

== ENCOUNTER 2021-08-24 20:40 | Inpatient (IN) | payer OTHER ==
[2021-08-25 01:03] LABS: BASO % 0.7 % (0-2.0); EOS % 6.3 % (0-4.5); HEMATOCRIT 32.9 % (32.4-45.2); HEMOGLOBIN 10.4 GM/dL (10.7-15.3); LYMPH % 25.4 % (8-40); MCH 24.6 pg (25.7-33.7); MCHC 31.7 g/dl (32.0-36.0); MEAN CELL VOLUME 77.7 fl (80-96); MEAN PLT VOLUME 8.4 fl (7.5-11.1); MONO % 8.7 % (3.8-10.2); NEUT % 58.9 % (42.8-82.8); PLATELET COUNT 193 10^3/uL (134-434); RBC 4.24 M/mm3 (3.60-5.2); RDW 15.7 % (11.6-15.6); WHITE BLOOD COUNT 8.8 K/mm3 (4.0-10.0)
[2021-08-25 01:07] LABS: CALCIUM 8.8 mg/dL (8.5-10.1)
[2021-08-25 01:08] LABS: ALBUMIN 3.5 g/dl (3.4-5.0); BLOOD UREA NITROGEN 28.2 mg/dL (7-18)
[2021-08-25 01:11] LABS: CREATININE 1.8 mg/dL (0.55-1.3)
[2021-08-25 01:12] LABS: BILIRUBIN,TOTAL 0.8 mg/dL (0.2-1); TOT PROT 7.1 g/dl (6.4-8.2)
[2021-08-25] MEDS ORDERED: AMPICILLIN NA/SULBACTAM NA 3 GM in SODIUM CHLORIDE 100 ML IVPB ONE (08:50)
[2021-08-25] MEDS ORDERED: PIPERACILLIN/TAZOB 3.375 GM 3.375 GM in DEXTROSE 5%-WATER - 50 ML IVPB SCH (10:00)
[2021-08-25] MEDS ORDERED: SODIUM CHLORIDE 0.9% 1000 ML INFUS.BAG IV ONE (10:05)
[2021-08-25] MEDS ORDERED: PIPERACILLIN/TAZOB 3.375 GM 3.375 GM/50 ML BAG IVPB ONE ×2 (10:37→19:16)
[2021-08-25] MEDS ORDERED: VANCOMYCIN 1 GRAM (PRE-DOCKED) 1,000 MG/250 ML BAG IVPB ONE (13:00)
[2021-08-25] MEDS: VANCOMYCIN 1 GRAM (PRE-DOCKED) 1,000 MG/250 ML BAG IVPB SCH (13:27)
[2021-08-25] MEDS: PIPERACILLIN/TAZOB 3.375 GM 3.375 GM in DEXTROSE 5%-WATER - 50 ML IVPB SCH (19:10)
[2021-08-25] MEDS ORDERED: LIDOCAINE 5% TOPICAL PATCH TP ONE (21:15)
[2021-08-25] MEDS ORDERED: CARVEDILOL 25 MG TABLET (FP) ONE (22:03)
[2021-08-25] MEDS ORDERED: LIDOCAINE 5% TOPICAL PATCH ONE (22:03)
[2021-08-25] MEDS ORDERED: ROSUVASTATIN CA 20 MG TABLET ONE (22:03)
[2021-08-25] MEDS: CARVEDILOL 25 MG TABLET (FP) PO SCH (22:05)
[2021-08-25] MEDS: ROSUVASTATIN CA 10 MG TABLET PO SCH (22:13)
[2021-08-26 01:18] VITALS: BMI 42.0
[2021-08-26] MEDS ORDERED: DEXTROSE 5%-WATER - 50 ML IVPB ONE ×3 (01:29→16:22)
[2021-08-26] MEDS ORDERED: PIPERACILLIN/TAZOBACTAM 3.375 GM VIAL IVPB ONE ×3 (01:29→16:22)
[2021-08-26] MEDS: ACETAMINOPHEN 325 MG TABLET (FP) PO PRN ×2 (01:38→22:04)
[2021-08-26] MEDS: PIPERACILLIN/TAZOB 3.375 GM 3.375 GM in DEXTROSE 5%-WATER - 50 ML IVPB SCH ×3 (01:39→17:05)
[2021-08-26] MEDS ORDERED: LIDOCAINE PATCH REMOVAL MC SCH (09:00)
[2021-08-26] MEDS: LOSARTAN POTASSIUM 50 MG TABLET PO SCH (09:07)
[2021-08-26] MEDS: CARVEDILOL 25 MG TABLET (FP) PO SCH ×2 (09:07→21:59)
[2021-08-26 09:43] LABS: BASO % 0.9 % (0-2.0); EOS % 5.8 % (0-4.5); HEMOGLOBIN 10.6 GM/dL (10.7-15.3); LYMPH % 25.2 % (8-40); MCHC 32.2 g/dl (32.0-36.0); MEAN CELL VOLUME 77.7 fl (80-96); MEAN PLT VOLUME 8.5 fl (7.5-11.1); MONO % 8.2 % (3.8-10.2); NEUT % 59.9 % (42.8-82.8); PLATELET COUNT 185 10^3/uL (134-434); RBC 4.24 M/mm3 (3.60-5.2); RDW 15.9 % (11.6-15.6); WHITE BLOOD COUNT 8.2 K/mm3 (4.0-10.0)
[2021-08-26 10:19] LABS: ALBUMIN 3.3 g/dl (3.4-5.0); BLOOD UREA NITROGEN 24.5 mg/dL (7-18); CALCIUM 8.6 mg/dL (8.5-10.1)
[2021-08-26 10:23] LABS: CREATININE 1.7 mg/dL (0.55-1.3)
[2021-08-26 10:24] LABS: BILIRUBIN,TOTAL 1.4 mg/dL (0.2-1); TOT PROT 6.7 g/dl (6.4-8.2)
[2021-08-26] MEDS: VANCOMYCIN 1 GRAM (PRE-DOCKED) 1,000 MG/250 ML BAG IVPB SCH (11:54)
[2021-08-26 16:59] LABS: BILIRUBIN,DIRECT 0.2 mg/dL (0.0-0.2)
[2021-08-26] MEDS: ROSUVASTATIN CA 10 MG TABLET PO SCH (21:59)
[2021-08-27] MEDS ORDERED: PIPERACILLIN/TAZOBACTAM 3.375 GM VIAL IVPB ONE ×3 (00:50→16:27)
[2021-08-27] MEDS ORDERED: DEXTROSE 5%-WATER - 50 ML IVPB ONE ×3 (00:51→16:28)
[2021-08-27] MEDS: PIPERACILLIN/TAZOB 3.375 GM 3.375 GM in DEXTROSE 5%-WATER - 50 ML IVPB SCH ×3 (01:28→16:59)
[2021-08-27 08:45] LABS: HEMATOCRIT 32.2 % (32.4-45.2); HEMOGLOBIN 10.3 GM/dL (10.7-15.3); MCHC 32.1 g/dl (32.0-36.0); MEAN CELL VOLUME 77.8 fl (80-96); MEAN PLT VOLUME 8.3 fl (7.5-11.1); PLATELET COUNT 181 10^3/uL (134-434); RBC 4.14 M/mm3 (3.60-5.2); RDW 16.2 % (11.6-15.6); WHITE BLOOD COUNT 7.6 K/mm3 (4.0-10.0)
[2021-08-27 09:15] LABS: CALCIUM 8.5 mg/dL (8.5-10.1)
[2021-08-27 09:16] LABS: ALBUMIN 3.2 g/dl (3.4-5.0); BLOOD UREA NITROGEN 22.6 mg/dL (7-18)
[2021-08-27 09:19] LABS: CREATININE 1.8 mg/dL (0.55-1.3)
[2021-08-27 09:20] LABS: TOT PROT 6.4 g/dl (6.4-8.2)
[2021-08-27] MEDS: LOSARTAN POTASSIUM 50 MG TABLET PO SCH (10:43)
[2021-08-27] MEDS: CARVEDILOL 25 MG TABLET (FP) PO SCH (10:43)
[2021-08-27 15:02] VITALS: BP 142/85; PULSE 58; TEMP 98.5
== END 2021-08-27 19:50 | disposition home or self-care (01) | DRG 566 ==
LOC: JER 20:40 → JERBED 08-25 05:55 → J7W 08-26 00:30
PROVIDERS: ADMIT Internal Medicine; ATTEND Internal Medicine
DX: M85.2 Hyperostosis of skull (principal); I12.9 Hypertensive chronic kidney disease with stage 1 through stage 4 chronic kidney disease, or unspecified chronic kidney disease; N18.9 Chronic kidney disease, unspecified; Z85.048 Personal history of other malignant neoplasm of rectum, rectosigmoid junction, and anus; R73.03 Prediabetes; K44.9 Diaphragmatic hernia without obstruction or gangrene; E78.5 Hyperlipidemia, unspecified; J32.9 Chronic sinusitis, unspecified; R22.0 Localized swelling, mass and lump, head
CPT/HCPCS: 36415; 70450-TC; 70486-TC; 70540; 80053; 82248; 82728; 83021; 83540; 83550; 84155; 84165; 85025; 85027; 85651; 85660; 86140; 99285-25; C9803-CS; U0003; U0005

== ENCOUNTER 2021-09-21 18:07 | Emergency (ER) | payer OTHER ==
[2021-09-21 18:24] VITALS: BP 169/84; PULSE 66; RESP 19; TEMP 98.3; BMI 40.2
[2021-09-21] MEDS ORDERED: LIDOCAINE VISCOUS 2% ORAL/TOP 15 ML UNIT-DOSE CUP MM ONE (18:47)
[2021-09-21] MEDS ORDERED: LIDOCAINE VISCOUS 2% ORAL/TOP 15 ML UNIT-DOSE CUP ONE (18:55)
== END 2021-09-21 19:17 | disposition home or self-care (01) ==
LOC: JERFT 18:07
DX: K13.70 Unspecified lesions of oral mucosa (principal)
CPT/HCPCS: 99283-25

== ENCOUNTER 2022-05-06 22:39 | Emergency (ER) | payer OTHER ==
[2022-05-06 22:47] VITALS: BMI 40.2
[2022-05-07] MEDS ORDERED: ACETAMINOPHEN 325 MG TABLET (FP) PO ONE (00:17)
[2022-05-07] MEDS ORDERED: ACETAMINOPHEN 325 MG TABLET (FP) ONE ×2 (00:46→04:08)
[2022-05-07 01:43] VITALS: TEMP 98.3
[2022-05-07 03:32] VITALS: BP 151/85; PULSE 76; RESP 20
== END 2022-05-07 04:23 | disposition home or self-care (01) ==
LOC: JER 22:39
DX: R22.41 Localized swelling, mass and lump, right lower limb (principal)
CPT/HCPCS: 73610-TC-RT-FY; 73630-TC-RT-FY; 93971-TC; 99284-25

== ENCOUNTER 2023-05-31 22:35 | Inpatient (IN) | payer OTHER ==
[2023-05-31] MEDS ORDERED: ACETAMINOPHEN INJECTION 100 ML IVPB ONE (23:07)
[2023-05-31] MEDS ORDERED: ASPIRIN 81 MG CHEWABLE TABLETS ONE (23:07)
[2023-05-31] MEDS: ACETAMINOPHEN 1000 MG/100 ML BAG IVPB ONE (23:32)
[2023-05-31] MEDS: ASPIRIN 81 MG CHEWABLE TABLETS PO ONE (23:32)
[2023-05-31 23:41] LABS: BASO % 1.2 % (0-2.0); EOS % 4.9 % (0-4.5); HEMATOCRIT 34.4 % (32.4-45.2); LYMPH % 25.2 % (8-40); MCH 24.7 pg (25.7-33.7); MCHC 31.9 g/dl (32.0-36.0); MEAN CELL VOLUME 77.5 fl (80-96); MEAN PLT VOLUME 7.9 fl (7.5-11.1); MONO % 10.1 % (3.8-10.2); NEUT % 58.6 % (42.8-82.8); PLATELET COUNT 282 10^3/uL (134-434); RBC 4.44 M/mm3 (3.60-5.2); RDW 15.5 % (11.6-15.6); WHITE BLOOD COUNT 8.4 K/mm3 (4.0-10.0)
[2023-05-31 23:49] LABS: INR 1.03 (0.83-1.09)
[2023-05-31 23:52] LABS: ACTIVATED PTT 30.7 SECONDS (25.2-36.5)
[2023-06-01] MEDS ORDERED: AZITHROMYCIN IVPB 500 MG/250 ML BAG IVPB ONE ×2 (00:49→08:29)
[2023-06-01] MEDS ORDERED: CEFTRIAXONE 1 GM/50 ML BAG ONE ×2 (00:49→08:29)
[2023-06-01] MEDS: CEFTRIAXONE 1,000 MG in DEXTROSE 5%-WATER - 50 ML IVPB ONE (01:42)
[2023-06-01] MEDS: AZITHROMYCIN IVPB 500 MG in DEXTROSE 5%-WATER - 250 ML IVPB ONE (01:54)
[2023-06-01 02:30] LABS: POTASSIUM 4.5 mmol/L (3.5-5.1)
[2023-06-01 02:31] LABS: CALCIUM 8.9 mg/dL (8.5-10.1)
[2023-06-01 02:35] LABS: CREATININE 1.7 mg/dL (0.55-1.3)
[2023-06-01 02:37] LABS: BILIRUBIN,TOTAL 0.8 mg/dL (0.2-1); TOT PROT 6.6 g/dl (6.4-8.2)
[2023-06-01] MEDS ORDERED: HEPARIN NA (PORCINE) 5,000 UNITS/ML 1ML VIAL IVPUSH PRN ×2 (02:37)
[2023-06-01] MEDS ORDERED: LIDOCAINE 4% PATCH TP ONE (02:42)
[2023-06-01] MEDS ORDERED: HEPARIN INFUSION - 25,000 UNITS/500 ML INFUS.BAG IVPB ONE (02:45)
[2023-06-01] MEDS ORDERED: FUROSEMIDE 40 MG/4 ML INJECTABLE VIAL ONE (03:22)
[2023-06-01] MEDS: HEPARIN INFUSION - 25,000 UNITS/500 ML INFUS.BAG IVPB SCH (03:39)
[2023-06-01] MEDS: LIDOCAINE 4% PATCH TP ONE (03:44)
[2023-06-01 06:27] LABS: HEMATOCRIT 33.8 % (32.4-45.2); HEMOGLOBIN 10.6 GM/dL (10.7-15.3); MCH 24.6 pg (25.7-33.7); MCHC 31.3 g/dl (32.0-36.0); MEAN CELL VOLUME 78.5 fl (80-96); MEAN PLT VOLUME 8.1 fl (7.5-11.1); PLATELET COUNT 268 10^3/uL (134-434); RDW 15.1 % (11.6-15.6); WHITE BLOOD COUNT 8.4 K/mm3 (4.0-10.0)
[2023-06-01 06:33] LABS: POTASSIUM 4.1 mmol/L (3.5-5.1)
[2023-06-01 06:39] LABS: CALCIUM 8.7 mg/dL (8.5-10.1)
[2023-06-01 06:40] LABS: ALBUMIN 2.9 g/dl (3.4-5.0); BLOOD UREA NITROGEN 26.8 mg/dL (7-18)
[2023-06-01 06:43] LABS: CREATININE 1.6 mg/dL (0.55-1.3); PHOSPHOROUS 2.3 mg/dL (2.5-4.9)
[2023-06-01 06:44] LABS: TOT PROT 6.3 g/dl (6.4-8.2)
[2023-06-01 06:45] LABS: BILIRUBIN,TOTAL 0.8 mg/dL (0.2-1)
[2023-06-01 09:00] VITALS: RESP 20
[2023-06-01] MEDS: CEFTRIAXONE 1 GM in DEXTROSE 5%-WATER - 50 ML IVPB SCH (16:24)
[2023-06-01] MEDS: NAPH,MB-DB/K PH,MBDB POWDER PACKET PO ONE ×2 (16:25)
[2023-06-01] MEDS: AZITHROMYCIN IVPB 500 MG/250 ML BAG IVPB ONE (16:25)
[2023-06-01] MEDS: LIDOCAINE PATCH REMOVAL MC ONE (16:25)
[2023-06-01] MEDS: CARVEDILOL 25 MG TABLET (FP) PO SCH (21:41)
[2023-06-01] MEDS: HEPARIN NA (PORCINE) 5,000 UNITS/ML 1ML VIAL SQ SCH (21:42)
[2023-06-02 08:59] LABS: BASO % 1.1 % (0-2.0); EOS % 5.3 % (0-4.5); HEMOGLOBIN 10.9 GM/dL (10.7-15.3); LYMPH % 33.1 % (8-40); MCH 24.5 pg (25.7-33.7); MCHC 31.1 g/dl (32.0-36.0); MEAN CELL VOLUME 78.8 fl (80-96); MEAN PLT VOLUME 8.6 fl (7.5-11.1); MONO % 9.5 % (3.8-10.2); PLATELET COUNT 250 10^3/uL (134-434); RBC 4.44 M/mm3 (3.60-5.2); RDW 15.4 % (11.6-15.6); WHITE BLOOD COUNT 6.9 K/mm3 (4.0-10.0)
[2023-06-02 09:35] LABS: ALBUMIN 3.1 g/dl (3.4-5.0); CALCIUM 9.2 mg/dL (8.5-10.1); MAGNESIUM 2.1 mg/dL (1.8-2.4); POTASSIUM 4.5 mmol/L (3.5-5.1)
[2023-06-02 09:36] LABS: CREATININE 1.6 mg/dL (0.55-1.3); PHOSPHOROUS 3.4 mg/dL (2.5-4.9); TOT PROT 6.7 g/dl (6.4-8.2)
[2023-06-02] MEDS: LOSARTAN POTASSIUM 50 MG TABLET PO SCH (09:42)
[2023-06-02 15:59] VITALS: BMI 38.9
[2023-06-02] MEDS: SODIUM CHLORIDE 1,000 ML IV SCH (21:35)
[2023-06-03 07:16] LABS: BASO % 0.7 % (0-2.0); EOS % 5.3 % (0-4.5); HEMATOCRIT 31.5 % (32.4-45.2); HEMOGLOBIN 10.3 GM/dL (10.7-15.3); LYMPH % 31.8 % (8-40); MCH 25.2 pg (25.7-33.7); MCHC 32.5 g/dl (32.0-36.0); MEAN CELL VOLUME 77.5 fl (80-96); MEAN PLT VOLUME 8.2 fl (7.5-11.1); MONO % 10.4 % (3.8-10.2); NEUT % 51.8 % (42.8-82.8); PLATELET COUNT 226 10^3/uL (134-434); RBC 4.07 M/mm3 (3.60-5.2); RDW 15.6 % (11.6-15.6); WHITE BLOOD COUNT 7.8 K/mm3 (4.0-10.0)
[2023-06-03 07:19] LABS: POTASSIUM 4.3 mmol/L (3.5-5.1)
[2023-06-03 07:21] LABS: CALCIUM 8.6 mg/dL (8.5-10.1)
[2023-06-03 07:22] LABS: ALBUMIN 2.7 g/dl (3.4-5.0); BLOOD UREA NITROGEN 24.6 mg/dL (7-18)
[2023-06-03 07:25] LABS: CREATININE 1.6 mg/dL (0.55-1.3); PHOSPHOROUS 3.2 mg/dL (2.5-4.9)
[2023-06-03 07:26] LABS: BILIRUBIN,TOTAL 0.4 mg/dL (0.2-1)
[2023-06-03 13:26] VITALS: BP 115/74; PULSE 88; TEMP 98.1
== END 2023-06-03 16:20 | disposition home health service (06) | DRG 204 ==
LOC: JER 22:35 → JERBED 23:06 → J4W 06-01 11:14 → OBSVTOIN 06-01 13:22
PROVIDERS: ADMIT Internal Medicine; ATTEND Internal Medicine
DX: R07.81 Pleurodynia (principal); I12.9 Hypertensive chronic kidney disease with stage 1 through stage 4 chronic kidney disease, or unspecified chronic kidney disease; N18.30 Chronic kidney disease, stage 3 unspecified; E78.5 Hyperlipidemia, unspecified; Z93.3 Colostomy status; E66.9 Obesity, unspecified; Z68.38 Body mass index [BMI] 38.0-38.9, adult; I44.0 Atrioventricular block, first degree; D73.4 Cyst of spleen; Z85.048 Personal history of other malignant neoplasm of rectum, rectosigmoid junction, and anus
CPT/HCPCS: 0241U-QW; 36415; 71045-TC-FY; 71250-TC; 76775-TC; 80053; 80061; 82550; 83735; 83880; 84100; 84443; 84484; 85025; 85027; 85379; 85610; 85730; 86682; 93005; 93010; 93306-TC; 93970-TC; 97116-GP; 97162-GP; 99285-25; G0378; J0131; J1644

== ENCOUNTER 2023-09-08 10:28 | Emergency (ER) | payer OTHER ==
[2023-09-08 10:44] VITALS: BP 178/94; PULSE 64; RESP 16; TEMP 97.9; BMI 40.2
== END 2023-09-08 12:04 | disposition home or self-care (01) ==
LOC: JERFT 10:28
DX: R68.84 Jaw pain (principal); R51.9 Headache, unspecified
CPT/HCPCS: 99283-25

== ENCOUNTER 2023-10-17 19:49 | Emergency (ER) | payer OTHER ==
[2023-10-17 20:01] VITALS: BP 175/78; PULSE 59; RESP 20; TEMP 97.3; BMI 41.5
[2023-10-17] MEDS: BENZOCAINE 20 % GEL TUBE MM PRN (21:11)
[2023-10-17 21:48] LABS: PH,URINE 5.5 (5.0-8.0); URINE APPEARANCE CLEAR; URINE BILIRUBIN NEGATIVE (NEGATIVE); URINE COLOR YELLOW; URINE GLUCOSE (UA) NEGATIVE (NEGATIVE); URINE KETONE NEGATIVE (NEGATIVE); URINE LEUK ESTERASE NEGATIVE (NEGATIVE); URINE NITRITE NEGATIVE (NEGATIVE); URINE PROTEIN NEGATIVE (NEGATIVE)
== END 2023-10-17 22:38 | disposition home or self-care (01) ==
LOC: JER 19:49
DX: K12.0 Recurrent oral aphthae (principal); R10.30 Lower abdominal pain, unspecified; R35.0 Frequency of micturition
CPT/HCPCS: 81003; 82962; 87086; 99283-25

== ENCOUNTER 2023-10-23 20:18 | Emergency (ER) | payer OTHER ==
[2023-10-23 20:33] VITALS: BP 155/86; PULSE 65; RESP 20; TEMP 98.4; BMI 41.5
[2023-10-23] MEDS ORDERED: LIDOCAINE HCL 1%, 10 MG/ML (20ML VIAL) ONE (21:17)
[2023-10-23] MEDS ORDERED: BUPIVACAINE HCL/PF 0.5% (5MG/ML) 10 ML VIAL ONE (21:17)
[2023-10-23] MEDS ORDERED: AMOX TR/POT CLAV 875MG/125MG TABLETS (FP) ONE (21:46)
[2023-10-23] MEDS: BUPIVACAINE HCL/PF 0.5% (5 MG/ML) 30 ML VIAL IJ ONE (21:52)
[2023-10-23] MEDS: ACETAMINOPHEN 1000 MG/100 ML BAG IVPB ONE (21:52)
[2023-10-23] MEDS: LIDOCAINE HCL 1%, 10 MG/ML (50 mL VIAL) SQ ONE (21:52)
[2023-10-23] MEDS: AMOX TR/POT CLAV 875MG/125MG TABLETS (FP) PO ONE (21:52)
== END 2023-10-23 22:06 | disposition home or self-care (01) ==
LOC: JER 20:18
DX: K02.9 Dental caries, unspecified (principal); K08.89 Other specified disorders of teeth and supporting structures
CPT/HCPCS: 99283-25

== ENCOUNTER 2023-11-19 20:29 | Emergency (ER) | payer OTHER ==
[2023-11-19 20:43] VITALS: BP 173/82; PULSE 72; RESP 18; TEMP 97.8; BMI 40.2
[2023-11-19] MEDS ORDERED: METOCLOPRAMIDE HCL INJECTION 10 MG/2 ML VIAL ONE (22:20)
[2023-11-19] MEDS ORDERED: ACETAMINOPHEN INJECTION 100 ML ONE (22:20)
[2023-11-19 22:23] LABS: BASO % 1.2 % (0-2.0); EOS % 5.8 % (0-4.5); HEMATOCRIT 33.9 % (32.4-45.2); HEMOGLOBIN 10.6 GM/dL (10.7-15.3); LYMPH % 25.8 % (8-40); MCH 24.6 pg (25.7-33.7); MCHC 31.4 g/dl (32.0-36.0); MEAN CELL VOLUME 78.4 fl (80-96); MEAN PLT VOLUME 8.2 fl (7.5-11.1); MONO % 6.3 % (3.8-10.2); NEUT % 60.9 % (42.8-82.8); PLATELET COUNT 184 10^3/uL (134-434); RBC 4.33 M/mm3 (3.60-5.2); RDW 15.9 % (11.6-15.6); WHITE BLOOD COUNT 7.6 K/mm3 (4.0-10.0)
[2023-11-19] MEDS: METOCLOPRAMIDE HCL INJECTION 10 MG/2 ML VIAL IVPB ONE (22:28)
[2023-11-19] MEDS: ACETAMINOPHEN 1000 MG/100 ML BAG IVPB ONE (22:28)
[2023-11-19 22:29] LABS: INR 0.97 (0.83-1.09); PROTHROMBIN TIME (PATIENT) 11.2 SEC (9.7-13.0)
[2023-11-19 22:31] LABS: ACTIVATED PTT 31.7 SECONDS (25.2-36.5)
[2023-11-19 22:51] LABS: POTASSIUM 4.4 mmol/L (3.5-5.1)
[2023-11-19 22:53] LABS: ALBUMIN 3.5 g/dl (3.4-5.0); BLOOD UREA NITROGEN 26.6 mg/dL (7-18); MAGNESIUM 1.9 mg/dL (1.8-2.4)
[2023-11-19 22:57] LABS: CREATININE 1.6 mg/dL (0.55-1.3)
[2023-11-19 22:58] LABS: BILIRUBIN,TOTAL 0.7 mg/dL (0.2-1); TOT PROT 6.8 g/dl (6.4-8.2)
[2023-11-19 23:47] LABS: ERYTHROCYTE SEDIMENTATION RATE 16 mm/hr (0-30)
== END 2023-11-20 02:02 | disposition home or self-care (01) ==
LOC: JER 20:29
PROC: 3E033NZ Introduction of Analgesics, Hypnotics, Sedatives into Peripheral Vein, Percutaneous Approach (ICD-10-PCS; principal; 2023-11-19)
PROC: 3E033GC Introduction of Other Therapeutic Substance into Peripheral Vein, Percutaneous Approach (ICD-10-PCS; 2023-11-19)
DX: R51.9 Headache, unspecified (principal); R68.84 Jaw pain
CPT/HCPCS: 36415; 70450-TC; 80053; 83735; 85025; 85610; 85651; 85730; 86140; 99284-25; J0131

== ENCOUNTER 2024-07-21 20:47 | Emergency (ER) | payer OTHER ==
[2024-07-21 20:56] VITALS: BP 182/82; PULSE 68; RESP 20; TEMP 98.6; BMI 40.2
[2024-07-21] MEDS ORDERED: BUPIVACAINE HCL/PF 0.5% (5MG/ML) 10 ML VIAL ONE (22:03)
[2024-07-21] MEDS: BUPIVACAINE HCL/PF 0.5% (5 MG/ML) 30 ML VIAL IJ ONE (22:12)
== END 2024-07-21 22:55 | disposition home or self-care (01) ==
LOC: JER 20:47
DX: K05.00 Acute gingivitis, plaque induced (principal); R68.84 Jaw pain
CPT/HCPCS: 99283-25

== ENCOUNTER 2024-12-20 17:16 | Emergency (ER) | payer OTHER ==
[2024-12-20 17:25] VITALS: BP 123/70; PULSE 68; RESP 18; TEMP 98.1; BMI 40.2
== END 2024-12-20 20:40 | disposition home or self-care (01) ==
LOC: JER 17:16
DX: M79.662 Pain in left lower leg (principal)
CPT/HCPCS: 93970-TC; 99283-25